=== PATIENT | female | born 1980 | race Caucasian/White ===

== ENCOUNTER 2019-07-10 11:49 | Emergency (ER) | payer OTHER, SELFPAY ==
[2019-07-10 12:00] VITALS: BP 115/83; PULSE 96; RESP 16; TEMP 36.8; O2SAT 99
--- NOTE | 2019-07-10 12:06 | ED.GENADULT ---
HPI - General Adult General Chief complaint: Headache Stated complaint: headache/right toe pain Time Seen by Provider: 07/10/19 12:06 Source: patient and RN notes reviewed Mode of arrival: ambulatory Limitations: no limitations History of Present Illness HPI narrative: 39-year-old female presents with complains of headache without aura for the past 4 days. Ibuprofen and Benadryl, last this morning @ 04:00 without relief. Yvonne says this SHEARER is not the WORST one of her life. History of Chiari malformation which causes her daily headaches after her decompression head surgery. Yvonne says she is waiting to have a shunt placed due to her recurrent SHEARER, wants to wait until her daughter graduate high school due to her long recover time from her previous surgery. No neck stiffness. No fever or chills. No URI symptoms. No head injury. History of migraines. Denies dizziness, vision change, confusion, or seizure activity. Yvonne denies being , history of Hysterectomy. The patient reports they have not been diagnosed with COVID-19. The patient reports they are not waiting for the results of a COVID-19 lab test. The patient reports they do not have fever, chills, weakness, fatigue, myalgia, or facial swelling. The patient reports they do not have a new or worsening cough or shortness of breath. Denies chest pain. The patient reports they do not have any rhinorrhea, congestion, sore throat, nausea, vomiting, abdominal pain, and diarrhea. Tolerating po intake well. Denies recent traveling. Denies concerns for COVID-19 or exposures been home since [id number] order except for essential household needs, working, and return home. At this time, patient is not suspected of having COVID-19. Complains of Right great toenail growing improperly after an injury 1 year ago. Yvonne is concern that fungus has set up in her toe. She cut majority of the toenail off due to it's appearance, no other treatment. Yvonne says the summer she was on the beach and opened a beach chair cause it clap down on her RT and LT great toenails. The LT toenail grew back properly but the RT has not. Denies drainage or swelling. Denies tenderness, numbness, tingling, or loss of mobility. No exacerbating factors. Denies inability to bear weight. Denies suspect foreign body. Denies fever or chills. Some parts of this dictation were generated by voice recognition software and may contain typographical and/or grammatical inaccuracies. Related Data Home Medications Medication Instructions Recorded Confirmed No Home Medications 07/10/19 07/10/19 Allergies Allergy/AdvReac Type Severity Reaction Status Date / Time morphine Allergy Mild NAUSEA AND Verified 03/19/18 14:45 VOMITING; SEVERE MIGRAINE NSAIDS (Non-Steroidal Allergy Unknown Verified 03/19/18 14:45 Anti-Inflamma HAIR DYE Allergy Unknown Uncoded 12/30/14 16:55 Review of Systems Review of Systems: Narrative: CONSTITUTIONAL: Denies fever, chills, sweats. EYES: Denies visual changes, redness, discharge. ENT: Denies rhinorrhea, congestion, sore throat, otalgia. CARDIOVASCULAR: Denies chest pain, palpitations, edema. RESPIRATORY: Denies dyspnea, wheezing, cough. GASTROINTESTINAL: Denies abdominal pain, nausea, vomiting, or diarrhea. GENITOURINARY: Denies dysuria, hematuria, abnormal discharge. SKIN: Denies rash or itching. Right great toenail growing improperly concern for fungus. MUSCULOSKELETAL: Denies acute back pain, joint pain, or myalgia. NEUROLOGIC: Denies numbness or focal weakness. Complaints of headaches. PSYCHIATRIC: Denies anxiety or depression. All systems reviewed & are unremarkable except as noted in HPI and below. [facility] Past Medical History Medical History (Updated 07/10/19 @ 14:41 by LILIYA Wheeler) Chiari malformation Neck pain Rheumatoid arthritis Uterine cancer Surgical History Surgical History (Updated 07/10/19 @ 14:41 by Trudy Garcia
[2019-07-10] MEDS: KETOROLAC (*BKC) 60 MG/2 ML VIAL IM (12:23)
== END 2019-07-10 12:55 | disposition home or self-care (01) ==
PROVIDERS: Emergency Provider Nurse Practitioner Family
DX: R51 Headache (principal); F17.210 Nicotine dependence, cigarettes, uncomplicated; Z98.2 Presence of cerebrospinal fluid drainage device
CPT/HCPCS: 96372; 99213; G0463; J1885

== ENCOUNTER 2019-07-22 12:32 | Emergency (ER) | payer OTHER, SELFPAY ==
--- NOTE | ~2019-07-22 | XR_ITS ---
XR ankle RT min 3V 07/22/2019 12:51 INDICATION: Right ankle pain PROCEDURE: 4 views right ankle COMPARISON: No prior studies for comparison. FINDINGS: Fracture, dislocation or subluxation is not identified. There is an osteochondral defect in volving the superior medial aspect of the talus. The soft tissues appear within normal limits. No fo reign bodies are identified. 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 Reviewed, dictated and finalized at location A.
--- NOTE | 2019-07-22 12:39 | ED.GENADULT ---
HPI - General Adult General Chief complaint: Extremity Injury, Lower Stated complaint: right ankle injury Time Seen by Provider: 07/22/19 12:39 Source: patient Mode of arrival: ambulatory Limitations: no limitations History of Present Illness HPI narrative: 39-year-old female patient presents to the [facility] with complaints of right ankle pain. Patient states that she was push mowing the grass yesterday and states that she thinks she did fell in some kind of arrival White and states that she rolled her right ankle. Patient states that since then she has been having pain and having trouble walking on it. Patient states that most of her pain is located on the medial side of the ankle however she does feel some numbness on the fourth and fifth digits of the toes on the right foot. Patient states she is been taking ibuprofen for pain. Patient states that she did fracture that foot in the past and had to have surgery on it about 2 years ago. Related Data Home Medications Medication Instructions Recorded Confirmed No Home Medications 07/10/19 07/22/19 Allergies Allergy/AdvReac Type Severity Reaction Status Date / Time morphine AdvReac Mild NAUSEA AND Verified 07/22/19 12:48 VOMITING; SEVERE MIGRAINE NSAIDS (Non-Steroidal AdvReac Unknown Nausea and Verified 07/22/19 12:48 Anti-Inflamma Vomiting HAIR DYE Allergy Unknown Uncoded 07/22/19 12:48 Review of Systems Review of Systems: Narrative: CONSTITUTIONAL: Denies fever, chills, or sweats. EYES: Denies visual changes, redness, or discharge. ENT: Denies rhinorrhea, congestion, sore throat, or otalgia. CARDIOVASCULAR: Denies chest pain, palpitations, or edema. RESPIRATORY: Denies cough or dyspnea. GASTROINTESTINAL: Denies abdominal pain, nausea, vomiting, or diarrhea. GENITOURINARY: Denies dysuria or hematuria. SKIN: Denies rash or itching. MUSCULOSKELETAL: Denies back pain, joint pain, or myalgia. Positive right ankle pain NEUROLOGIC: Denies headache, numbness, or weakness. PSYCHIATRIC: Denies anxiety or depression. [facility] Past Medical History Medical History Chiari malformation Neck pain Rheumatoid arthritis Uterine cancer Surgical History Surgical History History of bilateral breast reduction surgery History of brain surgery Decompression surgery History of hysterectomy Family History Family History Father Alive and well Mother Hypertension Heart disease Seizures Grandparent Family history of malignant neoplasm of cervix Father Patient's father is Mother Family history of epilepsy Social History Social History Smoking packs per day: 0.25 Smoking cigarettes per day: 5.0 Years smoked: 10 Smoking pack-years: 2.50 Smoking status: Light tobacco smoker Tobacco type: cigarettes Second hand tobacco smoke exposure: No Alcohol intake: current Substance use: current Substance use type: marijuana Additional occupation/education comments: Currently working from home scheduled to return next week per Yvonne Gender identity (if verbalized by the patient): Female Comments At the time of my signature I agree with nursing past medical history, surgical, social, and family history. There is no relevant family history pertinent to the presenting complaint. Exam Narrative: Exam Narrative: GENERAL: Well-appearing, well-nourished, and in no acute distress. HEAD: Normocephalic, atraumatic. EYES: PERRLA and EOMI. ENT: Nares clear, no rhinorrhea or epistaxis. Mucous membranes moist. NECK: Supple. No lymphadenopathy CHEST: Clear to auscultation. No respiratory distress. HEART: Regular rate and rhythm. No murmur heard. Normal peripheral pulses. ABDOMEN: Soft, nontender, nondistended, norm
[2019-07-22 12:41] VITALS: BP 121/80; PULSE 66; RESP 18; TEMP 37.6; O2SAT 99
== END 2019-07-22 13:09 | disposition home or self-care (01) ==
PROVIDERS: Emergency Provider Nurse Practitioner Family
DX: S93.401A Sprain of unspecified ligament of right ankle, initial encounter (principal); W18.42XA Slipping, tripping and stumbling without falling due to stepping into hole or opening, initial encounter
CPT/HCPCS: 73610; 99213; G0463

== ENCOUNTER 2020-10-24 11:01 | Emergency (ER) | payer OTHER, SELFPAY ==
[2020-10-24 11:16] VITALS: BP 94/67; PULSE 91; RESP 18; TEMP 36.5; O2SAT 98
--- NOTE | 2020-10-24 11:41 | ED.SKABFB ---
HPI - Skin/Abscess/Foreign Bdy General Chief complaint: Skin/Abscess/Foreign Body Stated complaint: shingles Source: patient and RN notes reviewed Mode of arrival: ambulatory History of Present Illness HPI narrative: This is a 40-year-old female who presented to urgent care with complaints of a rash to her right lower side. According the patient she has had shingles 5 times. 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 She noted that she woke up yesterday with burning and itching to the affected site. Patient notes that this time she had shingles that presented to the exact same way. Patient is currently taking gabapentin and notes that it is not relieving her pain. the patient denies SOB, CP, palpitation, extremity numbness, lightheadedness, dizziness, constipation, diarrhea, chills, or fever. MD complaint: rash Related Data Home Medications Medication Instructions Recorded Confirmed gabapentin 600 mg PO TID 10/24/20 10/24/20 Allergies Allergy/AdvReac Type Severity Reaction Status Date / Time morphine AdvReac Mild NAUSEA AND Verified 10/24/20 11:09 VOMITING; SEVERE MIGRAINE NSAIDS (Non-Steroidal AdvReac Unknown Nausea and Verified 10/24/20 11:09 Anti-Inflamma Vomiting HAIR DYE Allergy Unknown Itching Uncoded 10/24/20 11:09 Review of Systems Review of Systems: A 14 organ system Review of Systems was performed and pertinent positives included in the HPI, otherwise remaining ROS is negative. [facility] Past Medical History Medical History Chiari malformation Neck pain Rheumatoid arthritis Uterine cancer Surgical History Surgical History History of bilateral breast reduction surgery History of brain surgery Decompression surgery History of hysterectomy Family History Family History Father Alive and well Mother Hypertension Heart disease Seizures Grandparent Family history of malignant neoplasm of cervix Father Patient's father is Mother Family history of epilepsy Social History Social History Smoking packs per day: 0.25 Smoking cigarettes per day: 5.0 Years smoked: 10 Smoking pack-years: 2.50 Smoking status: Light tobacco smoker Tobacco type: cigarettes Second hand tobacco smoke exposure: No Alcohol intake: current Substance use: current Substance use type: marijuana Additional occupation/education comments: Currently working from home scheduled to return next week per Yvonne Gender identity (if verbalized by the patient): Female Exam Narrative: GENERAL: This is a well-nourished, well-developed patient, in no apparent distress. HEAD: normocephalic, atraumatic. EYES: PERRL. Sclera clear/white. Vision is grossly intact. EARS: External ears normal, auditory canals clear and without drainage, TMs normal without perforation. Hearing grossly intact. NOSE: External nose normal with no obvious nasal discharge, nares without redness, no rhinorrhea. THROAT: Mucous membranes moist, posterior pharynx clear. NECK: Neck supple, non-tender without lymphadenopathy, masses or thyromegaly. CARDIOVASCULAR: Regular rate and rhythm without murmurs, gallops, or rubs. RESPIRATORY: Clear to auscultation. Breath sounds equal bilaterally. No wheezes, rales, or rhonchi. GASTROINTESTINAL: Abdomen soft, non-tender, nondistended. Bowel sounds are active. No hepato-splenomegaly, or palpable masses. No guarding. SKIN: erythematous and maculopapular rash to the right lower waist NEURO: awake, alert, and oriented to person, place and time. There were no obvious focal neurologic abnormalities. Steady gait EXTREMITIES: Normal range of motion. No edema. No
== END 2020-10-24 11:58 | disposition home or self-care (01) ==
PROVIDERS: Emergency Provider Nurse Practitioner
DX: B02.9 Zoster without complications (principal); F17.210 Nicotine dependence, cigarettes, uncomplicated
CPT/HCPCS: 99213; G0463

== ENCOUNTER 2021-01-28 11:32 | Emergency (ER) | payer OTHER, SELFPAY ==
--- NOTE | ~2021-01-28 | XR_ITS ---
EXAMINATION: XR chest 2V DATE: 01/28/2021 12:12 INDICATION: COVID presenting with nonproductive cough TECHNIQUE: PA and lateral views of the chest were obtained. COMPARISON: None FINDINGS: The lungs are clear with no focal airspace opacities, pulmonary edema, pleural effusion or pneumothor ax. The cardiomediastinal silhouette is normal. Mild thoracic spondylosis. Cholecystectomy clips in t he right upper quadrant. IMPRESSION: 1. No acute cardiopulmonary disease. Reviewed, dictated and finalized at location B. [facility] [employer]
[2021-01-28 11:43] VITALS: BP 143/89; PULSE 93; RESP 16; TEMP 37.1; O2SAT 99
--- NOTE | 2021-01-28 12:04 | ED.URI ---
HPI - URI/Sore Throat General Chief Complaint: Upper Respiratory Infection Stated Complaint: cough/body aches Source: patient and RN notes reviewed Mode of arrival: ambulatory History of Present Illness HPI Narrative: This is a 41-year-old female who presented to urgent care status post Covid positive. According to patient over 14 days ago she tested positive for Covid she notes that multiple people in her family also tested positive. She notes that most of her family members have recovered she still experience uncontrollable cough with chest congestion. Patient notes that she has chest discomfort due to her cough she also notes that she takes her nebulizer treatments at home. Patient is satting in the upper 90s able to does not appear to be short of breath. The patient denies CP, palpitation, extremity numbness, lightheadedness, dizziness, constipation, diarrhea, chills, or fever. Related Data Home Medications Medication Instructions Recorded Confirmed gabapentin 600 mg PO TID 10/24/20 10/24/20 albuterol sulfate INHALATION 01/28/21 citalopram mg 01/28/21 Allergies Allergy/AdvReac Type Severity Reaction Status Date / Time morphine AdvReac Mild NAUSEA AND Verified 10/24/20 11:09 VOMITING; SEVERE MIGRAINE NSAIDS (Non-Steroidal AdvReac Unknown Nausea and Verified 10/24/20 11:09 Anti-Inflamma Vomiting HAIR DYE Allergy Unknown Itching Uncoded 10/24/20 11:09 Review of Systems Review of Systems: A 14 organ system Review of Systems was performed and pertinent positives included in the HPI, otherwise remaining ROS is negative. [facility] Past Medical History Medical History (Updated 01/28/21 @ 12:04 by BUTCH Chahal) Chiari malformation Neck pain Rheumatoid arthritis Uterine cancer Surgical History Surgical History History of bilateral breast reduction surgery History of brain surgery Decompression surgery History of hysterectomy Family History Family History Father Alive and well Mother Hypertension Heart disease Seizures Grandparent Family history of malignant neoplasm of cervix Father Patient's father is Mother Family history of epilepsy Social History Social History Smoking packs per day: 0.25 Smoking cigarettes per day: 5.0 Years smoked: 10 Smoking pack-years: 2.50 Smoking status: Light tobacco smoker Tobacco type: cigarettes Second hand tobacco smoke exposure: No Alcohol intake: current Substance use: current Substance use type: marijuana Additional occupation/education comments: Currently working from home scheduled to return next week per Yvonne Gender identity (if verbalized by the patient): Female Exam Narrative: GENERAL: This is a well-nourished, well-developed patient, appears anxious in no apparent distress. HEAD: normocephalic, atraumatic. EYES: PERRL. Sclera clear/white. Vision is grossly intact. EARS: External ears normal, auditory canals clear and without drainage, TMs normal without perforation. Hearing grossly intact. NOSE: External nose normal with no obvious nasal discharge, nares without redness, no rhinorrhea. THROAT: Mucous membranes moist, posterior pharynx clear. NECK: Neck supple, non-tender without lymphadenopathy, masses or thyromegaly. CARDIOVASCULAR: Regular rate and rhythm without murmurs, gallops, or rubs. RESPIRATORY: Clear to auscultation. Breath sounds equal bilaterally. No wheezes, rales, or rhonchi. GASTROINTESTINAL: Abdomen soft, non-tender, nondistended. Bowel sounds are active. No hepato-splenomegaly, or palpable masses. No guarding. SKIN: warm, intact with no suspicious lesions or rash, good texture and turgor. NEURO: awake, alert, and oriented to person, place and time. There were no obvious focal neurologic abnorm
--- NOTE | 2021-01-28 12:16 | PC.NURSE ---
xray done at 1203
== END 2021-01-28 12:25 | disposition home or self-care (01) ==
PROVIDERS: Emergency Provider Nurse Practitioner
DX: U09.9 Post COVID-19 condition, unspecified (principal); F17.210 Nicotine dependence, cigarettes, uncomplicated; M06.9 Rheumatoid arthritis, unspecified; Z85.42 Personal history of malignant neoplasm of other parts of uterus
CPT/HCPCS: 71046; 99213; G0463

== ENCOUNTER 2021-04-17 09:50 | Emergency (ER) | payer OTHER, SELFPAY ==
[2021-04-17 10:09] VITALS: BP 128/93; PULSE 96; RESP 16; TEMP 36.3; O2SAT 99
--- NOTE | 2021-04-17 10:51 | ED.ABDPAIN ---
HPI - Abdominal Pain General Chief Complaint: Abdominal Pain Stated Complaint: Fever/abd pain/right leg weakness Time Seen by Provider: 04/17/21 10:51 Source: patient Mode of arrival: ambulatory Limitations: no limitations History of Present Illness HPI narrative: Yvonne Fonseca is a 41-year-old female who comes to [facility] with complaints of abdominal pain that have been worsening over the last week; she is also has sciatica; states that her pain is about 8 out of 10 lower abdomen; was hoping that she had a UTI; pain on side curled up in a ball Related Data Home Medications Medication Instructions Recorded Confirmed gabapentin 600 mg PO TID 10/24/20 10/24/20 citalopram mg 01/28/21 ibuprofen 04/17/21 tizanidine mg 04/17/21 Allergies Allergy/AdvReac Type Severity Reaction Status Date / Time benzonatate Allergy Hives Verified 04/17/21 11:49 [From Germán Gorman] morphine AdvReac Mild NAUSEA AND Verified 04/17/21 11:49 VOMITING; SEVERE MIGRAINE NSAIDS (Non-Steroidal AdvReac Unknown Nausea and Verified 04/17/21 11:49 Anti-Inflamma Vomiting HAIR DYE Allergy Unknown Itching Uncoded 04/17/21 11:49 Review of Systems Review of Systems: CONSTITUTIONAL: Denies fever, chills, sweats. EYES: Denies visual changes, redness, discharge. ENT: Denies rhinorrhea, congestion, sore throat, otalgia. CARDIOVASCULAR: Denies chest pain, palpitations, edema. RESPIRATORY: Denies dyspnea, wheezing, cough GASTROINTESTINAL: Has abdominal pain, nausea, vomiting, diarrhea. GENITOURINARY: Denies dysuria, hematuria, abnormal discharge SKIN: Denies rash or itching. NEUROLOGIC: Denies numbness, or focal weakness. PSYCHIATRIC: Denies anxiety or depression. [facility] Past Medical History Medical History (Updated 04/17/21 @ 14:04 by Sushil Montoya MD) Chiari malformation Neck pain Rheumatoid arthritis Uterine cancer Surgical History Surgical History History of bilateral breast reduction surgery History of brain surgery Decompression surgery History of hysterectomy Family History Family History Father Alive and well Mother Hypertension Heart disease Seizures Grandparent Family history of malignant neoplasm of cervix Father Patient's father is Mother Family history of epilepsy Social History Social History Smoking packs per day: 0.25 Smoking cigarettes per day: 5.0 Years smoked: 10 Smoking pack-years: 2.50 Smoking status: Light tobacco smoker Tobacco type: cigarettes Second hand tobacco smoke exposure: No Alcohol intake: current Substance use: current Substance use type: marijuana Additional occupation/education comments: Currently working from home scheduled to return next week per Yvonne Gender identity (if verbalized by the patient): Female Comments At time of signature, I agree with nursing past medical, surgical, social and family history. There is no relevant family history pertinent to the presenting complaint. Blood pressure elevation may be due to pain at this time Exam Narrative: GENERAL: This is a well-nourished, well-developed patient, in moderate distress. HEAD: normocephalic, atraumatic. EYES: . Sclera clear/white. Vision is grossly intact. EARS: External ears normal, . Hearing grossly intact. NOSE: External nose normal without nasal discharge, nares without redness, no rhinorrhea. THROAT: Mucous membranes moist, NECK: Neck supple, non-tender CARDIOVASCULAR: Tachycardic rate and rhythm without murmurs, gallops, or rubs. RESPIRATORY: Clear to auscultation. Breath sounds equal bilaterally. No wheezes, rales, or rhonchi. GASTROINTESTINAL: Abdomen soft, non-tender, SKIN: warm, intact with no suspicious lesions or rash, good texture and turgor. NEURO: awake, alert, and
== END 2021-04-17 11:02 | disposition short-term general hospital (02) ==
PROVIDERS: Emergency Provider Nurse Practitioner
DX: R10.84 Generalized abdominal pain (principal); F17.210 Nicotine dependence, cigarettes, uncomplicated; M06.9 Rheumatoid arthritis, unspecified; Z85.42 Personal history of malignant neoplasm of other parts of uterus
CPT/HCPCS: 99212; G0463

== ENCOUNTER 2021-04-17 11:13 | Emergency (ER) | payer OTHER, SELFPAY ==
--- NOTE | ~2021-04-17 | US_ITS ---
EXAMINATION: US pelvic complete DATE: 04/17/2021 13:40 INDICATION: Right lower quadrant abdominal pain. TECHNIQUE: Multiple transabdominal and transvaginal sonographic images of the pelvis were obtained. COMPARISON: CT abdomen and pelvis 04/17/2021 FINDINGS: TRANSABDOMINAL ULTRASOUND: The uterus is absent. There is no free fluid in the pelvis. TRANSVAGINAL ULTRASOUND: The right ovary measures 2.5 x 1.8 x 1.8 cm. The left ovary measures 2.7 x 2.0 x 1.8 cm. There is nor mal vascular flow in the ovaries. IMPRESSION: 1. Normal ovaries. 2. Absent uterus. Reviewed, dictated and finalized at location A. [employer]
--- NOTE | ~2021-04-17 | CT_ITS ---
EXAMINATION: CT abdomen pelvis w con DATE: 04/17/2021 12:30 INDICATION: Right lower quadrant abdominal pain. TECHNIQUE: Computed tomography (CT) of the abdomen and pelvis was performed with 100 mL Omnipaque 350 intravenous contrast. Automated exposure control and iterative reconstruction technique were employe d. The dose-length product was 905.95 mGy-cm. COMPARISON: CT abdomen and pelvis 12/03/2016 FINDINGS: The visualized portions of the lung bases are clear without pneumonia or pleural effusion. The heart size is normal. No pericardial effusion. There is a 6 mm cyst in the liver. There are oneill es of cholecystectomy. The spleen, pancreas, and adrenal glands are normal. There is cortical thinnin g of the kidneys. There are 3 stones measuring up to 3 mm in left kidney. There are no dilated loops of bowel. The appendix is normal. There are no pathologically enlarged lymph nodes. There is no free intraperitoneal fluid. There is mild lumbar spondylosis. IMPRESSION: 1. Small nonobstructing left kidney stones. Reviewed, dictated and finalized at location A. [employer]
[2021-04-17 11:15] VITALS: BP 144/71; PULSE 115; RESP 19; TEMP 37; O2SAT 100
[2021-04-17 12:07] VITALS: BP 135/77; PULSE 87; RESP 20; O2SAT 100
[2021-04-17 12:07] LABS: Basophils Absolute Auto 0.1 K/mm3 (0.0-0.1); Basophils Percent Auto 0.5 % (0.2-1.2); Eosinophils Absolute Auto 0.2 K/mm3 (0-0.3); Eosinophils Percent Auto 1.8 % (0-4.4); Hematocrit 39.1 % (37.0-47.0); Hemoglobin 13.6 g/dL (12.0-15.0); Immature Granulocyte Absolute 0.03 K/mm3 (0.00-0.031); Immature Granulocyte Percent A 0.3 % (0-0.5); Lymphocytes Absolute Auto 2.88 K/mm3 (0.9-3.2); Mean Corpuscular HGB Conc 34.8 g/dl (32-36); Mean Corpuscular Hemoglobin 30.8 pg (26-34); Mean Corpuscular Volume 88.5 fl (80-100); Mean Platelet Volume 10.5 fl (7.4-10.4); Monocytes Absolute Auto 0.7 K/mm3 (0.1-0.6); Monocytes Percent Auto 6.5 % (2.6-8.5); Neutrophils Absolute Auto 6.8 K/mm3 (1.3-6.7); Neutrophils Percent Auto 63.9 % (45.5-73.1); Platelet Count Result 215 k/mm3 (150-375); Red Blood Count 4.42 M/mm3 (4.2-5.4); Red Cell Distribution Width 12.7 % (11.5-14.5); White Blood Count 10.7 K/mm3 (4.5-10.0)
--- NOTE | 2021-04-17 12:11 | ED.ABDPAIN ---
HPI - Abdominal Pain General Chief Complaint: Abdominal Pain Stated Complaint: abd pain Time Seen by Provider: 04/17/21 11:58 Source: patient and RN notes reviewed History of Present Illness HPI narrative: 41-year-old female presenting to the emergency department for evaluation of right lower quadrant pain. Patient states the pain started 10 days ago and had previously been intermittent at her right lower quadrant. Patient states for the last 10 days the pain has continued to worsen and is now more persistent. Patient does report associated nausea. Patient does have a prior history of cholecystectomy and partial hysterectomy. Patient had a history of cancer and did have her uterus removed. Patient still has her fallopian tubes and ovaries. Remote hsx of ovarian cysts. Related Data Home Medications Medication Instructions Recorded Confirmed gabapentin 600 mg PO TID 10/24/20 10/24/20 citalopram mg 01/28/21 ibuprofen 04/17/21 tizanidine mg 04/17/21 Allergies Allergy/AdvReac Type Severity Reaction Status Date / Time benzonatate Allergy Hives Verified 04/17/21 11:49 [From Germán Gorman] morphine AdvReac Mild NAUSEA AND Verified 04/17/21 11:49 VOMITING; SEVERE MIGRAINE NSAIDS (Non-Steroidal AdvReac Unknown Nausea and Verified 04/17/21 11:49 Anti-Inflamma Vomiting HAIR DYE Allergy Unknown Itching Uncoded 04/17/21 11:49 Review of Systems Review of Systems: CONSTITUTIONAL: Denies fever, chills, or sweats. EYES: Denies visual changes, redness, or discharge. ENT: Denies rhinorrhea, congestion, sore throat, or otalgia. CARDIOVASCULAR: Denies chest pain, palpitations, or edema. RESPIRATORY: Denies cough or dyspnea. GASTROINTESTINAL: Right lower quadrant pain with associated nausea GENITOURINARY: No current dysuria or hematuria SKIN: Denies rash or itching. MUSCULOSKELETAL: Denies back pain, joint pain, or myalgia. NEUROLOGIC: Denies headache, numbness, or weakness. [facility] Past Medical History Medical History (Updated 04/17/21 @ 14:04 by Sushil Montoya MD) Chiari malformation Neck pain Rheumatoid arthritis Uterine cancer Surgical History Surgical History History of bilateral breast reduction surgery History of brain surgery Decompression surgery History of hysterectomy Family History Family History Father Alive and well Mother Hypertension Heart disease Seizures Grandparent Family history of malignant neoplasm of cervix Father Patient's father is Mother Family history of epilepsy Social History Social History Smoking packs per day: 0.25 Smoking cigarettes per day: 5.0 Years smoked: 10 Smoking pack-years: 2.50 Smoking status: Light tobacco smoker Tobacco type: cigarettes Second hand tobacco smoke exposure: No Alcohol intake: current Substance use: current Substance use type: marijuana Additional occupation/education comments: Currently working from home scheduled to return next week per Yvonne Gender identity (if verbalized by the patient): Female Exam Narrative: APPEARANCE: Well appearing, no pain, no distress, well-nourished. HEAD: normocephalic, atraumatic. EYES: PERRLA/EOMI, conjunctivae clear. NOSE: Normal no drainage RESPIRATORY: Airway patent, respirations nonlabored. Clear to auscultation bilaterally, no rales, rhonchi, wheezing. CARDIOVASCULAR: Regular rate and rhythm without murmurs rubs or gallops. ABDOMINAL: Right lower quadrant tenderness to palpation. MUSCULOSKELETAL: Moves all extremities. Strength/ROM intact, No edema, No calf tenderness. SKIN: Warm, dry. Normal Color PSYCHIATRIC: Normal affect/mood. Course Course Emergency Course: Patient reports he does feel some improvement with treatment. Patient was updated on the results of her CT s
[2021-04-17 12:18] LABS: Alanine Aminotransferase 21 U/L (4-35); Albumin Level 4.7 g/dL (3.5-5.1); Alkaline Phosphatase 55 U/L (38-126); Anion Gap 5 mmol/L (8-16); Aspartate Amino Transferase 26 U/L (14-36); Bilirubin,Total 0.3 mg/dL (0.2-1.3); Blood Urea Nitrogen 9 mg/dL (7-17); Calcium 8.8 mg/dL (8.4-10.2); Carbon Dioxide 28 mmol/L (22-30); Chloride 109 mmol/L (98-107); Estimated CRCL calculation 119 ml/min; Estimated Glomerular Filt Rate > 60; Glucose 104 mg/dL (65-110); Lipase 129 U/L (23-300); Potassium 3.8 mmol/L (3.4-5.0); Sodium 142 mmol/L (137-145)
[2021-04-17 12:26] LABS: Add Urine Microscopic? YES; Appearance Urine Clear (Clear); Bilirubin Urine Negative (Negative); Blood Urine 1+ (Negative); Color Urine Yellow (Yellow); Glucose Urine UA 1+ mg/dL (Negative); Ketones Urine Negative (Negative); Leukocyte Esterase Ur Negative LEU/UL (Negative); Mucus Urine Rare /lpf; Nitrate Urine Negative (Negative); Protein Urine Negative (Negative); Specific Grav Ur 1.018 (1.001-1.035); Squamous Epithelial Cell Urine Occasional /hpf (Few); Urobilinogen Urine Negative mg/dL (<2.0); WBC Urine 0-3 /hpf
[2021-04-17] MEDS: ONDANSETRON INJ 4 MG/2 ML VIAL IV PUSH (12:34)
[2021-04-17] MEDS: HYDROmorphone HCL INJ (*CRX) 1 MG/ML SYR IV PUSH (12:34)
[2021-04-17 13:36] VITALS: PULSE 74; RESP 20; O2SAT 98
[2021-04-17 14:16] VITALS: BP 135/77; PULSE 81; RESP 18; O2SAT 99
== END 2021-04-17 14:18 | disposition home or self-care (01) ==
PROVIDERS: Nurse Practitioner Family; Emergency Provider Emergency Medicine
DX: R10.31 Right lower quadrant pain (principal); M06.9 Rheumatoid arthritis, unspecified; Z85.41 Personal history of malignant neoplasm of cervix uteri; Z87.442 Personal history of urinary calculi; F17.210 Nicotine dependence, cigarettes, uncomplicated; Z90.710 Acquired absence of both cervix and uterus
CPT/HCPCS: 36415; 74177; 76856; 80053; 81001; 81025; 83690; 85025; 96374; 96375; 99212; 99284; G0463; J1170; J2405; Q9967

== ENCOUNTER 2021-06-07 09:40 | Emergency (ER) | payer BC, SELFPAY ==
--- NOTE | 2021-06-07 09:49 | ED.SKABFB ---
HPI - Skin/Abscess/Foreign Bdy General Chief complaint: Skin/Abscess/Foreign Body Stated complaint: Rash Time Seen by Provider: 06/07/21 09:52 Source: patient Mode of arrival: ambulatory Limitations: no limitations History of Present Illness HPI narrative: 41-year-old female presented for complaint of concern for shingles on the left arm, first noticed the lesions yesterday. She endorses this would be her fifth episode of shingles. Pain is described as burning and shooting, radiates from elbow to shoulder and to the side and bra area. She denies numbness, tingling, or weakness the extremity. Denies recent illness. She takes gabapentin scheduled for low back pain and cannot tolerate NSAIDs. MD complaint: rash Related Data Home Medications Medication Instructions Recorded Confirmed gabapentin 600 mg PO TID 10/24/20 06/07/21 citalopram 20 mg PO DAILY 01/28/21 06/07/21 ibuprofen 600 mg PO DIRECTED 04/17/21 06/07/21 tizanidine 4 mg PO DAILY 04/17/21 06/07/21 methylphenidate HCl 46 mg PO DIRECTED 06/07/21 06/07/21 Allergies Allergy/AdvReac Type Severity Reaction Status Date / Time benzonatate Allergy Hives Verified 06/07/21 09:45 [From Germán Gorman] morphine AdvReac Mild NAUSEA AND Verified 06/07/21 09:45 VOMITING; SEVERE MIGRAINE NSAIDS (Non-Steroidal AdvReac Unknown Nausea and Verified 06/07/21 09:45 Anti-Inflamma Vomiting HAIR DYE Allergy Unknown Itching Uncoded 06/07/21 09:45 Review of Systems Review of Systems: CONSTITUTIONAL: Denies body aches, fever, chills, or sweats. EYES: Denies visual changes, redness, or discharge. ENT: Denies rhinorrhea, congestion, sore throat, or otalgia. CARDIOVASCULAR: Denies chest pain, palpitations, or edema. RESPIRATORY: Denies cough or dyspnea. GASTROINTESTINAL: Denies abdominal pain, nausea, vomiting, or diarrhea. GENITOURINARY: Denies dysuria or hematuria. SKIN: left arm skin lesions MUSCULOSKELETAL: Denies back pain, joint pain, or myalgia. NEUROLOGIC: Denies headache, numbness, tingling, or weakness. PSYCH: Denies depression or anxiety. [facility] Past Medical History Medical History (Updated 06/07/21 @ 10:04 by Tita Redd APRN) Chiari malformation Neck pain Rheumatoid arthritis Uterine cancer Surgical History Surgical History History of bilateral breast reduction surgery History of brain surgery Decompression surgery History of hysterectomy Family History Family History Father Alive and well Mother Hypertension Heart disease Seizures Grandparent Family history of malignant neoplasm of cervix Father Patient's father is Mother Family history of epilepsy Social History Social History Smoking packs per day: 0.25 Smoking cigarettes per day: 5.0 Years smoked: 10 Smoking pack-years: 2.50 Smoking status: Light tobacco smoker Tobacco type: cigarettes Second hand tobacco smoke exposure: No Alcohol intake: current Substance use: current Substance use type: marijuana Additional occupation/education comments: Currently working from home scheduled to return next week per Yvonne Gender identity (if verbalized by the patient): Female Comments At time of signature, I have reviewed and agree with nursing past medical, surgical, social and family history unless otherwise noted. Please see nursing chart for further information. There is no relevant family history pertinent to the presenting complaint Exam Narrative: GENERAL: Well-appearing HEAD: Normocephalic, atraumatic. EYES: conjunctivae clear, and EOMI. ENT: Mucous membranes moist. Oropharynx without edema, erythema or lesions. NECK: Supple. No lymphadenopathy CHEST: Clear to auscultation. No respiratory distress. HEART: Regular rate and rhythm. SKIN
[2021-06-07 09:52] VITALS: BP 142/87; PULSE 99; RESP 18; TEMP 36.6; O2SAT 100
== END 2021-06-07 10:08 | disposition home or self-care (01) ==
PROVIDERS: Emergency Provider Nurse Practitioner Family
DX: B02.9 Zoster without complications (principal); F17.210 Nicotine dependence, cigarettes, uncomplicated; F12.90 Cannabis use, unspecified, uncomplicated; Q07.00 Arnold-Chiari syndrome without spina bifida or hydrocephalus; M06.9 Rheumatoid arthritis, unspecified; Z85.42 Personal history of malignant neoplasm of other parts of uterus
CPT/HCPCS: 99213; G0463

== ENCOUNTER 2021-08-03 18:28 | Emergency (ER) | payer BC, OTHER, SELFPAY ==
--- NOTE | ~2021-08-03 | CT_ITS ---
EXAMINATION: CT diagnostic chest wo con DATE: 08/03/2021 21:14 INDICATION: L breast pain, r/o abscess? TECHNIQUE: Computed tomography (CT) of the chest was performed without intravenous contrast. Automate d exposure control and iterative reconstruction technique were employed. The dose-length product was 209.69 mGy-cm. COMPARISON: None. FINDINGS: CHEST: Thoracic aorta: No significant dilation or calcification. Lung parenchyma and airways: Lungs and airwarys are clear. Thoracic inlet, axillae and chest wall: No thyroid or soft tissue mass. No axillary lymphadenopathy. Mediastinum: No mass or lymphadenopathy. Heart and pericardium: Normal heart size. No pericardial effusion. Coronary artery calcifications: Absent. Pleura: No effusion or mass. Upper abdomen: No significant finding. Thoracic bones: No acute osseous finding in the chest. IMPRESSION: No acute thoracic process or left breast abnormality detected. Consider nonemergent outpatient breast ultrasound and possibly mammography for further evaluation, particularly if symptoms do not susana or respond to appropriate therapy. Reviewed, dictated and finalized at location K. IMPRESSION: No acute thoracic process or left breast abnormality detected. Consider nonemer gent outpatient breast ultrasound and possibly mammography for further evaluati on, particularly if symptoms do not susana or respond to appropriate therapy.
[2021-08-03 18:30] VITALS: BP 121/71; PULSE 99; RESP 14; TEMP 36.7; O2SAT 97
--- NOTE | 2021-08-03 19:37 | ED.GENADULT ---
HPI - General Adult General Chief complaint: Skin/Abscess/Foreign Body Stated complaint: lump on my breast Time Seen by Provider: 08/03/21 19:07 Source: patient Mode of arrival: ambulatory Limitations: no limitations History of Present Illness HPI narrative: Patient is a 41-year-old female who presents the ED with report of L breast pain. Patient reports she first noticed a small tender bump on the areola of her left breast last night. She then states she woke up with this morning related severe pain in her left-sided breast located around the bump. She reports having swelling in her left-sided breast, but no erythema or warmth. She has taken Tylenol at home for the pain. She states she is unable to take NSAIDs at this time because she is undergoing a GI evaluation soon. Patient also reports having intermittent fevers for the past several months, denies any fever today. No chills, sweats, nausea, vomiting, firmness of breast, chest pain, shortness breath, cough. Related Data Home Medications Medication Instructions Recorded Confirmed gabapentin 600 mg tablet 600 mg PO TID 10/24/20 06/07/21 citalopram 20 mg tablet 20 mg PO DAILY 01/28/21 06/07/21 ibuprofen 600 mg tablet 600 mg PO DIRECTED 04/17/21 06/07/21 tizanidine 4 mg tablet 4 mg PO DAILY 04/17/21 06/07/21 methylphenidate HCl 36 mg 46 mg PO DIRECTED 06/07/21 06/07/21 tablet,extended release 24 hr Allergies Allergy/AdvReac Type Severity Reaction Status Date / Time benzonatate Allergy Hives Verified 08/03/21 18:46 [From Germán Gorman] morphine AdvReac Mild NAUSEA AND Verified 08/03/21 18:46 VOMITING; SEVERE MIGRAINE NSAIDS (Non-Steroidal AdvReac Unknown Nausea and Verified 08/03/21 18:46 Anti-Inflamma Vomiting HAIR DYE Allergy Unknown Itching Uncoded 08/03/21 18:46 Review of Systems Review of Systems: CONSTITUTIONAL: Denies fever, chills, or sweats. CARDIOVASCULAR: Denies chest pain. RESPIRATORY: Denies cough or dyspnea. GASTROINTESTINAL: Denies nausea, vomiting. GENITOURINARY: Denies dysuria or hematuria. SKIN: Reports painful bump to left areola. Denies rash or itching. Denies firmness of breast. MUSCULOSKELETAL: Reports pain to left breast. Denies back pain, joint pain. All systems reviewed & are unremarkable except as noted in HPI and below PMFSH Past Medical History Medical History (Updated 08/03/21 @ 22:56 by Jamee Rodriguez PA-C) Chiari malformation Neck pain Rheumatoid arthritis Uterine cancer Surgical History Surgical History (Updated 08/03/21 @ 19:46 by Jamee Rodriguez PA-C) History of bilateral breast reduction surgery History of brain surgery Decompression surgery History of cholecystectomy History of hysterectomy Family History Family History Father Alive and well Mother Hypertension Heart disease Seizures Grandparent Family history of malignant neoplasm of cervix Father Patient's father is Mother Family history of epilepsy Social History Social History (Updated 08/03/21 @ 19:52 by Jamee Rodriguez PA-C) Smoking packs per day: 0.25 Smoking cigarettes per day: 5.0 Years smoked: 10 Smoking pack-years: 2.50 Smoking status: Light tobacco smoker Tobacco type: e-cigarettes/vaping Second hand tobacco smoke exposure: No Alcohol intake: current Substance use: current Substance use type: marijuana Additional occupation/education comments: Currently working from home scheduled to return next week per Yvonne Gender identity (if verbalized by the patient): Female Exam Narrative: GENERAL: Well appearing, well-nourished, non-toxic, in no acute distress. HEAD: Normocephalic, atraumatic. NECK: Supple. No adenopathy, no masses. BREAST: Small bump/wrinkle in 12 o'clock region of L breast areola, tender to touch. No fluctuance or induration in entirety of left breast. No surrounding redness, warmth.
[2021-08-03 20:18] LABS: Basophils Absolute Auto 0.1 K/mm3 (0.0-0.1); Basophils Percent Auto 0.5 % (0.2-1.2); Eosinophils Absolute Auto 0.2 K/mm3 (0-0.3); Hematocrit 40.9 % (37.0-47.0); Hemoglobin 13.9 g/dL (12.0-15.0); Immature Granulocyte Absolute 0.03 K/mm3 (0.00-0.031); Immature Granulocyte Percent A 0.3 % (0-0.5); Lymphocytes Absolute Auto 3.57 K/mm3 (0.9-3.2); Lymphocytes Percent Auto 32.9 % (18.3-44.2); Mean Corpuscular Hemoglobin 29.9 pg (26-34); Mean Platelet Volume 10.2 fl (7.4-10.4); Monocytes Absolute Auto 0.7 K/mm3 (0.1-0.6); Monocytes Percent Auto 6.3 % (2.6-8.5); Neutrophils Absolute Auto 6.3 K/mm3 (1.3-6.7); Platelet Count Result 241 k/mm3 (150-375); Red Blood Count 4.65 M/mm3 (4.2-5.4); Red Cell Distribution Width 12.3 % (11.5-14.5); White Blood Count 10.9 K/mm3 (4.5-10.0)
[2021-08-03 20:35] LABS: Alanine Aminotransferase 28 U/L (6-35); Albumin Level 4.8 g/dL (3.5-5.1); Alkaline Phosphatase 75 U/L (38-126); Anion Gap 7 mmol/L (8-16); Aspartate Amino Transferase 27 U/L (14-36); Bilirubin,Total 0.5 mg/dL (0.2-1.3); Blood Urea Nitrogen 15 mg/dL (7-17); Calcium 8.8 mg/dL (8.4-10.2); Carbon Dioxide 28 mmol/L (22-30); Chloride 103 mmol/L (98-107); Estimated CRCL calculation 101 ml/min; Estimated Glomerular Filt Rate > 60; Glucose 104 mg/dL (65-110); Potassium 3.9 mmol/L (3.4-5.0); Sodium 138 mmol/L (137-145)
[2021-08-03 21:31] VITALS: BP 122/74; PULSE 86; RESP 16; TEMP 37.1; O2SAT 97
[2021-08-03] MEDS: KETOROLAC 30 MG/ML VIAL (*BKC) IV PUSH (22:03)
[2021-08-03] MEDS: ONDANSETRON INJ 4 MG/2 ML VIAL IV PUSH (22:03)
[2021-08-03] MEDS: MORPHINE SULFATE (*CRX) 4 MG/ML INJ IV PUSH (22:04)
[2021-08-03 23:13] VITALS: BP 120/71; PULSE 80; RESP 16; O2SAT 98
== END 2021-08-03 23:13 | disposition home or self-care (01) ==
PROVIDERS: Physician Assistant; Emergency Provider Emergency Medicine
DX: N64.4 Mastodynia (principal); N63.20 Unspecified lump in the left breast, unspecified quadrant; F17.210 Nicotine dependence, cigarettes, uncomplicated
CPT/HCPCS: 36415; 71250; 80053; 85025; 96365; 96375; 99284; J0131; J1885; J2270; J2405

== ENCOUNTER 2021-09-02 12:31 | Outpatient (CLI) | payer BC, OTHER, SELFPAY ==
--- NOTE | ~2021-09-02 | MMUS_ITS ---
EXAMINATION: MM diagnostic rakan BI w jair, US breast LT limited HISTORY: Diffuse bilateral mastodynia, recent left breast abscess responsive to antibiotic therapy TECHNIQUE: Craniocaudal, mediolateral, and mediolateral oblique 3-D tomosynthesis images of the breas ts were performed and synthetic 2-D images were generated. CAD analysis was submitted and interpreted . High resolution limited right breast ultrasound was performed. COMPARISON: None, baseline BREAST PARENCHYMAL COMPOSITION: There are scattered areas of fibroglandular density. FINDINGS: MAMMOGRAPHIC FINDINGS: There is no suspicious mass, calcification, or architectural distortion in either breast to suggest malignancy. No mammographic correlate is identified for the patient's reported breast pain. ULTRASOUND: There is no evidence of focal abnormal solid or cystic mass in the vicinity of the patient's prior br east abscess. IMPRESSION: 1. No specific mammographic or sonographic correlate is identified for the patient's breast pain Furt her evaluation at this time should be based on clinical assessment. Continued follow-up physical exam ination is recommended. 2. Recommend routine screening mammography in one year. BI-RADS Category 1: Negative Reviewed, dictated and finalized at location A. IMPRESSION: 1. No specific mammographic or sonographic correlate is identified for the camilla ent's breast pain Further evaluation at this time should be based on clinical a ssessment. Continued follow-up physical examination is recommended. 2. Recommend routine screening mammography in one year. BI-RADS Category 1: Negative
== END 2021-09-02 12:32 | disposition home or self-care (01) ==
LOC: ANHIMG 12:33
PROVIDERS: Visit Provider Obstetrics & Gynecology
DX: N64.4 Mastodynia (principal)
CPT/HCPCS: 76642; 77062; 77066; G0279

== ENCOUNTER 2021-09-26 18:19 | Emergency (ER) | payer BC, OTHER, SELFPAY ==
--- NOTE | ~2021-09-26 | XR_ITS ---
EXAM: XR foot RT min 3V DATE: 09/26/2021 18:46 HISTORY: fall two days ago, bruising dorsal of 1st and 2nd . COMPARISON: None available. FINDINGS: Normal mineralization. No fracture or dislocation. No lytic or blastic lesion. Scattered d egenerative change. No erosion or periosteal change. Soft tissues within normal limits. IMPRESSION: No acute osseous finding in the right foot. Reviewed, dictated and finalized at location K.
[2021-09-26 18:33] VITALS: BP 118/70; PULSE 93; RESP 16; TEMP 36.1; O2SAT 100
--- NOTE | 2021-09-26 19:29 | ED.LOWEXIN ---
HPI - Extremity Injury (Lower) General Chief Complaint: Extremity Injury, Lower Stated Complaint: Right Foot Pain Time Seen by Provider: 09/26/21 19:24 Source: patient Mode of arrival: ambulatory Limitations: no limitations History of Present Illness HPI Narrative: Patient presents today complaining of right foot injury. States she tripped over a gas pump hose yesterday injuring. She was subsequently seen at an urgent care close by, but the only x-rayed her ankle instead of where her primary pain was, her foot. Denies numbness or tingling. She has been taking Tylenol and ibuprofen without relief. Related Data Home Medications Medication Instructions Recorded Confirmed gabapentin 600 mg tablet 600 mg PO TID 10/24/20 09/26/21 citalopram 20 mg tablet 20 mg PO DAILY 01/28/21 09/26/21 ibuprofen 600 mg tablet 600 mg PO DIRECTED 04/17/21 09/26/21 tizanidine 4 mg tablet 4 mg PO DAILY 04/17/21 09/26/21 methylphenidate HCl 36 mg 46 mg PO DIRECTED 06/07/21 09/26/21 tablet,extended release 24 hr Allergies Allergy/AdvReac Type Severity Reaction Status Date / Time benzonatate Allergy Hives Verified 09/26/21 18:50 [From Germán Gorman] morphine AdvReac Mild NAUSEA AND Verified 09/26/21 18:50 VOMITING; SEVERE MIGRAINE NSAIDS (Non-Steroidal AdvReac Unknown Nausea and Verified 09/26/21 18:50 Anti-Inflamma Vomiting HAIR DYE Allergy Unknown Itching Uncoded 09/26/21 18:50 Review of Systems Review of Systems: CONSTITUTIONAL: Denies body aches, fever, chills, or sweats. EYES: Denies visual changes, redness, or discharge. ENT: Denies rhinorrhea, congestion, sore throat, or otalgia. CARDIOVASCULAR: Denies chest pain, palpitations, or edema. RESPIRATORY: Denies cough or dyspnea. GASTROINTESTINAL: Denies abdominal pain, nausea, vomiting, or diarrhea. GENITOURINARY: Denies dysuria or hematuria. SKIN: Denies rash, itching, or wounds. MUSCULOSKELETAL: Denies back pain, or myalgia.+Right foot pain and bruising NEUROLOGIC: Denies headache, numbness, tingling, or weakness. PSYCH: Denies depression or anxiety. [facility] Past Medical History Medical History Chiari malformation Neck pain Rheumatoid arthritis Uterine cancer Surgical History Surgical History History of bilateral breast reduction surgery History of brain surgery Decompression surgery History of cholecystectomy History of hysterectomy Family History Family History Father Alive and well Mother Hypertension Heart disease Seizures Grandparent Family history of malignant neoplasm of cervix Father Patient's father is Mother Family history of epilepsy Social History Social History Smoking packs per day: 0.25 Smoking cigarettes per day: 5.0 Years smoked: 10 Smoking pack-years: 2.50 Smoking status: Light tobacco smoker Tobacco type: e-cigarettes/vaping Second hand tobacco smoke exposure: No Alcohol intake: current Substance use: current Substance use type: marijuana Additional occupation/education comments: Currently working from home scheduled to return next week per [facility] Gender identity (if verbalized by the patient): Female Comments At time of signature, I have reviewed and agree with nursing past medical, surgical, social and family history unless otherwise noted. Please see nursing chart for further information. There is no relevant family history pertinent to the presenting complaint Exam Narrative: GENERAL: Well-appearing, well-nourished, and in no acute distress. HEAD: Normocephalic, atraumatic. EYES: EOMI. No redness or drainage. Conjunctivae normal. ENT: Mucous membranes pink and moist. NECK: Normal AROM. CHEST: No respiratory
== END 2021-09-26 19:36 | disposition home or self-care (01) ==
PROVIDERS: Emergency Provider Nurse Practitioner
DX: S90.31XA Contusion of right foot, initial encounter (principal); W18.49XA Other slipping, tripping and stumbling without falling, initial encounter; M06.9 Rheumatoid arthritis, unspecified; Z85.42 Personal history of malignant neoplasm of other parts of uterus; F17.290 Nicotine dependence, other tobacco product, uncomplicated
CPT/HCPCS: 73630; 99213; G0463

== ENCOUNTER 2022-01-09 12:50 | Emergency (ER) | payer BC, MEDICAID, SELFPAY ==
[2022-01-09 14:38] VITALS: BP 117/61; PULSE 92; RESP 16; TEMP 36.6; O2SAT 100
--- NOTE | 2022-01-09 14:54 | ED.GENADULT ---
HPI - General Adult General Chief complaint: Upper Respiratory Infection Stated complaint: uri Time Seen by Provider: 01/09/22 14:54 Source: patient Mode of arrival: ambulatory Limitations: no limitations History of Present Illness HPI narrative: 41-year-old female patient presents to the [facility] with complaints of cold symptoms x2 days. Patient states she recently had surgery on her right foot/ankle in November. Patient states she is also going through an RA flare up but is not currently on any medications for RA. Patient states she has been exposed to strep, influenza and COVID the past couple of days. Patient states she has been having a headache, congestion, cough and just overall not feeling well. 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 Related Data Home Medications Medication Instructions Recorded Confirmed gabapentin 600 mg tablet 600 mg PO TID 10/24/20 09/26/21 citalopram 20 mg tablet 20 mg PO DAILY 01/28/21 09/26/21 atorvastatin 40 mg tablet mg 01/09/22 dextroamphetamine-amphetamine 20 01/09/22 mg tablet diazepam 5 mg tablet mg 01/09/22 ergocalciferol (vitamin D2) 1,250 01/09/22 mcg (50,000 unit) capsule famotidine 40 mg tablet mg 01/09/22 folic acid 1 mg tablet 01/09/22 omeprazole 40 mg capsule,delayed mg 01/09/22 release ondansetron 4 mg disintegrating mg 01/09/22 tablet propranolol 40 mg tablet mg 01/09/22 trazodone 50 mg tablet mg 01/09/22 Allergies Allergy/AdvReac Type Severity Reaction Status Date / Time benzonatate Allergy Hives Verified 01/09/22 14:23 [From Germán Gorman] morphine AdvReac Mild NAUSEA AND Verified 01/09/22 14:23 VOMITING; SEVERE MIGRAINE NSAIDS (Non-Steroidal AdvReac Unknown Nausea and Verified 01/09/22 14:23 Anti-Inflamma Vomiting HAIR DYE Allergy Unknown Itching Uncoded 01/09/22 14:23 Review of Systems Review of Systems: CONSTITUTIONAL: Positive fever, chills, denies sweats. EYES: Denies visual changes, redness, or discharge. ENT: Positive rhinorrhea, congestion, denies sore throat, or otalgia. CARDIOVASCULAR: Denies chest pain, palpitations, or edema. RESPIRATORY: Positive cough, denies dyspnea. GASTROINTESTINAL: Denies abdominal pain, nausea, vomiting, or diarrhea. GENITOURINARY: Denies dysuria or hematuria. SKIN: Denies rash or itching. MUSCULOSKELETAL: Denies back pain, joint pain, or myalgia. NEUROLOGIC: Positive headache, numbness, or weakness. PSYCHIATRIC: Denies anxiety or depression. [facility] Past Medical History Medical History Chiari malformation Neck pain Rheumatoid arthritis Uterine cancer Surgical History Surgical History History of bilateral breast reduction surgery History of brain surgery Decompression surgery History of cholecystectomy History of hysterectomy Family History Family History Father Alive and well Mother Hypertension Heart disease Seizures Grandparent Family history of malignant neoplasm of cervix Father Patient's father is Mother Family history of epilepsy Social History Social History Smoking packs per day: 0.25 Smoking cigarettes per day: 5.0 Years smoked: 10 Smoking pack-years: 2.50 Smoking status: Light tobacco smoker Tobacco type: e-cigarettes/vaping Second hand tobacco smoke exposure: No Alcohol intake: current Substance use: current Substance use type: marijuana Additional occupation/education comments: Currently working from home scheduled to return next week per Yvonne Gender identity (if verbalized by the patient): Female Comments At the time of my signature I agree with nursing past medical history, surgical, social, and
--- NOTE | 2022-01-09 16:17 | PC.NURSE ---
upon dc pt requested [facility] for pharmacy instead of [facility] and was called in by this rn. alexis at pharmacy stated 16oz of promethazine is not available and cat greenfield stated 8 oz promethazine is ok.
== END 2022-01-09 15:46 | disposition home or self-care (01) ==
PROVIDERS: Emergency Provider Nurse Practitioner Family
DX: J06.9 Acute upper respiratory infection, unspecified (principal); Z20.822 Contact with and (suspected) exposure to COVID-19; M06.9 Rheumatoid arthritis, unspecified; Z85.42 Personal history of malignant neoplasm of other parts of uterus
CPT/HCPCS: 87081; 87426; 87804; 87880; 99213; C9803; G0463

== ENCOUNTER 2022-05-08 18:20 | Emergency (ER) | payer MEDICAID, SELFPAY ==
--- NOTE | ~2022-05-08 | XR_ITS ---
EXAM: XR ankle RT min 3V DATE: 05/08/2022 18:50 HISTORY: pt heard a pop-pain SURG NOV 2021 NON INJ TODAY . COMPARISON: 07/22/2019. FINDINGS: Cannulated screws fix an ununited medial malleolar fracture into anatomic alignment. No alberto dware fracture or perihardware lucency. Normal mineralization. No fracture or dislocation. Moderate d egenerative change at the tibiotalar joint. Large degenerative subchondral cyst versus osteochondral defect in the medial talus. No erosion or periosteal change. Soft tissues within normal limits. IMPRESSION: No acute osseous finding in the right ankle. No radiographic evidence of hardware-related complication. Reviewed, dictated and finalized at location K. IMPRESSION: No acute osseous finding in the right ankle. No radiographic eviden ce of hardware-related complication.
--- NOTE | ~2022-05-08 | XR_ITS ---
EXAM: XR foot RT 2V DATE: 05/08/2022 19:19 HISTORY: right calcaneus ttp . COMPARISON: None available. FINDINGS: Normal mineralization. No fracture or dislocation. No lytic or blastic lesion. Moderate ching llux valgus. Moderate degenerative changes in the tibiotalar joint. Intact hardware fixating a nonuni antoinette medial malleolus fracture into anatomic alignment. Minimal Achilles enthesopathy. Pes planus. No erosion or periosteal change. Soft tissues within normal limits. IMPRESSION: No acute osseous finding in the right foot. Reviewed, dictated and finalized at location K.
[2022-05-08 18:22] VITALS: BP 145/95; PULSE 115; RESP 20; TEMP 36.9; O2SAT 100
--- NOTE | 2022-05-08 19:04 | ED.GENADULT ---
HPI - General Adult General Chief complaint: Extremity Injury, Lower <Mike Parmar PA-C - Last Filed: 05/09/22 05:09> Stated complaint: ankle pain <Mike Parmar PA-C - Last Filed: 05/09/22 05:09> Time Seen by Provider: 05/08/22 18:38 <Mike Parmar PA-C - Last Filed: 05/09/22 05:09> Source: patient <Mike Parmar PA-C - Last Filed: 05/09/22 05:09> Mode of arrival: ambulatory <STEPHEN Claudio Last Filed: 05/09/22 05:09> Limitations: no limitations <Mike Parmar PA-C - Last Filed: 05/09/22 05:09> History of Present Illness HPI narrative: This is a 42-year-old female with PMH of rheumatoid arthritis who presents to the ED with chief complaint of right ankle pain after stepping on it wrong today while taking something out to her car. She states she rolled the ankle and felt a pop. She now has pain in the lateral ankle as well as the lateral foot and posterior foot and posterior ankle. History of internal fixation for the right ankle done on 11/30/2021. She has been told she needs an ankle replacement but they are trying to hold off on doing this. Denies any further site of pain or injury. <Mike Parmar PA-C - Last Filed: 05/09/22 05:09> Related Data Home medications: Home Medications Medication Instructions Recorded Confirmed gabapentin 600 mg tablet 600 mg PO TID 10/24/20 09/26/21 citalopram 20 mg tablet 20 mg PO DAILY 01/28/21 09/26/21 atorvastatin 40 mg tablet mg 01/09/22 dextroamphetamine-amphetamine 20 01/09/22 mg tablet diazepam 5 mg tablet mg 01/09/22 ergocalciferol (vitamin D2) 1,250 01/09/22 mcg (50,000 unit) capsule famotidine 40 mg tablet mg 01/09/22 folic acid 1 mg tablet 01/09/22 omeprazole 40 mg capsule,delayed mg 01/09/22 release ondansetron 4 mg disintegrating mg 01/09/22 tablet propranolol 40 mg tablet mg 01/09/22 trazodone 50 mg tablet mg 01/09/22 <Mike Parmar PA-C - Last Filed: 05/09/22 05:09> Allergies/adverse reactions: Allergies Allergy/AdvReac Type Severity Reaction Status Date / Time benzonatate Allergy Hives Verified 05/08/22 18:38 [From Germán Gorman] morphine AdvReac Mild NAUSEA AND Verified 05/08/22 18:38 VOMITING; SEVERE MIGRAINE NSAIDS (Non-Steroidal AdvReac Unknown Nausea and Verified 05/08/22 18:38 Anti-Inflamma Vomiting HAIR DYE Allergy Unknown Itching Uncoded 05/08/22 18:38 <Mike Parmar PA-C - Last Filed: 05/09/22 05:09> Review of Systems Review of Systems: CONSTITUTIONAL: Denies fever, chills, or sweats. SKIN: Denies rash or itching. MUSCULOSKELETAL: Endorses right ankle pain and right foot pain. Denies back pain, other joint pain, or myalgia. NEUROLOGIC: Denies headache, numbness, dizziness, or weakness. PSYCHIATRIC: Denies anxiety or depression. <Mike Parmar PA-C - Last Filed: 05/09/22 05:09> [facility] Past Medical History Medical History: Medical History Chiari malformation Neck pain Rheumatoid arthritis Uterine cancer <Mike Parmar PA-C - Last Filed: 05/09/22 05:09> Surgical History Surgical History: Surgical History History of bilateral breast reduction surgery History of brain surgery Decompression surgery History of cholecystectomy History of hysterectomy <STEPHEN Claudio Last Filed: 05/09/22 05:09> Family History Family History: Family History Father Alive and well Mother Hypertension Heart disease Seizures Grandparent Family history of malignant neoplasm of cervix Father Patient's father is Mother Family history of epilepsy <Mike Parmar PA-C - Last Filed: 05/09/22 05:09> Social History Social History: Social History Smoking packs per day: 0.
[2022-05-08] MEDS: HYDROcodone/acetaminophen (*CRX) 7.5-325 MG TABLET 1 TAB PO (19:09)
[2022-05-08 20:29] VITALS: BP 140/79; PULSE 95; RESP 16; O2SAT 99
== END 2022-05-08 20:37 | disposition home or self-care (01) ==
PROVIDERS: Emergency Provider Physician Assistant
DX: M25.571 Pain in right ankle and joints of right foot (principal); M06.9 Rheumatoid arthritis, unspecified; F17.290 Nicotine dependence, other tobacco product, uncomplicated
CPT/HCPCS: 73610; 73620; 99284; A9270

== ENCOUNTER 2022-05-10 19:17 | Emergency (ER) | payer MEDICAID, SELFPAY ==
--- NOTE | 2022-05-10 19:40 | PC.NURSE ---
called multiple times for triage, not in lobby
== END 2022-05-10 20:05 | disposition left against medical advice (07) ==
LOC: ANHED 19:46
DX: Z53.21 Procedure and treatment not carried out due to patient leaving prior to being seen by health care provider (principal)
CPT/HCPCS: 99199

== ENCOUNTER 2023-12-12 15:58 | Emergency (ER) | payer OTHER, SELFPAY ==
--- NOTE | ~2023-12-12 | XR_ITS ---
EXAMINATION: XR chest 2V 12/12/2023 16:58 INDICATION: Cough PROCEDURE: 2 view chest COMPARISON: 01/28/2021 FINDINGS: The lungs are clear. The cardiomediastinal silhouette is within normal limits. There are no pleural effusions. There is no pneumothorax suspected. IMPRESSION: 1: NO ACUTE CARDIOPULMONARY DISEASE. Reviewed, dictated and finalized at location B.
[2023-12-12 16:20] VITALS: BP 136/82; PULSE 99; RESP 19; TEMP 36.9; O2SAT 97
--- NOTE | 2023-12-12 16:41 | ED.UPPEXIN ---
HPI - Extremity Injury (Upper) General Chief Complaint: Upper Respiratory Infection Stated Complaint: Left Shoulder Pain Source: patient and RN notes reviewed Mode of arrival: ambulatory Limitations: no limitations Related Data Home Medications Medication Instructions Recorded Confirmed clotrimazole 10 mg elsie mg 12/12/23 dextroamphetamine-amphetamine 30 12/12/23 mg tablet diazepam 5 mg tablet mg 12/12/23 doxepin 10 mg capsule mg 12/12/23 famotidine 40 mg tablet mg 12/12/23 gabapentin 600 mg tablet mg 12/12/23 hydroxyzine HCl 25 mg tablet mg 12/12/23 omeprazole 40 mg capsule,delayed mg 12/12/23 release ondansetron HCl 4 mg tablet mg 12/12/23 prednisone 20 mg tablet mg 12/12/23 propranolol 40 mg tablet mg 12/12/23 Allergies Allergy/AdvReac Type Severity Reaction Status Date / Time benzonatate Allergy Hives Verified 12/12/23 16:33 [From Germán Gorman] morphine AdvReac Mild NAUSEA AND Verified 12/12/23 16:33 VOMITING; SEVERE MIGRAINE NSAIDS (Non-Steroidal AdvReac Unknown Nausea and Verified 12/12/23 16:33 Anti-Inflamma Vomiting HAIR DYE Allergy Unknown Itching Uncoded 12/12/23 16:33 Review of Systems Review of Systems: CONSTITUTIONAL: Denies malaise, chills, sweats, or fever. CARDIOVASCULAR: Denies chest pain, palpitations, or edema. RESPIRATORY: Denies cough or dyspnea. SKIN: Denies rash or itching, bruising, redness, swelling. MUSCULOSKELETAL: Reports NEUROLOGIC: Denies numbness, weakness All systems reviewed & are unremarkable except as noted in HPI and below PMFSH Past Medical History Medical History Chiari malformation Neck pain Rheumatoid arthritis Uterine cancer Surgical History Surgical History History of bilateral breast reduction surgery History of brain surgery Decompression surgery History of cholecystectomy History of hysterectomy Family History Family History Father Alive and well Mother Hypertension Heart disease Seizures Grandparent Family history of malignant neoplasm of cervix Father Patient's father is Mother Family history of epilepsy Social History Social History Smoking packs per day: 0.25 Smoking cigarettes per day: 5.0 Years smoked: 10 Smoking pack-years: 2.50 Smoking status: Light tobacco smoker Tobacco type: e-cigarettes/vaping Second hand tobacco smoke exposure: No Alcohol intake: current Substance use: current Substance use type: marijuana Living arrangements: with family Occupation/Education: occupation Additional occupation/education comments: Currently working from home scheduled to return next week per Yvonne Gender identity (if verbalized by the patient): Female Comments At time of signature, agree with nursing past medical, surgical, social and family history. There is no relevant family history pertinent to the presenting complaint Exam Narrative: GENERAL: Well-appearing, well-nourished, and in no acute distress. HEAD: Normocephalic, atraumatic. EYES: PERRLA, conjunctivae clear NECK: Supple. CHEST: Speaks in full sentences. No respiratory distress. HEART: Regular rate and rhythm. Normal and equal peripheral pulses. EXTREMITIES: [Xxx] has normal strength and sensation, normal range of motion. No edema or ecchymosis. 5/5 strength with [xxx] flexion and extension. Normal sensation with sensitivity to light touch and pain. No point tenderness. No open wounds, no skin tenting, no devitalized tissue or atrophy, no trophic changes, no obvious deformity, alignment normal, nearby joints and structures intact. Distal pulses palpable and equal bilaterally, skin warm, dry, pink. Capillary refill less than 3 seconds. SKIN: Warm, dry, no rash. NEURO:
--- NOTE | 2023-12-12 16:44 | ED.URI ---
HPI - URI/Sore Throat General Chief Complaint: Upper Respiratory Infection Stated Complaint: Left Shoulder Pain Time Seen by Provider: 12/12/23 17:20 Mode of arrival: ambulatory Limitations: no limitations History of Present Illness HPI Narrative: 43-year-old female presents with concern for left chest wall and shoulder pain. 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 She was working with a car door that was not operating correctly a few days ago when she suddenly started having pain in her left shoulder and left chest wall. She reports pain worsens with certain movements, deep breathing, coughing. She denies shortness of breath. She reports cough MD elicited complaint: other (Chest wall pain) Related Data Home Medications Medication Instructions Recorded Confirmed clotrimazole 10 mg elsie mg 12/12/23 dextroamphetamine-amphetamine 30 12/12/23 mg tablet diazepam 5 mg tablet mg 12/12/23 doxepin 10 mg capsule mg 12/12/23 famotidine 40 mg tablet mg 12/12/23 gabapentin 600 mg tablet mg 12/12/23 hydroxyzine HCl 25 mg tablet mg 12/12/23 omeprazole 40 mg capsule,delayed mg 12/12/23 release ondansetron HCl 4 mg tablet mg 12/12/23 prednisone 20 mg tablet mg 12/12/23 propranolol 40 mg tablet mg 12/12/23 Allergies Allergy/AdvReac Type Severity Reaction Status Date / Time benzonatate Allergy Hives Verified 12/12/23 16:33 [From Germán Gorman] morphine AdvReac Mild NAUSEA AND Verified 12/12/23 16:33 VOMITING; SEVERE MIGRAINE NSAIDS (Non-Steroidal AdvReac Unknown Nausea and Verified 12/12/23 16:33 Anti-Inflamma Vomiting HAIR DYE Allergy Unknown Itching Uncoded 12/12/23 16:33 Review of Systems Review of Systems: CONSTITUTIONAL: Denies malaise, chills, sweats, or fever. EYES: Denies visual changes, redness, or discharge. ENT: Denies rhinorrhea, congestion, sinus pain, otalgia or sore throat. CARDIOVASCULAR: Reports chest wall pain. Denies palpitations or edema. RESPIRATORY: Reports occasion cough. Denies dyspnea. SKIN: Denies rash or itching, bruising, redness. MUSCULOSKELETAL: Reports left shoulder pain All systems reviewed & are unremarkable except as noted in HPI and below PMFSH Past Medical History Medical History Chiari malformation Neck pain Rheumatoid arthritis Uterine cancer Surgical History Surgical History History of bilateral breast reduction surgery History of brain surgery Decompression surgery History of cholecystectomy History of hysterectomy Family History Family History Father Alive and well Mother Hypertension Heart disease Seizures Grandparent Family history of malignant neoplasm of cervix Father Patient's father is Mother Family history of epilepsy Social History Social History Smoking packs per day: 0.25 Smoking cigarettes per day: 5.0 Years smoked: 10 Smoking pack-years: 2.50 Smoking status: Light tobacco smoker Tobacco type: e-cigarettes/vaping Second hand tobacco smoke exposure: No Alcohol intake: current Substance use: current Substance use type: marijuana Living arrangements: with family Occupation/Education: occupation Additional occupation/education comments: Currently working from home scheduled to return next week per Yvonne Gender identity (if verbalized by the patient): Female Comments At time of signature, agree with nursing past medical, surgical, social and family history. There is no relevant family history pertinent to the presenting complaint Exam Narrative: GENERAL: Well-appearing, well-nourished, and in no acute distress. HEAD: Normocephalic, atraumatic. EYES: PERRLA, sclera clear, and EOM
--- NOTE | 2023-12-12 17:29 | ECG_ITS ---
Test Date: 2023-12-12 17:39:58 Measurements Intervals [place] Rate: 83 P: 34 ME: 138 QRS: 16 QRSD: 76 T: 7 QT: 342 QTc: 404 Interpretive Statements SINUS RHYTHM No previous ECG available for comparison Electronically Signed On 12-13-2023 09:38:30 CDT by Josefina Malik M.D.
== END 2023-12-12 18:00 | disposition home or self-care (01) ==
PROVIDERS: Emergency Provider Nurse Practitioner
DX: R07.89 Other chest pain (principal); F17.290 Nicotine dependence, other tobacco product, uncomplicated; F12.90 Cannabis use, unspecified, uncomplicated; M06.9 Rheumatoid arthritis, unspecified; Z85.42 Personal history of malignant neoplasm of other parts of uterus
CPT/HCPCS: 71046; 93005; 99213; G0463

== ENCOUNTER 2024-05-30 15:35 | Emergency (ER) | payer OTHER, SELFPAY ==
[2024-05-30 15:48] VITALS: BP 129/79; PULSE 115; RESP 16; TEMP 36.8; O2SAT 98
--- NOTE | 2024-05-30 16:05 | ED_ITS ---
HPI - Eye Problem General Chief complaint: Eye Problems Stated complaint: left upper eyelid swollen,eye watering Time Seen by Provider: 05/30/24 16:06 Source: patient and RN notes reviewed Mode of arrival: ambulatory Limitations: no limitations History of Present Illness HPI Narrative: 44-year-old female with history of rheumatoid arthritis presents with concern for pain pressure behind her left eye. She reports eyelid swelling and drainage from the eye. She reports symptoms started today, she says she had had a ?pimple? on that I area that was gone today but swelling and pain and pressure started MD chief complaint: eye pain Related Data Home Medications ?Medication ?Instructions ?Recorded ?Confirmed ?Last Taken ?Type dextroamphetamine-amphetamine 30 30 mg PO DAILY 12/12/23 05/30/24 Unknown History mg tablet gabapentin 600 mg tablet 600 mg PO DAILY 12/12/23 05/30/24 Unknown History hydroxyzine HCl 25 mg tablet 25 mg PO DAILY 12/12/23 05/30/24 Unknown History omeprazole 40 mg capsule,delayed 40 mg PO DAILY 12/12/23 05/30/24 Unknown History release diazepam 5 mg tablet (Valium) 5 mg PO TID PRN anxiety 04/02/24 05/30/24 Unknown History methotrexate (PF) 25 mg/0.5 mL 25 mg subcut WEEKLY 04/02/24 05/30/24 Unknown History subcutaneous auto-injector doxepin 10 mg capsule 10 mg PO HS 05/30/24 05/30/24 Unknown History famotidine 40 mg tablet 40 mg PO DAILY 05/30/24 05/30/24 Unknown History folic acid 1 mg tablet 1 mg PO DAILY 05/30/24 05/30/24 Unknown History lidocaine 5 % topical patch patch topical Q24H 05/30/24 Unknown History tofacitinib 11 mg tablet,extended 11 mg PO Q24H 05/30/24 05/30/24 Unknown History release 24 hr (Xeljanz XR) Allergies Allergy/AdvReac Type Severity Reaction Status Date / Time benzonatate (From Tessalon Allergy Hives Verified 05/30/24 15:52 Perles) morphine AdvReac Mild NAUSEA AND Verified 05/30/24 15:52 VOMITING; SEVERE MIGRAINE NSAIDS (Non-Steroidal AdvReac Unknown Nausea and Verified 05/30/24 15:52 Anti-Inflamma Vomiting HAIR DYE Allergy Unknown Itching Uncoded 05/30/24 15:52 Review of Systems Review of Systems: CONSTITUTIONAL: Denies malaise, chills, sweats, or fever. EYES: Denies visual changes. Reports left-sided eye pain, pressure behind her eye, temporal pain and upper and lower eyelid swelling. She reports watery drainage from the eye. ENT: Denies rhinorrhea, congestion, sinus pain, otalgia or sore throat. SKIN: Denies rash or itching. NEUROLOGIC: Denies numbness, weakness, or headache. PSYCHIATRIC: Denies anxiety or depression. All systems reviewed & are unremarkable except as noted in HPI and below PMFSH Past Medical History Medical History (Updated 05/30/24 @ 16:21 by Nhi Philip NP) GERD (gastroesophageal reflux disease) Neck pain Rheumatoid arthritis Uterine cancer Chiari malformation Surgical History Surgical History (Updated 04/02/24 @ 16:33 by Mason Pedraza MD) History of cholecystectomy History of bilateral breast reduction surgery History of hysterectomy History of brain surgery Decompression surgery Family History Family History Father Alive and well Mother Hypertension Heart disease Seizures Grandparent Family history of malignant neoplasm of cervix Father Patient's father is Mother Family history of epilepsy Social History Social History (Updated 04/02/24 @ 14:59 by Natalie Man) Smoking packs per day: 0.25 Smoking cigarettes per day: 5.0 Years smoked: 10 Smoking pack-years: 2.50 Smoking status: Light tobacco smoker Tobacco type: e-cigarettes/vaping Second hand tobacco smoke exposure: No Alcohol intake: current Substance use: current Substance use type: marijuana Do You Feel Safe in your Home?: Yes Lack of Transportation: YES Lack of Food: Sometimes True Current Housing: I Have Housing Concerned About Future Housing: No Difficulty Paying Gas/Electric Bills: YES Difficulty Paying for Meds: YES Currently Unemployed: No Education: Associate Degree Difficulty w/ Childcare or Family Care: No Living arrangements: with family Occupation/Education: occupation Additional occupation/education comments: Currently working from home scheduled to return next week per Yvonne Gender identity (if verbalized by the patient): Female Comments At time of signature, agree with nursing past medical, surgical, social and family history. There is no relevant family history pertinent to the presenting complaint Exam Narrative: GENERAL: Well-appearing, well-nourished, and in no acute distress. HEAD: Normocephalic, atraumatic. EYES: PERRLA and EOMI. No nystagmus. Left conjunctivae and sclera injected with drainage noted. No foreign bodies noted on visual inspection. Upper and lower eyelid edematous, tender, mild edema noted to the left baptism ENT: Nares clear, turbinates pink, no rhinorrhea or epistaxis. Mucous membranes moist. TM pearly ross with sharp light reflex bilaterally; no tragal tenderness. NECK: Supple. CHEST: No respiratory distress. Speaks in full sentences. HEART: Regular rate and rhythm. SKIN: Warm, dry, no visible rash. NEURO: Alert and oriented x3. PSYCH: Normal mood and affect Course Course Emergency Course: Patient is aware of, understands and agrees to be transferred to the emergency room. Patient prefers to go at [facility], I explained the patient they do not have Ophthalmology and if she has any need for ophthalmology should have to be transferred to another hospital in may have a long wait. She expresses understanding and still wishes to go to [facility]. Portions of this record may have been created with voice recognition software Level of Care: Express Care Visit Vital Signs Vital signs: Vital Signs Temperature 98.2 F 05/30/24 15:48 Pulse Rate 115 H 05/30/24 15:48 Respiratory Rate 16 05/30/24 15:48 Blood Pressure 129/79 05/30/24 15:48 Pulse Oximetry 98 05/30/24 15:48 Oxygen Delivery Room Air 05/30/24 15:48 Temperature 98.2 F 05/30/24 15:48 Pulse Rate 115 H 05/30/24 15:48 Respiratory Rate 16 05/30/24 15:48 Blood Pressure 129/79 05/30/24 15:48 Pulse Oximetry 98 05/30/24 15:48 Oxygen Delivery Room Air 05/30/24 15:48 Reviewed. Transfer Transfered to: [facility] Transportation: Other (Private vehicle, being driven by someone else) Transfer rationale: Pain and pressure behind the eye Accepting physician: [facility] MDM - Eye Problem MDM Narrative Medical decision making narrative: Consideration of the following conditions may be warranted for the presenting problem, they are not final diagnoses: Bacterial conjunctivitis, allergic conjunctivitis, viral conjunctivitis, foreign body, blepharitis, chalazion, hordeolum, corneal abrasion, preseptal cellulitis, orbital cellulitis. No evidence of proptosis, ophthalmoplegia, vision loss, pain with eye movement. Critical Care Time Critical Care Time Critical Care Time: No Discharge Plan Discharge Clinical Impression: Swelling of eyelid Patient Disposition: Acute Care Hospital Condition: Stable Patient Language: Tanzanian Prescriptions: No Action gabapentin 600 mg tablet 600 mg PO DAILY omeprazole 40 mg capsule,delayed release(DR/EC) 40 mg PO DAILY dextroamphetamine-amphetamine 30 mg tablet 30 mg PO DAILY hydroxyzine HCl 25 mg tablet 25 mg PO DAILY cyclobenzaprine 10 mg tablet 10 mg PO TID PRN (Reason: muscle spasm) Qty: 20 0RF doxepin 10 mg capsule 10 mg PO HS famotidine 40 mg tablet 40 mg PO DAILY folic acid 1 mg tablet 1 mg PO DAILY lidocaine 5 % adhesive patch,medicated topical Q24H Xeljanz XR 11 mg tablet extended release 24 hr 11 mg PO Q24H methotrexate (PF) 25 mg/0.5 mL auto-injector 25 mg subcut WEEKLY diazepam [Valium] 5 mg tablet 5 mg PO TID PRN (Reason: anxiety) Follow-up/Referrals: PHYSICIAN NOT ON STAFF,NONSTAFF [Primary Care Provider] - Time of Disposition: 16:21
== END 2024-05-30 16:15 | disposition short-term general hospital (02) ==
PROVIDERS: Emergency Provider Nurse Practitioner
DX: H02.844 Edema of left upper eyelid (principal); H02.845 Edema of left lower eyelid; F17.290 Nicotine dependence, other tobacco product, uncomplicated; F12.90 Cannabis use, unspecified, uncomplicated; K21.9 Gastro-esophageal reflux disease without esophagitis; M06.9 Rheumatoid arthritis, unspecified; Q07.9 Congenital malformation of nervous system, unspecified
CPT/HCPCS: 99212; G0463

== ENCOUNTER 2024-05-30 16:40 | Emergency (ER) | payer OTHER, SELFPAY ==
--- NOTE | ~2024-05-30 | CT_ITS ---
CT orbit BI w con Ordering provider: Susy Rubi PA-C History: . left eye edema . Comparison: None. Technique: Thin slice axial CT of the orbits was performed without contrast. Coronal reformatted imag es were also obtained. Radiation reduction technique utilized.The dose-length product was 174.33 mGy- cm. FINDINGS: PARANASAL SINUSES: Well aerated. BONES: No facial fracture. ORBITS AND SUPERFICIAL SOFT TISSUES: The optic globes and orbits are normal. Seen with slight enlargement is seen in the left lacrimal gland which may indicate inflammatory oneill es. Follow-up advised. Minimal fat stranding in the left lower lid is noted. Otherwise, The superfici al soft tissues are normal. VISUALIZED MASTOIDS: Well aerated. IMPRESSION: NO ORBITAL FRACTURE IDENTIFIED. Slightly enlarged enhancing left lacrimal gland which may be due to inflammatory changes. Adjacent fa t stranding in the lower lid is noted. Clinical correlation and follow-up advised. Reviewed, dictated and finalized at location A. IMPRESSION: NO ORBITAL FRACTURE IDENTIFIED. Slightly enlarged enhancing left lacrimal gland which may be due to inflammator y changes. Adjacent fat stranding in the lower lid is noted. Clinical correlati on and follow-up advised.
[2024-05-30 16:58] VITALS: BP 132/77; PULSE 109; RESP 16; TEMP 36.4; O2SAT 99
--- OUTSIDE RECORDS SUMMARY | 2024-05-30 17:10 | XMS_ITS | Encounter Summary ---
Author Organization [facility] Address [address] [place] [address] Care Team Providers Care Billet Recorder Name Role Phone Vinod Zuñiga MD Unavailable [phone] Santos Nguyen MD Primary Care Provider [phone] Ulysses Higgins MD Unavailable [phone] Jennifer Patel RN Unavailable [phone] Reji Mancuso [facility] Unavailable [phone] Reason for Visit * Reason Onset Date Comments MEDICATION REFILL 05/05/2023 Encounter Details Date Type Department Care Team (Late st Contact Info) Description 05/05/2023 Refill [facility] Medical [facility] - Rheumatology [address], [address] [place] [address] José Miguel Singleton DO [address] [place] [address] MEDICATION REFILL Social History Tobacco Use Types Packs/Day Years Used Date Smoking Tobacco: Former Cigarettes Q uit: 02/21/2015 Smokeless Tobacco: Never Alcohol Use Standard Drinks/Week Comments Not Currently 0 (1 standard drink = 0.6 oz pur e alcohol) socially AUDIT-C Answer Date Recorded Frequency of Alcohol Consumption Not on file 02/03/2023 Q2: How many drinks containi ng alcohol do you have on a typical day when you are drinking? Patient does not drink Q3: How often do you have si x or more drinks on one occasion? Never 02/03/2023 Overall Financial Resource Strain (CARDIA) Answe r Date Recorded How hard is it for you to pa y for the very basics like food, housing, medical care, and heating? Not hard at all 02/02/2023 PHQ-2 Answer Date Recorded Patient Health Questionnaire-2 Score 0 03/18/2023 [facility] [place] [facility] Occup[facility] - Occupational Stress Questionnaire Answer Date Recorded Do you feel stress - tense, restless, nervous, or anxious, or unable to sleep at night because your mind is troubled all the time - these days? Not at all 02/02/2023 Hunger Vital Sign Answer Date Recorded Within the past 12 months, y ou worried that your food would run out before you got the money to buy more. Never true 02/03/20 23 Within the past 12 months, t he food you bought just didn't last and you didn't have money to get more. Never true 02/02/2023 PRAPARE - Transportation Answer Date Re corded In the past 12 months, has l ack of transportation kept you from medical appointments or from getting medications? No 01/21 In the past 12 months, has l ack of transportation kept you from meetings, work, or from getting things needed for daily living? No 02/02/2023 Housing Stability Vital Sign Answer Vidal e Recorded In the last 12 months, was t here a time when you were not able to pay the mortgage or rent on time? No 02/02/2023 In the last 12 months, how many places have you lived? 1 02/02/2023 In the last 12 months, was t here a time when you did not have a steady place to sleep or slept in a halfway (including now)? No 02/02/2023 Sex and Gender Information Value Date Recorded Sex Assigned at Female 09/23/2021 3:30 PM CDT Gender Identity Female 09/23/2021 3:30 PM CDT Sexual Orientation Straight 09/23/2021 3: 30 PM CDT documented as of this encounter Functional Status Functional Status Response Date of Assess ment Is person deaf or have serious hearing difficult y? No 03/17/2023 Is person blind or have serious difficulty seein g? No 03/17/2023 Does person have serious dif ficulty walking/climbing stairs? No 03/17/2023 Does person have difficulty dressing/bathing? No 03/17/2023 Does person have difficulty doing errands alone? No 03/17/2023 Cognitive Status Response Date of Assessm ent Does person have difficulty concentrating/remembering/making decisions? No 03/17/2023 documented as of this encounter Miscellaneous Notes * Telephone Encounter - Jose Elias Tang RN - 05/05/2023 3:27 PM CDT Patient chart, labs and allergies reviewed and medication sent to provider due to patient seeing Dr. Barnett currently. Refills initially denied as patient is no longer seeing Dr. Singleton. NON-BIOLOGIC REFILL REQUEST Last OV: 05/04/2023 (Dr. Barnett) Next Appointment: 06/15/2023 (Dr. Barnett) Last Fill: Zofran- 10/26/2022 Albuterol- 09/29/2022 Recent Labs Component Name 05/04/23 1006 03/28/23 1349 03/16/23 0625 WBC 8.5 10.7 11.8* HGB 11.8 10.1* 11.5* PLTCOUNT 237 279 236 MCV 111* 113.2* 100.6* Recent Labs Component Name 05/05/23 1237 03/16/23 0624 03/15/23 0538 08/26/22 1555 08/25/22 1623 08/05/22 0703 08/04/22 0552 CREATININE 0.63 0.81 0.64 - 0.83 0.63 0.69 BUN 13 15 13 - 7 15 11 SODIUM - - - - 135* 139 138 POTASSIUM 3.7 4.2 3.7 - 4.0 3.8 3.2* - = values in this interval not displayed. Recent Labs Component Name 05/05/23 1237 03/16/23 0624 03/15/23 0538 EGFR >90 >90 >90 Recent Labs Component Name 05/05/23 1237 03/16/23 0624 03/15/23 0538 08/26/22 1555 08/25/22 1623 08/03/22 1741 08/03/22 1741 11/18/21 1419 AST 20 38* 31 - 16 - 17 20 ALT 20 58* 49 - 11 - 17 27 ALKPHOS 56 <90 51 - 53 - 76 89 TBIL - - - - 0.5 - 0.3 0.4 - = values in this interval not displayed. No results for input(s): [id number] in the last 13879 hours. No results for input(s): URICACID in the last 46997 hours. Last ESR: Recent Labs Component Name 08/04/22 1417 SEDRATE 5 Last 3 CRP: Recent Labs Component Name 03/09/23202512/17/22 1354 08/04/22 1417 CRP 0.5 <0.5 <0.20 documented in this encounter Plan of Treatment Upcoming Encounters Date Type Department Care Team (Late st Contact Info) Description 07/02/2024 5:30 PM CDT Appointment [facility] [address] [place] [id number] Karl Miller MD [address] [place] [address] [place] [address] documented as of this encounter Visit Diagnoses Diagnosis Relapsing polychondritis Other disorders of bone and cartilage Methotrexate, fpc, current use Encounter for long-term (current) use of other medications documented in this encounter Additional Health Concerns Infection Onset Date Last Indicated Resolved Time COVID-19 Under Investigation 12/16/2023 12/16/2023 12/16/2023 11:15 AM CDT documented as of this encounter Care Teams Billet Recorder Relationship Specialty Start Date End Date Santos Nguyen MD [address] [address] PCP - General 01/08/22 Vinod Zuñiga MD [address] [place] [address] Obstetrics and Gynecology 09/01/21 Ulysses Higgins MD [address] [place] [address] Orthopedic Surgery 05/10/22 Jennifer Patel, MARY [address] [place] [address] [employer] 12/20/23 02/10/24 Reji Mancuso LMSW Transition Advisor Care Management 02/17/24 02/21/24 documented as of this encounter
--- OUTSIDE RECORDS SUMMARY | 2024-05-30 17:10 | XMS_ITS | Patient Health Record ---
Author Organization Formerly [facility] Address [address] [place] [address] Care Team Providers Care Fabrication Inspector Name Role Phone Rufus Purdy Primary Care Provider Kimberlee Clark Unavailable [phone] Allergies No Known Allergies Results Component Value Reference Range Notes 12 Panel Urine Drug Screen Reviewed date:07/07/2023 04:57:50 PM Interpretation: Performing Lab: Notes/Report: THC pos ELIZABETH neg MOP (OPI) neg AMP pos MET neg BAR neg BZO pos MDMA neg MTD neg OXY neg PCP neg BUP neg Reason For Referral Reason Therapy - referral, client has multiple stressors and ongoing autoimmune disorder that affects her greatly. Diagnosis 1 ADHD (attention defi cit hyperactivity disorder), inattentive type (F90.0) Diagnosis 2 MELLISA (generalized anx iety disorder) (F41.1) Diagnosis 3 PTSD (post-traumatic stress disorder) (F43.10) Diagnosis 4 Fibromyalgia (M79.7) Referral Organization [facility] Referring Provider First Name Rufus Referring Provider Last Name Gurwinder Referring Provider Speciality Psychiatry Referred Provider Specialty Behavioral H [facility] Clinical Notes Unique Gomes 01/17/2024 01:40:59 PM NEWS WRITER > Normalizer spoke with Yvonne, designer writer discussed two options for services with Yvonne, Normalizer discussed her ability to see Yvonne short term (for about 6 sessions) for solution focused, brief intervention or Yvonne could utilize outpatient services. Yvonne was interested in outpatient services specifically, designer writer discussed the two-call process of calling any day to be opened up to preadmission and then to call back Tuesday or to get scheduled for a same day appointment, designer writer described this as an intake that would need to be completed before services could get scheduled. Normalizer will check back with Yvonne at a later point to see if she had been successful in connecting with those services.Mireya McKayla A 02/02/2024 11:42:55 AM > Open to tier due to being [facility], but has not called in for intake.Mireya McKayla A 02/28/2024 10:12:26 AM > called and left voicemail message regarding checking in to see how process is going to connect with OP services.Mireya McKayla A 03/20/2024 11:55:33 AM > Left VM letting client know she can call back for further assistance Referral Priority Routine Medications Medication SIG (Take, Route, Frequency, Duration) Notes Start Date End Date Status hydrOXYzine HCl 25 MG 1 tablet as needed for anxiety Orally Twice a day for 30 days 11/22/2022 Active diazePAM 5 MG 1.5 tablet Orally Tw ice a day as needed for anxiety. for 30 days 05/07/2024 Active Dapsone 100 MG 1 tablet Orally Once a day Active Propranolol HCl 40 MG 0.5 - 1 tablet Twice a day for 30 days As needed for anxiety and/or panic Active Doxepin HCl 10 MG 1 - 2 capsules at bedtime Orally Once a day for 30 days As needed for insomnia 07/07/2023 Active Amphetamine-Dextroamphetami ne 30 MG 1 tablet Orally Twice a day. Please fill on or after June 28, 2024. for 30 days 05/07/2024 Active Gabapentin 600 MG 1 tablet Orally Thre e times a day for 30 days 09/26/2023 Active Amphetamine-Dextroamphetami ne 30 MG 1 tablet Orally Twice a day for 30 days 05/07/2024 Active HYDROcodone-Acetaminophen 5-325 MG 1 tablet as needed Orally every 6 hrs Active Methotrexate 2.5 MG/ML as directed Orally weekly Active Amphetamine-Dextroamphetami ne 30 MG 1 tablet Orally Twice a day. Please fill on or after June 02, 2024. 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 Lives with male partner and her children and mother. Extensive trauma hx childhood to 30s. 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 Lives with male partner and her children and mother. Extensive trauma hx childhood to 30s. 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 Lives with male partner and her children and mother. Extensive trauma hx childhood to 30s. 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 Lives with male partner and her children and mother. Extensive trauma hx childhood to 30s. 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 Lives with male partner and her children and mother. Extensive trauma hx childhood to 30s. 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 Lives with male partner and her children and mother. Extensive trauma hx childhood to 30s. 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 Lives with male partner and her children and mother. Extensive trauma hx childhood to 30s. 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 Lives with male partner and her children and mother. Extensive trauma hx childhood to 30s. 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 Lives with male partner and her children and mother. Extensive trauma hx childhood to 30s. 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 Lives with male partner and her children and mother. Extensive trauma hx childhood to 30s. 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 Lives with male partner and her children and mother. Extensive trauma hx childhood to 30s. 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 Lives with male partner and her children and mother. Extensive trauma hx childhood to 30s. 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 Lives with male partner and her children and mother. Extensive trauma hx childhood to 30s. 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 Lives with male partner and her children and mother. Extensive trauma hx childhood to 30s. 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 Lives with male partner and her children and mother. Extensive trauma hx childhood to 30s. 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 Lives with male partner and her children and mother. Extensive trauma hx childhood to 30s. 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 Lives with male partner and her children and mother. Extensive trauma hx childhood to 30s. 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 Lives with male partner and her children and mother. Extensive trauma hx childhood to 30s. 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 Lives with male partner and her children and mother. Extensive trauma hx childhood to 30s. 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 Lives with male partner and her children and mother. Extensive trauma hx childhood to 30s. 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 Lives with male partner and her children and mother. Extensive trauma hx childhood to 30s. 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 Lives with male partner and her children and mother. Extensive trauma hx childhood to 30s. Problems Problem Type SNOMED Code ICD Code Onset Dates Problem Status W/U Status Risk Notes Problem Fibromyalgia (538452948) Fibromyalgia (M79.7) Active confirmed Problem Posttraumatic stress disorder (02506600) PTSD (post-traumatic stress disorder) (F43.10) Active confirmed Problem Attention deficit hyperactivity disorder, predominantly inattentive type (57868000) ADHD (attention deficit hyperactivity disorder), inattentive type (F90.0) Active confirmed Problem Generalized anxiety disorder (86302922) MELLISA (generalized anxiety disorder) (F41.1) Active confirmed Vital Signs Heart Rate 100 /min 07/07/2023 Respiratory Rate 16 /min 07/07/2023 Blood pressure diastolic 76 mm Hg 07/07/2023 Oximetry 98 % 07/07/2023 Height 65 in 07/07/2023 Blood pressure systolic 124 mm Hg 07/07/2023 Weight 179.4 lbs 07/07/2023 BMI 29.85 kg/m2 07/07/2023 Encounters Encounter Location Date Provider Diagnosis [address] [address] 07/07/2023 Rufus Purdy MELLISA (generalized anxiety disorder) F41.1 ; ADHD (attention deficit hyperactivity disorder), inattentive type F90.0 ; PTSD (post-traumatic stress disorder) F43.10 ; Fibromyalgia M79.7 and Medication monitoring encounter Z51.[address] [address] 09/26/2023 Rufus Purdy ADHD (attention deficit hyperactivity disorder), inattentive type F90.0 ; MELLISA (generalized anxiety disorder) F41.1 ; Fibromyalgia M79.7 and PTSD (post-traumatic stress disorder) F43.[address] [address] 01/04/2024 Rufus Purdy MELLISA (generalized anxiety disorder) F41.1 ; PTSD (post-traumatic stress disorder) F43.10 ; ADHD (attention deficit hyperactivity disorder), inattentive type F90.0 and Fibromyalgia M79.[address] [address] 03/06/2024 Rufus Purdy ADHD (attention deficit hyperactivity disorder), inattentive type F90.0 ; PTSD (post-traumatic stress disorder) F43.10 ; MELLISA (generalized anxiety disorder) F41.1 and Fibromyalgia M79.[address] [address] 05/07/2024 Rufus Purdy ADHD (attention deficit hyperactivity disorder), inattentive type F90.0 ; MELLISA (generalized anxiety disorder) F41.1 ; PTSD (post-traumatic stress disorder) F43.10 and Fibromyalgia M79.[address] [address] 06/22/2023 Rufus Purdy MELLISA (generalized anxiety disorder) F41.[address] [address] 08/11/2023 Rufus Purdy MELLISA (generalized anxiety disorder) F41.[address] [address] 09/05/2023 Rufus Purdy MELLISA (generalized anxiety disorder) F41.1 [facility] [address] [place] [address] 09/07/2023 Rufus Purdy ADHD (attention deficit hyperactivity disorder), inattentive type F90.[address] [address] 11/07/2023 Rufus Purdy Fibromyalgia M79.[address] [address] 11/28/2023 Rufus Purdy ADHD (attention deficit hyperactivity disorder), inattentive type F90.0 ; MELLISA (generalized anxiety disorder) F41.1 and Fibromyalgia M79.[address] [address] 12/29/2023 Kimberlee Clark ADHD (attention deficit hyperactivity disorder), inattentive type F90.0 ; Fibromyalgia M79.7 and MELLISA (generalized anxiety disorder) F41.1 [facility] [address], [place] [address] 01/17/2024 Rufus Purdy [facility] [address] [place] [address] 01/30/2024 Rufus Purdy [facility] [address] [place] [address] 03/05/2024 Rufus Purdy ADHD (attention deficit hyperactivity disorder), inattentive type F90.0 and Fibromyalgia M79.[address] [address] 04/02/2024 Rufus Purdy [address] [place] [address] 04/04/2024 Rufus Purdy ADHD (attention deficit hyperactivity disorder), inattentive type F90.0 [facility] [address] [place] [address] 05/02/2024 Rufus Purdy ADHD (attention deficit hyperactivity disorder), inattentive type F90.0 Assessments Encounter Date Diagnosis (ICD Code) Assessment Notes Treatment Notes Treatment Clinical Notes Section Notes 06/22/2023 MELLISA (generalized anxiety disorder) (ICD-10 - F41.1) 08/11/2023 MELLISA (generalized anxiety disorder) (ICD-10 - F41.1) 09/05/2023 MELLISA (generalized anxiety disorder) (ICD-10 - F41.1) 09/07/2023 ADHD (attention deficit hyperactivity disorder), inattentive type (ICD-10 - F90.0) 07/07/2023 ADHD (attention deficit hyperactivity disorder), inattentive type (ICD-10 - F90.0) Client filled gabapentin last month; unclear how as client had been switched to Lyrica. Client is agreeable to increase in Lyrica to see if helpful for pain (gabapentin again discontinued). Client aware that medications will treat symptoms only so much. Therapy has repeatedly been suggested and client has repeatedly declined. Client agreeable to trial of doxepin for sleep. Trazodone marginally helpful in past. Patient with very complex medical hx including rare autoimmune disorder and chiari malformation along with low resources base and high social determinants of health issues. No other treatment plan changes at this time. 07/07/2023 MELLISA (generalized anxiety disorder) (ICD-10 - F41.1) Client filled gabapentin last month; unclear how as client had been switched to Lyrica. Client is agreeable to increase in Lyrica to see if helpful for pain (gabapentin again discontinued). Client aware that medications will treat symptoms only so much. Therapy has repeatedly been suggested and client has repeatedly declined. Client agreeable to trial of doxepin for sleep. Trazodone marginally helpful in past. Patient with very complex medical hx including rare autoimmune disorder and chiari malformation along with low resources base and high social determinants of health issues. No other treatment plan changes at this time. 09/26/2023 ADHD (attention deficit hyperactivity disorder), inattentive type (ICD-10 - F90.0) 11/07/2023 Fibromyalgia (ICD-10 - M79.7) 11/28/2023 ADHD (attention deficit hyperactivity disorder), inattentive type (ICD-10 - F90.0) 12/29/2023 ADHD (attention deficit hyperactivity disorder), inattentive type (ICD-10 - F90.0) 01/04/2024 MELLISA (generalized anxiety disorder) (ICD-10 - F41.1) Client reffered to therapy. Encouraged client to also talk to team at [facility] to discuss if there is complex care therapist to help client decrease stress levels. Encourage client to f/u on pain management team as well. No changes to tx plan at this time in regard to medications. 03/05/2024 ADHD (attention deficit hyperactivity disorder), inattentive type (ICD-10 - F90.0) 03/06/2024 ADHD (attention deficit hyperactivity disorder), inattentive type (ICD-10 - F90.0) Client states she does not need any changes to her treatment plan at this time. That she feels her mental health plan is adequate. She is in constant contact with her tx team at [facility] and they are aware of her mental health medications per client. 04/04/2024 ADHD (attention deficit hyperactivity disorder), inattentive type (ICD-10 - F90.0) 05/02/2024 ADHD (attention deficit hyperactivity disorder), inattentive type (ICD-10 - F90.0) 05/07/2024 ADHD (attention deficit hyperactivity disorder), inattentive type (ICD-10 - F90.0) 05/07/2024 MELLISA (generalized anxiety disorder) (ICD-10 - F41.1) 07/07/2023 PTSD (post-traumatic stress disorder) (ICD-10 - F43.10) Client filled gabapentin last month; unclear how as client had been switched to Lyrica. Client is agreeable to increase in Lyrica to see if helpful for pain (gabapentin again discontinued). Client aware that medications will treat symptoms only so much. Therapy has repeatedly been suggested and client has repeatedly declined. Client agreeable to trial of doxepin for sleep. Trazodone marginally helpful in past. Patient with very complex medical hx including rare autoimmune disorder and chiari malformation along with low resources base and high social determinants of health issues. No other treatment plan changes at this time. 03/06/2024 PTSD (post-traumatic stress disorder) (ICD-10 - F43.10) Client states she does not need any changes to her treatment plan at this time. That she feels her mental health plan is adequate. She is in constant contact with her tx team at [facility] and they are aware of her mental health medications per client. 03/05/2024 Fibromyalgia (ICD-10 - M79.7) 01/04/2024 PTSD (post-traumatic stress disorder) (ICD-10 - F43.10) Client reffered to therapy. Encouraged client to also talk to team at [facility] to discuss if there is complex care therapist to help client decrease stress levels. Encourage client to f/u on pain management team as well. No changes to tx plan at this time in regard to medications. 11/28/2023 MELLISA (generalized anxiety disorder) (ICD-10 - F41.1) 12/29/2023 Fibromyalgia (ICD-10 - M79.7) 09/26/2023 MELLISA (generalized anxiety disorder) (ICD-10 - F41.1) 07/07/2023 Fibromyalgia (ICD-10 - M79.7) Client filled gabapentin last month; unclear how as client had been switched to Lyrica. Client is agreeable to increase in Lyrica to see if helpful for pain (gabapentin again discontinued). Client aware that medications will treat symptoms only so much. Therapy has repeatedly been suggested and client has repeatedly declined. Client agreeable to trial of doxepin for sleep. Trazodone marginally helpful in past. Patient with very complex medical hx including rare autoimmune disorder and chiari malformation along with low resources base and high social determinants of health issues. No other treatment plan changes at this time. 09/26/2023 Fibromyalgia (ICD-10 - M79.7) 11/28/2023 Fibromyalgia (ICD-10 - M79.7) 01/04/2024 ADHD (attention deficit hyperactivity disorder), inattentive type (ICD-10 - F90.0) Client reffered to therapy. Encouraged client to also talk to team at [facility] to discuss if there is complex care therapist to help client decrease stress levels. Encourage client to f/u on pain management team as well. No changes to tx plan at this time in regard to medications. 12/29/2023 MELLISA (generalized anxiety disorder) (ICD-10 - F41.1) 03/06/2024 MELLISA (generalized anxiety disorder) (ICD-10 - F41.1) Client states she does not need any changes to her treatment plan at this time. That she feels her mental health plan is adequate. She is in constant contact with her tx team at [facility] and they are aware of her mental health medications per client. 05/07/2024 PTSD (post-traumatic stress disorder) (ICD-10 - F43.10) 05/07/2024 Fibromyalgia (ICD-10 - M79.7) 03/06/2024 Fibromyalgia (ICD-10 - M79.7) Client states she does not need any changes to her treatment plan at this time. That she feels her mental health plan is adequate. She is in constant contact with her tx team at [facility] and they are aware of her mental health medications per client. 01/04/2024 Fibromyalgia (ICD-10 - M79.7) Client reffered to therapy. Encouraged client to also talk to team at [facility] to discuss if there is complex care therapist to help client decrease stress levels. Encourage client to f/u on pain management team as well. No changes to tx plan at this time in regard to medications. 09/26/2023 PTSD (post-traumatic stress disorder) (ICD-10 - F43.10) 07/07/2023 Medication monitoring encounter (ICD-10 - Z51.81) Client filled gabapentin last month; unclear how as client had been switched to Lyrica. Client is agreeable to increase in Lyrica to see if helpful for pain (gabapentin again discontinued). Client aware that medications will treat symptoms only so much. Therapy has repeatedly been suggested and client has repeatedly declined. Client agreeable to trial of doxepin for sleep. Trazodone marginally helpful in past. Patient with very complex medical hx including rare autoimmune disorder and chiari malformation along with low resources base and high social determinants of health issues. No other treatment plan changes at this time. [place]2023 [place]. Discussed sleep hygiene and caffeine intake with encouragement to limit electronic devices an hour before bed and to limit caffeine after 3:00pm. Exercise benefits for mood and health discussed. Psychoeducation regarding psychiatric illness provided. Client was educated about risks and benefits of medication, alternatives to medication, off label uses of medication, suicidal ideation with SSRIs, self-administratio n and compliance with medication along with how to safely store medication. Verbal informed consent obtained. Client agrees to return sooner if symptoms worsen or if suicidal or homicidal ideations occur. Client has the phone number to the 24-hour crisis line at [facility]. Questions addressed. Client verbalized understanding of all information and is agreeable to treatment plan. 01/04/2024 [place]. Discussed sleep hygiene and caffeine intake with encouragement to limit electronic devices an hour before bed and to limit caffeine after 3:00pm. Exercise benefits for mood and health discussed. Psychoeducation regarding psychiatric illness provided. Client was educated about risks and benefits of medication, alternatives to medication, off label uses of medication, suicidal ideation with SSRIs, self-administratio n and compliance with medication along with how to safely store medication. Verbal informed consent obtained. Client agrees to return sooner if symptoms worsen or if suicidal or homicidal ideations occur. Client has the phone number to the 24-hour crisis line at [facility]. Questions addressed. Client verbalized understanding of all information and is agreeable to treatment plan. Client reffered to therapy. Encouraged client to also talk to team at [facility] to discuss if there is complex care therapist to help client decrease stress levels. Encourage client to f/u on pain management team as well. No changes to tx plan at this time in regard to medications. 03/06/2024 [place]. Discussed sleep hygiene and caffeine intake with encouragement to limit electronic devices an hour before bed and to limit caffeine after 3:00pm. Exercise benefits for mood and health discussed. Psychoeducation regarding psychiatric illness provided. Client was educated about risks and benefits of medication, alternatives to medication, off label uses of medication, suicidal ideation with SSRIs, self-administratio n and compliance with medication along with how to safely store medication. Verbal informed consent obtained. Client agrees to return sooner if symptoms worsen or if suicidal or homicidal ideations occur. Client has the phone number to the 24-hour crisis line at [facility]. Questions addressed. Client verbalized understanding of all information and is agreeable to treatment plan. Client states she does not need any changes to her treatment plan at this time. That she feels her mental health plan is adequate. She is in constant contact with her tx team at [facility] and they are aware of her mental health medications per client. 05/07[facility]2024 [facility]. Discussed sleep hygiene and caffeine intake with encouragement to limit electronic devices an hour before bed and to limit caffeine after 3:00pm. Exercise benefits for mood and health discussed. Psychoeducation regarding psychiatric illness provided. Client was educated about risks and benefits of medication, alternatives to medication, off label uses of medication, suicidal ideation with SSRIs, self-administratio n and compliance with medication along with how to safely store medication. Verbal informed consent obtained. Client agrees to return sooner if symptoms worsen or if suicidal or homicidal ideations occur. Client has the phone number to the 24-hour crisis line at [facility]. Questions addressed. Client verbalized understanding of all information and is agreeable to treatment plan. Plan Of Treatment No Information Insurance Providers Payer Name Payer Address Payer Phone Subscriber Number Group Number Insured Name Patient Relationship to Insured Coverage Start Date Coverage End Date [facility] Att Claims Department [address] [place] [address] [phone] [id number] Yvonne Fonseca Self - patient is the insured 3 [address] [place] [address] [id number] Yvonne Fonseca Self - patient is the insured 3 [id number] [id number] Yvonne Fonseca Self - patient is the insured 3 [place] [facility] [address] [place] [address] [phone] [id number] Yvonne Fonseca Self - patient is the insured 3 Medical (General) History Medical History History ICD Code Chiari malformation Headaches Lower back pinched nerve Uterus cancer (no chemo, uterus removed) Surgical History Surgery Date(Month/Year) Hysterectomy 2005 Gall bladder removed ICP reduction surgery r/t chiari malform ation 2009 UPPER & LOWER UNDOSCOPY FOR CROHNS 09/09 21 BREAST MASS REMOVED 09/2021
--- OUTSIDE RECORDS SUMMARY | 2024-05-30 17:10 | XMS_ITS | Encounter Summary ---
Author Organization [facility] Address [address] [facility] [place] [address] Care Team Providers Care Look Out Tower Fire Watcher Name Role Phone Vinod Zuñiga MD Unavailable [phone] Santos Nguyen MD Primary Care Provider [phone] Ulysses Higgins MD Unavailable [phone] Reji Mancuso FLOAT PHLEBOTOMIST Unavailable [phone] Vero Ingram INSURANCE CLAIMS SPECIALIST Unavailable [phone] [place] FLOAT PHLEBOTOMIST Unavailable Brunilda Hoff INSURANCE CLAIMS SPECIALIST Unavailable [place] FLOAT PHLEBOTOMIST Unavailable Jennifer Patel RN Unavailable [phone] Reji Mancuso FLOAT PHLEBOTOMIST Unavailable [phone] Encounter Details Date Type Department Care Team (Late st Contact Info) Description 07/14/2022 Telephone [facility] - Endocrinology [address] [place] [address], [place] [address] Alejandro Layne MD [address] [place] [address] [place] [address] Social History Tobacco Use Types Packs/Day Years Used Date Smoking Tobacco: Former Cigarettes Q uit: 02/21/2015 Smokeless Tobacco: Never Alcohol Use Standard Drinks/Week Comments Yes 0 (1 standard drink = 0.6 oz pur e alcohol) socially PHQ-2 Answer Date Recorded PHQ2 TOTAL SCORE 2 11/18/2021 Sex and Gender Information Value Date Recorded Sex Assigned at Female 09/23/2021 3:30 PM CDT Gender Identity Female 09/23/2021 3:30 PM CDT Sexual Orientation Straight 09/23/2021 3: 30 PM CDT documented as of this encounter Miscellaneous Notes * Telephone Encounter - Jen Tinajero - 07/14/2022 10:21 AM CDT Current Provider name: Dr. Alejandro Layne Reason for call: Ms. Yvonne Fonseca has referral in [facility] for: E04.2 (ICD-10-CM) - Multiple thyroid nodules E03.9 (ICD-10-CM) - Hypothyroidism, unspecified type R63.4 (ICD-10-CM) - Weight loss, non-intentional MULTIPLE THYROID NODULES. She has an Ultra Sound Scheduled 07/29/2022 with [facility]. She has also lost about 55 pounds in a month and a half. Please review referral, per guidelines we are to send in basketmessage to clinic before scheduling. Patient Call Back number: [phone] documented in this encounter Plan of Treatment Upcoming Encounters Date Type Department Care Team (Late st Contact Info) Description 07/02/2024 5:30 PM CDT Appointment [facility] MRI [address] [place] [address] Karl Miller MD [address] [place] [address] documented as of this encounter Visit Diagnoses Not on filedocumented in this encounter Additional Health Concerns Infection Onset Date Last Indicated Resolved Time COVID-19 Under Investigation 08/03/2022 08/03/2022 08/03/2022 6:41 PM CDT COVID-19 Under Investigation 03/10/2023 03/10/2023 03/10/2023 6:40 PM RELAY SHOP TESTER COVID-19 Under Investigation 12/16/2023 12/16/2023 12/16/2023 11:15 AM CDT documented as of this encounter Care Teams Look Out Tower Fire Watcher Relationship Specialty Start Date End Date Santos Nguyen MD [address] [address] PCP - General 01/08/22 Vinod Zuñiga MD [address] [address] [address] [place], [place] [id number] Obstetrics and Gynecology 09/01/21 Ulysses Higgins MD [address] [place] [address] Orthopedic Surgery 05/10/22 Reji Mancuso LMSW Outpatient Plumbing Installer Care Management 08/06/2207/22 Vero Ingram MSW Outpatient Plumbing Installer Care Management 08/06/2208/20 Reji Mancuso LMSW Outpatient Plumbing Installer Care Management 02/07/23 Brunilda Hoff, INSURANCE CLAIMS SPECIALIST Plumbing Installer 02/07/23 02/15/23 Reji Mancuso LMSW Outpatient Plumbing Installer Care Management 03/18/2302/22 Jennifer Patel, MARY [address] [place] [address] HhaParalegal Internship 12/20/23 02/10/24 Reji Mancuso, [facility] Plumbing Installer Care Management 02/17/24 02/21/24 documented as of this encounter
--- OUTSIDE RECORDS SUMMARY | 2024-05-30 17:10 | XMS_ITS | Encounter Summary ---
Author Organization [facility] Address [address] [place] [address] Care Team Providers Care Assessment Nurse Practitioner Name Role Phone Vinod Zuñiga MD Unavailable [phone] Santos Nguyen MD Primary Care Provider [phone] Ulysses Higgins MD Unavailable [phone] Jennifer Patel RN Unavailable Reji Mancuso BASKET GRADER Unavailable [phone] Encounter Details Date Type Department Care Team (Late st Contact Info) Description 05/25/2023 Telephone [facility] - Rheumatology [address] [facility], [place] [address] Álvaro Barnett MD [address] [place] [address] Social History Tobacco Use Types Packs/Day Years [...] Recorded Patient Health Questionnaire-2 Score 0 03/18/2023 [facility] - Occupational Stress [...] place to sleep or slept in a half-way (including now)? No 02/02/2023 Sex and Gender [...] encounter Miscellaneous Notes * Telephone Encounter - Janet Nagy - 05/25/2023 4:08 PM CDT Patient called saying her submandibular gland is swollen and extremely sore. Feels like it is on fire. She hopes it in not an abscess. Patient is requesting a call back. Patient also wishes to discuss her daughter becoming a patient of Dr. Huffman. Patient call back number [phone] Or [phone] documented in this encounter Plan of Treatment Upcoming Encounters Date Type Department Care Team (Late st Contact Info) Description 07/02/2024 5:30 PM CDT Appointment [facility] MRI [address] [place] [id number] Karl Miller MD [address] DEPT [place] [address] documented as of this encounter Visit Diagnoses Not on filedocumented in this encounter Additional Health Concerns Infection Onset Date Last Indicated Resolved Time COVID-19 Under Investigation 12/16/2023 12/16/2023 12/16/2023 11:15 AM CDT documented as of this encounter Care Teams Assessment Nurse Practitioner Relationship Specialty Start Date End Date Santos Nguyen MD [address] [facility] [address] [place] [address] PCP - General 01/08/22 Vinod Zuñiga MD [address] [place] [address] Obstetrics and Gynecology 09/01/21 Ulysses Higgins MD [address] [place] [address] Orthopedic Surgery 05/10/22 Jennifer Patel RN [address] [place] [address] V Belt Mold Assembler And CurerCulinary Artist 12/20/23 02/10/24 Reji Mancuso LMSW Income Tax Adjuster Care Management 02/17/24 02/21/24 documented as of this encounter
--- OUTSIDE RECORDS SUMMARY | 2024-05-30 17:10 | XMS_ITS | Encounter Summary ---
Author Organization [facility] Address [address] [facility] [place] [address] Care Team Providers Care Animal Behaviourist Name Role Phone Vinod Zuñiga MD Unavailable [phone] Santos Nguyen MD Primary Care Provider [phone] Ulysses Higgins MD Unavailable [phone] Reji Mancuso PLATE MAKER ZINC Unavailable [phone] Vero Ingram PRINT TRAFFIC MANAGER Unavailable [phone] [place] benitezra PLATE MAKER ZINC Unavailable Brunilda Hoff PRINT TRAFFIC MANAGER Unavailable [employer] benitezra PLATE MAKER ZINC Unavailable Jennifer Patel RN Unavailable [phone] Reji Mancuso PLATE MAKER ZINC Unavailable [phone] Encounter Details Date Type Department Care Team (Late st Contact Info) Description 07/27/2022 Telephone [facility] - Endocrinology [address] [place] [address], [place] [address] Alejandro Layne MD [address] [place] [address] [place] [address] Social History Tobacco Use Types Packs/Day Years [...] Orientation Straight 09/23/2021 3: 30 PM CDT COVID-19 Exposure Response Date Recorded In the last 10 days, have yo u been in contact with someone who was confirmed or suspected to have Coronavirus/COVID-19? No / Unsure 07/28/2022 4:53 PM CDT documented as of this encounter Miscellaneous Notes * Telephone Encounter - Jen Tinajero - 07/27/2022 3:27 PM CDT Current Provider name: Dr. Analy Layne Reason for call: Ms. Yvonne Fonseca has an appt 10/11/2022 and is on wait list as NEW PT. She just called in mentioning she has lost 55 lbs in about a month and would like a sooner appt. She sweats, not feeling well has ultrasound scheduled 07/29/22 done at [facility] and will have it sent over for review. Please advise. Patient Call Back number: [phone] documented in this encounter Plan of Treatment Upcoming Encounters Date Type Department Care Team (Late st Contact Info) Description 07/02/2024 5:30 PM CDT Appointment [facility] MRI [address] [place] [id number] Karl Miller MD [address] DEPT OF [place] [address] documented as of this encounter Visit Diagnoses Not on filedocumented in this encounter Additional Health Concerns Infection Onset Date Last Indicated Resolved Time COVID-19 Under Investigation 08/03/2022 08/03/2022 08/03/2022 6:41 PM CDT COVID-19 Under Investigation 03/10/2023 03/10/2023 03/10/2023 6:40 PM RAIL CAR DRIVER COVID-19 Under Investigation 12/16/2023 12/16/2023 12/16/2023 11:15 AM CDT documented as of this encounter Care Teams Animal Behaviourist Relationship Specialty Start Date End Date Santos Nguyen MD [address] [address] PCP - General 01/08/22 Vinod Zuñiga MD [address] [address] [address] [place], [place] [address] Obstetrics and Gynecology 09/01/21 Ulysses Higgins MD [address] [place] [address] Orthopedic Surgery 05/10/22 Reji Mancuso LMSW Outpatient Film Loader Care Management 08/06/2207/22 Vero Ingram MSW Outpatient Film Loader Care Management 08/06/2208/20 Reji Mancuso LMSW Outpatient Film Loader Care Management 02/07/23 Brunilda Hoff, MARYAM Film Loader 02/07/23 02/15/23 Reji Mancuso LMSW Outpatient Film Loader Care Management 03/18/23 108/14 Jennifer Patel RN [address] [place] [address] Soil CheckerDental Financial Coordinator 12/20/23 02/10/24 Reji Mancuso LMSW Film Loader Care Management 02/17/24 02/21/24 documented as of this encounter
--- OUTSIDE RECORDS SUMMARY | 2024-05-30 17:10 | XMS_ITS | Encounter Summary ---
Author Organization [facility] Address [address] [facility] [place] [address] Care Team Providers Care Coal Briquette Machine Operator Name Role Phone Vinod Zuñiga MD Unavailable [phone] Santos Nguyen MD Primary Care Provider [phone] Ulysses Higgins MD Unavailable [phone] Encounter Details Date Type Department Care Team (Late st Contact Info) Description 03/08/2024 Telephone [facility] - Centralized Scheduling [address] [place] [address] Mario Huffman MD [address] [place] [address] Social History Tobacco Use Types Packs/Day Years [...] Date Recorded Patient Health Questionnaire-2 Score 0 03/12/2024 [facility] - Occupational Stress [...] place to sleep or slept in a prison (including now)? No 02/02/2023 Sex and Gender [...] No 03/17/2023 documented as of this encounter Plan of Treatment Upcoming Encounters Date Type Department Care Team (Late st Contact Info) Description 07/02/2024 5:30 PM CDT Appointment [facility] MRI [address] [place] [phone] Karl Miller MD [address] [facility] [address] [place] [address] documented as of this encounter Visit Diagnoses Not on filedocumented in this encounter Care Teams Coal Briquette Machine Operator Relationship Specialty Start Date End Date Santos Nguyen MD [address] [facility] [address] [place] [address] PCP - General 01/08/22 Vinod Zuñiga MD [address] [place], [place] [address] Obstetrics and Gynecology 09/01/21 Ulysses Higgins MD [address] [place] [address] Orthopedic Surgery 05/10/22 documented as of this encounter
--- OUTSIDE RECORDS SUMMARY | 2024-05-30 17:10 | XMS_ITS | Continuity of Care Document ---
Author Organization [facility] Address [address] [facility] [address] [place] [address] Phone Care Team Providers Care Car Ferry Master Name Role Phone Colin Mata MD Unavailable Unavailable Allergies, Adverse Reactions, Alerts Substance Reaction Status Criticality ibuprofen Active No Information Medications Medication Instructions Dosage Effective Dates (start - stop) Status Comments GABAPENTIN (unknown strength) Not Available - Active CITALOPRAM HBR (unknown strength) Not Available - Active BACLOFEN (unknown strength) Not Available - Active ADDERALL (unknown strength) Not Available - Active PROPRANOLOL HCL ER (unknown strength) Not Available - Active Procedures Procedure Date OFFICE/OUTPATIENT VISIT NEW Advance Directives Directive Yes / No Effective Date File Name No Information Encounters Encounter Description Practice Location Reason(s) For Visit Diagnoses Date Provider Providers Copied on Encounter OFFICE/OUTPA TIENT VISIT NEW [facility], [address] [facility] [address], [place], [address], [place] tel:[phone] [facility] Knee pain with avascular necrosis determined by x-rayOther osteonecrosis, left femurChiari I malformationLocki ng of left kneeRheumatoid arthritis involving multiple sites, unspecified whether rheumatoid factor presentBody mass index [BMI] 32.0-32.9, adult [address] [facility] [address] [place], [place], [id number] . tel:[phone] Family History Family Member Type Diagnosis Age At Onset Mother Problem Rheumatoid arthritis Sister Problem Rheumatoid arthritis Sister Problem Lupus erythematosus Mother Problem Seizure disorder Mother Problem COPD Immunizations Vaccine Date Status Comments Flu (split) (3 yrs or older) administered Note: NONE ; Source: Other Provider Payers Payer name Insurance type Covered constitution party ID Mayi mercer(s) Blue Access PPO E2 OT [id number] Social History Type Description Quantity Date Captured Comments Alcohol Use Details No Caffeine Use Details Unknown Tobacco Use Status Current non-smoker Smoking Status Never smoker Non-Smoking Tobacco Use Details : No Details Available : No Details Available Sex Female Vital Signs Date / Time: Height Weight BMI Pulse Rate Blood Pressure Temperature Respiratory Rate Body Surface Area Head Circumference Head Circ. Percentile Wt./Shan. Percentile BMI percentile Pulse Ox Inhaled Ox 3:59 PM 62.00 in 79.379 kg (175.00 lbs) 32.0 1 kg/m eter (2) Chief Complaint And Reason For Visit No Information Reason For Referral Reason For Referral No Information History Of Present Illness Encounter Date Complaint History Of Prese nt Illness No Information Functional Status Date Functional Assessmen t No Information Instructions Date Instruction Additional Infor mation Weight monitoring Related to Bod y mass index [BMI] 32.0-32.9, adult Assessments Type Assessment Date assessment Knee pain with avascular necrosi s determined by x-ray assessment Other osteonecrosis, left femur assessment 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
--- OUTSIDE RECORDS SUMMARY | 2024-05-30 17:10 | XMS_ITS ---
Author Organization [facility] Address [address] [place] [address] Care Team Providers Care Patch Press Operator Name Role Phone Rufus Purdy Primary Care Provider REASON FOR VISIT refills Medications Medication SIG (Take, Route, Frequency, Duration) Notes Start Date End Date Status Amphetamine-Dextroamphetam ine 30 MG 1 tablet Orally Twice a day for 30 days 04/04/2024 Active Social History Sex Assigned At : Social History Observation Description Sex Assigned At Female Encounters Encounter Location Date Provider Diagnosis [address] [address] 04/04/2024 Rufus Purdy ADHD (attention deficit hyperactivity disorder), inattentive type F90.0 Assessments Encounter Date Diagnosis (ICD Code) Assessment Notes Treatment Notes Treatment Clinical Notes Section Notes 04/04/2024 ADHD (attention deficit hyperactivity disorder), inattentive type (ICD-10 - F90.0) Plan Of Treatment Medication Medication Name Sig Start Date Stop Date Notes Amphetamine-Dextroamphetamin e 30 MG 1 tablet Orally Twice a day for 30 days 04/04/2024 Progress Notes * DAVID YvonneDOB:1980 ( 44 yo F)Acc No.[id number]:04/04/2024 Patient: Yvonne ARIAS :1980 A ge:44 Y S ex:Female Address:[address] [place] [address], [address] * Refills Continue Amphetamine-Dextroamphetamine Tablet, 30 MG, Orally, 60 Tablet, 1 tablet, Twice a day, 30 days, Refills=0 * true * Date: Generated for Tariq valdes/Jae/Nadir on: 0 05/30/2024 11:01 AM CDT
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
--- OUTSIDE RECORDS SUMMARY | 2024-05-30 17:11 | XMS_ITS | Encounter Summary ---
Author Organization [facility] Address [address] [place] [address] Care Team Providers Care Regional Economic Liaison Name Role Phone Vinod Zuñiga MD Unavailable [phone] Santos Nguyen MD Primary Care Provider [phone] Ulysses Higgins MD Unavailable [phone] Reji Mancuso [facility] Unavailable [phone] Brunilda Hoff CYLINDER TESTER Unavailable [phone] Reji Mancuso [facility] Unavailable [phone] Jennifer Patel RN Unavailable Reji Mancuso [facility] Unavailable [phone] Encounter Details Date Type Department Care Team (Late st Contact Info) Description 12/20/2022 Telemedicine [facility] - Rheumatology [address] [place] [address], [place] [address] Aaron Austin MD [address] [place] [address] [place] [address] Social History Tobacco Use Types Packs/Day Years Used Date Smoking Tobacco: Former Cigarettes Q uit: 02/21/2015 Smokeless Tobacco: Never Alcohol Use Standard Drinks/Week Comments Yes 0 (1 standard drink = 0.6 oz pur e alcohol) socially PHQ-2 Answer Date Recorded PHQ2 TOTAL SCORE 0 08/10/2022 Sex and Gender Information Value Date Recorded Sex Assigned at Female 09/23/2021 3:30 PM CDT Gender Identity Female 09/23/2021 3:30 PM CDT Sexual Orientation Straight 09/23/2021 3: 30 PM CDT documented as of this encounter Plan of Treatment Upcoming Encounters Date Type Department Care Team (Late st Contact Info) Description 07/02/2024 5:30 PM CDT Appointment [facility] [address] [place] [address] Karl Miller MD [address] [place] [address] documented as of this encounter Visit Diagnoses Not on filedocumented in this encounter Additional Health Concerns Infection Onset Date Last Indicated Resolved Time COVID-19 Under Investigation 03/10/2023 03/10/2023 03/10/2023 6:40 PM DIRECTOR OF HEAD START COVID-19 Under Investigation 12/16/2023 12/16/2023 12/16/2023 11:15 AM CDT documented as of this encounter Care Teams Regional Economic Liaison Relationship Specialty Start Date End Date Santos Nguyen MD [address] [facility] [address] [place] [address] PCP - General 01/08/22 Vinod Zuñiga MD [address] [facility] [address] [place] [address] Obstetrics and Gynecology 09/01/21 Ulysses Higgins MD [address] [place] [address] Orthopedic Surgery 05/10/22 Reji Mancuso LMSW Outpatient [employer] M[employer] Machine Operator Care Management 02/07/23 Brunilda Hoff MSW [employer] Machine Operator 02/07/23 02/15/23 Reji Mancuso LMSW Outpatient [employer] Machine Operator Care Management 03/18/23 1/08/14 Jennifer Patel RN [address] [place] [address] Proof ReaderDinkey Motor Operator 12/20/23 02/10/24 Reji Mancuso LMSW [employer] Machine Operator Care Management 02/17/24 02/21/24 documented as of this encounter
--- OUTSIDE RECORDS SUMMARY | 2024-05-30 17:11 | XMS_ITS | Encounter Summary ---
Author Organization [facility] Address [address] [facility] [place] [address] Care Team Providers Care Senior Ui Developer Name Role Phone Vinod Zuñiga MD Unavailable [phone] Santos Nguyen MD Primary Care Provider [phone] Ulysses Higgins MD Unavailable [phone] Reason for Visit * Reason Onset Date Comments Pain 05/25/2024 Med Question 05/25/2024 Encounter Details Date Type Department Care Team (Late st Contact Info) Description 05/25/2024 Telephone [facility] - Internal Medicine [address] [place] [id number] Santos Nguyen MD [address] [place] [id number] Pain; Med Question Social History Tobacco Use Types Packs/Day Years Used Date Smoking Tobacco: Former Cigarettes Q uit: 02/21/2015 Smokeless Tobacco: Never Alcohol Use Standard Drinks/Week Comments Not Currently 0 (1 standard drink = 0.6 oz pur e alcohol) AUDIT-C Answer Date Recorded Frequency of Alcohol [...] Date Recorded Patient Health Questionnaire-2 Score 0 04/24/2024 [facility] - Occupational [...] place to sleep or slept in a custodial (including now)? No 02/02/2023 Sex and Gender [...] encounter Miscellaneous Notes * Telephone Encounter - Santos Nguyen MD - 05/28/2024 6:32 PM CDT Defer to rheum as indicated previously. (cc'd Dr. Barnett) Santos Nguyen MD * Telephone Encounter - Macarena Guerra RN - 05/25/2024 3:30 PM CDT Pt is calling to ask why her refill of Celebrex was denied Did advise pt that message was forwarded to Dr. Barnett: Santos Nguyen MD to Álvaro Barnett MD 05/01/24 2:50 PM Defer to you on ?MTX dose adjustment, as celebrex can inc serum MTX levels. She has not heard anything about Celebrex from rheumatology She was having issues with pharmacy, and has not had her Xeljanz since 05/09/24 She thinks the issue is corrected now, and she should get Rx in mail soon Pt understands if Celebrex cannot be prescribed, but it wondering if there is an alternative? Pain worsening with being without Xeljanz, whole body hurts She takes Tylenol Arthritis OTC Please review and advise, thank you Macarena Guerra RN documented in this encounter Plan of Treatment Upcoming Encounters Date Type Department Care Team (Late st Contact Info) Description 07/02/2024 5:30 PM CDT Appointment [place] [id number] [place] [address] Karl Miller MD [address] [facility] [address] [place] [address] documented as of this encounter Visit Diagnoses Not on filedocumented in this encounter Care Teams Senior Ui Developer Relationship Specialty Start Date End Date Santos Nguyen MD [address] [facility] [address] [place] [address] PCP - General 01/08/22 Vinod Zuñiga MD [address] [place], [place] [id number] Obstetrics and Gynecology 09/01/21 Ulysses Higgins MD [address] [place] [address] Orthopedic Surgery 05/10/22 documented as of this encounter
--- OUTSIDE RECORDS SUMMARY | 2024-05-30 17:11 | XMS_ITS | Encounter Summary ---
Author Organization [facility] Address [address] [facility] [place] [address] Care Team Providers Care Wrecker Driver Name Role Phone Vinod Zuñiga MD Unavailable [phone] Santos Nguyen MD Primary Care Provider [phone] Ulysses Higgins MD Unavailable [phone] Jennifer Patel RN Unavailable [phone] Reji Mancuso [facility] Unavailable [phone] Reason for Visit * Reason Onset Date Comments Appointment 11/11/2023 Encounter Details Date Type Department Care Team (Late st Contact Info) Description 11/11/2023 Telephone [facility] - Ophthalmology [address] [place] [address] Alon Acosta MD [address] [place] [address] [place] [address] Appointment Social History Tobacco Use Types Packs/Day Years [...] Recorded Patient Health Questionnaire-2 Score 0 03/18/2023 [facility] - Occupational [...] place to sleep or slept in a longterm (including now)? No 02/02/2023 Sex and Gender [...] encounter Miscellaneous Notes * Telephone Encounter - Johanny Owusu - 11/11/2023 4:35 PM CDT Pt called stating she relapsing polychondritis and is having issues with her eyes was seen in the hospital and was recommended to come get an eye exam thru u. documented in this encounter Plan of Treatment Upcoming Encounters Date Type Department Care Team (Late st Contact Info) Description 07/02/2024 5:30 PM CDT Appointment [facility] [address] [place] [id number] Karl Miller MD [address] DE[place] [address] documented as of this encounter Visit Diagnoses Not on filedocumented in this encounter Additional Health Concerns Infection Onset Date Last Indicated Resolved Time COVID-19 Under Investigation 12/16/2023 12/16/2023 12/16/2023 11:15 AM CDT documented as of this encounter Care Teams Wrecker Driver Relationship Specialty Start Date End Date Santos Nguyen MD [address] [facility] [address] [place] [address] PCP - General 01/08/22 Vinod Zuñiga MD [address] [facility] [address] [place] [id number] Obstetrics and Gynecology 09/01/21 Ulysses Higgins MD [address] [place] [address] Orthopedic Surgery 05/10/22 Jennifer Patel RN [address] [place] [address] Champagne MakerConversion Worker 12/20/23 02/10/24 Reji Mancuso BAILER TENDERS SUPERVISOR Farmworker Fur Care Management 02/17/24 02/21/24 documented as of this encounter
--- OUTSIDE RECORDS SUMMARY | 2024-05-30 17:11 | XMS_ITS | Encounter Summary ---
Author Organization [facility] Address [facility] [place] [address] Care Team Providers Care Office Electrician Name Role Phone Nate Arteaga MD Primary Care Provider [phone] Santos Nguyen MD Primary Care Provider [phone] Encounter Details Date Type Department Care Team (Latest Contact Info) Description 04/30/2020 MyChart Message Enc [facility] - [facility] [address] [facility], [address] [place] [id number] Darío Sanchez MD [address] [place] [address] RE: Follow Up/Update Social History Tobacco Use Types Packs/Day Years Used Date Smoking Tobacco: Former Cigarettes 2015 Smokeless Tobacco: Never Alcohol Use Standard Drinks/Week Comments No 0 (1 standard drink = 0.6 oz pur e alcohol) RARE PHQ-2 Answer Date Recorded PHQ-2 Score - If the patient scores above 3, please move on to questions 3-9 0 04/23/2020 Comments No Sex and Gender Information Value Date Recorded Sex Assigned at Not on file Legal Sex Female 11:36 PM CDT Gender Identity Female 05/14/2022 9:55 AM CDT Sexual Orientation Not on file COVID-19 Exposure Response Date Recorded In the last month, have you been in contact with someone who was confirmed or suspected to have Coronavirus / COVID-19? No / Unsure 05/01/2020 8:18 AM DATABASE DESIGNER documented as of this encounter Plan of Treatment Not on file documented as of this encounter Visit Diagnoses Not on filedocumented in this encounter Additional Health Concerns Infection Onset Date Last Indicated Resolved Time COVID-19 Rule Out 11/24/2021 11/24/2021 11/24/2021 4:26 PM CDT documented as of this encounter Care Teams Office Electrician Relationship Specialty Start Date End Date Nate Arteaga MD [address] [place] [address] PCP - General INTERNAL MEDICINE 02/28/20 12/31/21 Santos Nguyen MD [address] [address] PCP - General FAMILY PRACTICE 01/01/22 documented as of this encounter
--- OUTSIDE RECORDS SUMMARY | 2024-05-30 17:11 | XMS_ITS ---
Author Organization [facility] Address [address] [place] [address] Care Team Providers Care Switchboard Wirer Name Role Phone Rufus Purdy Primary Care Provider [phone] REASON FOR VISIT Refill Medications Medication SIG (Take, Route, Frequency, Duration) Notes Start Date End Date Status Amphetamine-Dextroamph etamine 30 MG 1 tablet Orally Twice a day for 5 days [facility] refill 05/02/2024 Active Social History Sex Assigned At : Social History Observation Description Sex Assigned At Female Encounters Encounter Location Date Provider Diagnosis [facility] [address] [place] [address] 05/02/2024 Rufus Purdy ADHD (attention deficit hyperactivity disorder), inattentive type F90.0 Assessments Encounter Date Diagnosis (ICD Code) Assessment Notes Treatment Notes Treatment Clinical Notes Section Notes 05/02/2024 ADHD (attention deficit hyperactivity disorder), inattentive type (ICD-10 - F90.0) Plan Of Treatment Medication Medication Name Sig Start Date Stop Date Notes Amphetamine-Dextroamphetami ne 30 MG 1 tablet Orally Twice a day for 5 days 05/02/2024 [facility] refill Progress Notes * Yvonne FONSECADOB:1980 ( 44 yo F)Acc No.[id number]:05/02/2024 Patient: Yvonne ARIAS :1980 A ge:44 Y S ex:Female Address:[address] [place] [address], [address] * Refills Continue Amphetamine-Dextroamphetamine Tablet, 30 MG, Orally, 10 Tablet, 1 tablet, Twice a day, 5 days, Refills=0 * true * Date: Generated for Tariq valdes/Jae/Nadir on: 0 05/30/2024 05:10 PM CDT
--- OUTSIDE RECORDS SUMMARY | 2024-05-30 17:11 | XMS_ITS | Clinical Summary ---
Author Organization [address] Address [facility] [place] [address] Care Team Providers Care Front Office Specialist Name Role Phone Santos Nguyen MD Primary Care Provider [phone] Allergies Active Allergy Reactions Criticality Noted Date Comments Amitriptyline Nausea And Vomiting,Nausea only Low 01/08/2014 Ibuprofen Unknown 12/29/2021 Morphine Headache,Nausea only Low 04/27/2017 Reaction: HEADACHE Nsaids (Non-Steroidal Anti-Inflammatory Drug) Promethazine Swelling,Unknown Medium 12/22/2012 LOCAL REACTION Swelling Unknown LOCAL REACTION Medications butalbital-acetami nophen-caffeine (FIORICET) 50-325-40 mg per tablet take 1 tablet by ORAL route every 8 - 12 hours as needed not to exceed 6 tablets per 24hrs 45 0 0 Active oxyCODONE-acetamin ophen (PERCOCET) 5-325 mg per tablet take 1 tablet by ORAL route 8 - 12 hours as needed 40 0 0 Active oxyCODONE-acetamin ophen (PERCOCET) 5-325 mg per tablet take 1 tablet by ORAL route 8 - 12 hours as needed 25 0 0 Active atorvastatin (LIPITOR) 40 mg tablet Take 40 mg by mouth daily 2 Active citalopram (CeleXA) 40 mg tablet Take 40 mg by mouth daily 2 Active clonazePAM (KlonoPIN) 1 mg tablet TAKE 1 TABLET BY MOUTH EVERY DAY FOR ANXIETY OR PANIC ATTACKS 2 Active dextroamphetamine- amphetamine (ADDERALL) 30 mg tablet Take 1 tablet (30 mg total) by mouth daily Active dicyclomine (BENTYL) 10 mg capsule Take 10 mg by mouth 3 (three) times a day 2 Active famotidine (PEPCID) 40 mg tablet 2 Active gabapentin (NEURONTIN) 600 mg tablet Take 1 tablet (600 mg total) by mouth 4 (four) times a day 2 Active omeprazole (PriLOSEC) 40 mg capsule 2 Active ondansetron ODT (ZOFRAN-ODT) 4 mg disintegrating tablet DISSOLVE 2 TABLETS ON THE TONGUE TWICE A DAY NEEDED. 2 Active propranoloL (INDERAL) 40 mg tablet 2 Active sucralfate (CARAFATE) 1 gram tablet Take 1 g by mouth daily as needed 2 Active lidocaine (LIDODERM) 5 %Indications:Pain Place 1 patch on the skin daily Use patch for 12 hours on, 12 hours off. Discard after each use 7 patch 2 Active diclofenac sodium (VOLTAREN) 1 % gel Apply 2 g topically 4 (four) times a day 50 g 3 Active acetaminophen (TYLENOL) 325 mg tablet Take 1 tablet (325 mg total) by mouth every 4 (four) hours as needed Active albuterol HFA (PROVENTIL HFA,VENTOLIN HFA,PROAIR HFA) 90 mcg/actuation inhaler INHALE 2 PUFFS BY MOUTH EVERY 6 HOURS NEEDED FOR SHORTNESS OF BREATH 3 Active amoxicillin-clavul anate (AUGMENTIN) 875-125 mg per tablet TAKE 1 TABLET BY MOUTH TWICE DAILY WITH THE MORNING AND EVENING MEAL 3 Active baclofen (LIORESAL) 20 mg tablet Active benzonatate (TESSALON) 100 mg capsule TAKE 1 CAPSULE BY MOUTH THREE TIMES A DAY NEEDED FOR COUGH Active methotrexate 25 mg/mL injection solution Inject 0.8-1 mL (20-25 mg total) under the skin once a week 3 Active diazePAM (VALIUM) 5 mg tablet PLEASE SEE ATTACHED FOR DETAILED DIRECTIONS 3 Active ergocalciferol (VITAMIN D) 50,000 unit capsule TAKE 1 CAPSULE BY MOUTH ONE TIME PER WEEK FOR 30 DAYS 2 Active folic acid 0.8 mg capsule 3 Active HYDROcodone-acetam inophen (NORCO) 5-325 mg per tablet TAKE 1 TABLET BY MOUTH EVERY 6 HOURS FOR UP TO 7 DAYS NEEDED FOR PAIN 3 Active Active Problems Problem Noted Date Diagnosed Date 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 relapsing polychondritis still on systemic steroid Rx now on moderate dose SC MTX for steroid sparing effect. Last Assessment & Plan: Working Dx of ? relapsing polychondritis still on systemic steroid Rx now on moderate dose SC MTX for steroid sparing effect. Will try to rapidly titrate SC MTX to 0.8 ml (20 mg)-1.0 ml (25 mg) within the next few weeks and taper prednisone (now taking 30 mg QD) hopefully to 10 mg within the next 6 weeks (forgot to take AM prednisone 10/26/2022). Overall with reduced polyarthralgia but still with voice hoarseness, sore throat and painful nasal sores with scant nasal bleeding and left SI regional pain. Methotrexate, manager of housekeeping, current use 09/17/2022 Overview (12/06/2022): Last Assessment & Plan: The patient has been counseled on risks and benefits of methotrexate use including but not limited to the risk of liver toxicity, bone marrow suppression, methotrexate induced lung injury and potential for teratogenic side effects/ defects and spontaneous miscarriage. The patient was counseled regarding the use of any effective form of contraception to avoid while taking methotrexate (not relevant due to history of hysterectomy). The patient was advised to discontinue methotrexate and called this clinic immediately if any sudden cough, fevers or dyspnea on exertion develops. CBC with differential, liver function enzymes and renal/kidney function status will be routinely checked every 8-12 weeks to screen the patient for possible developing methotrexate side effects. While receiving treatment with methotrexate the patient should avoid the use of sulfonamide containing antibiotics such as trimethoprim/sulfamethoxazole also known as Bactrim due to significant and potentially severe drug interaction related side effects. Additionally, alcohol should not be consumed while using methotrexate due to an increase risk for the possible future development of liver related side effects including liver injury such as cirrhosis. Change in nail appearance 08/13/2022 Overview (12/06/2022): May represent onychomycosis and less likely psoriatic nail disease. Globus sensation 08/13/2022 Overview (12/06/2022): Globus sensation of throat tightness and tongue swelling/enlargement and probably requires direct laryngoscopy. Primary fibromyalgia syndrome 08/13/2022 Overview (12/06/2022): Strongly suspect a fibromyalgia syndrome (at least for some symptoms) and will try low dose duloxetine w/ dose titration if needed and tolerated. Polyarthralgia 07/29/2022 Overview (12/06/2022): Uncertain nature of polyarthralgia which may or may not represent a fibromyalgia syndrome but still would consider SLE/UCTD or autoinflammatory disorder. Last Assessment & Plan: Per Dr Singleton 07/29/2022. Uncertain nature of polyarthralgia which may or may not represent a fibromyalgia syndrome but still would consider SLE/UCTD or autoinflammatory disorder. Patient started on prednisone daily without improvement in symptoms. Patient also with urinary symptoms/ kidney pain that she is concerned may be a manifestation of SLE in kidneys. - Admit to [facility], Dr Wiley - Rheumatology consult in AM - continue prednisone 10 mg daily, gabapentin 400 TID - UA pending - Continue home Celebrex BID, [place] 5 PRN for moderate pain, Dilaudid PRN severe Positive KEVAN (antinuclear antibody) 07/29/2022 Overview (12/06/2022): Low positive nonspecific KEVAN result although w/o ACR criteria for an SLE diagnosis however unable to explain ongoing fevers and alopecia. Check AVISE testing. 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 Intermittent fever 07/13/2021 Anxiety 08/01/2020 MELLISA (generalized anxiety disorder) 08/01/2020 Hepatitis C infection 05/05/2020 Lumbago with sciatica, right side 02/25/2020 Traumatic injury of ankle with fracture of talus 09/27/2017 Chronic headache disorder 01/08/2014 Chiari malformation type II 02/20/2009 History of partial hysterectomy 03/24/2006 Endometrial cancer 03/24/2006 Squamous cell carcinoma of cervix 03/24/2006 History of cholecystectomy 02/21/2002 Surgical History Surgery Date Site/Laterality Comments REDUCTION MAMMOPLASTY Breast reduction HYSTERECTOMY Hysterectomy CHOLECYSTECTOMY Cholecystectomy ANKLE FRACTURE SURGERY BRAIN SURGERY 08/30 BREAST SURGERY 09/22 FRACTURE SURGERY 12/12 ABDOMINAL SURGERY Medical History Medical History Date Comments Cancer (HCC) Endometriosis GERD (gastroesophageal reflux disease) 2020 Arthritis ? Autoimmune disease 09/12 Kidney stone ? Family History Medical History Relation Name Comments Allergy (severe) Daughter Shilah Asthma Daughter Shilah Depression Daughter Shilah Learning disabilities Daughter Shilah Alcohol abuse Father Jesus Cirrhosis Father Jesus Liver cancer Father Jesus Cancer -liver; COPD Mother Beata Memory loss Mother Beata Mitral valve prolapse Mother Beata Mitral valve prolapse; Other Mother Beata Epilespy; Other Other Family history of Hepatitis B; Depression Son 1 Richie Learning disabilities Son 1 Richie Learning disabilities Son 2 Scott Relation Name Status Comments Daughter Shilah Father Jesus Mother Beata Alive Other Son 1 Richie Son 2 Scott Social History Tobacco Use Types Packs/Day Years Used Date Smoking Tobacco: Every Day Vaping Tobacco Cessation:Ready to Q uit: Not Asked; Counseling Given: Not Answered Alcohol Use Standard Drinks/Week Comments No 0 (1 standard drink = 0.6 oz pur e alcohol) AUDIT-C Answer Date Recorded Q1: How often do you have a drink containing alc ohol? Monthly or less 10/03/2021 Q2: How many drinks containi ng alcohol do you have on a typical day when you are drinking? 1 or 2 10/03/2021 Q3: How often do you have si x or more drinks on one occasion? Never 10/03/2021 Personal Safety Answer Date Recorded Have you ever been in or are you currently in a harmful physical or emotional relationship or is someone making you feel afraid or unsafe? 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 file Not on file Not on file Obstetrics History Last Filed Vital Signs Vital Sign Reading Time Taken Comments Blood Pressure 108/59 02/28/2024 6:40 PM ALINING INSPECTOR Pulse 101 02/28/2024 6:40 PM ALINING INSPECTOR Temperature 37.1 C (98.8 F) 02/28/2024 10:28 AM ALINING INSPECTOR Respiratory Rate 18 02/28/2024 6:40 PM ALINING INSPECTOR Oxygen Saturation 97% 02/28/2024 6:40 PM ALINING INSPECTOR Inhaled Oxygen Concentration - - Weight 86.2 kg (190 lb) 02/28/2024 10:28 AM ALINING INSPECTOR Height 157.5 cm (5' 2 ) 12/06/2022 5:05 PM CDT Body Mass Index 34.75 12/06/2022 5:05 PM CDT Plan of Treatment Health Maintenance Due Date Last Done Comments Depression Screening 1980 Varicella Vaccines (1 of 2 - 13+ 2-dose series) 01/15/1993 Hepatitis B Screening 01/15/1998 Regular Well Visit/Exam 18-64 01/15/1998 Pneumococcal vaccine <65 (1 of 2 - PCV) 01/15/1999 Zoster Vaccine (1 of 2) 01/15/1999 Covid-19 Vaccine (3 - Modern a risk series) 05/02/2020 04/04/2020, 03/07/2020 Breast Cancer Screening-Mammogram 09/07/2023 09/06/2022, 09/06/2022 DTaP/Tdap/Td Vaccine (2 - Td or Tdap) 03/27/2024 03/27/2014 Influenza Vaccine (Season Ended) 2024 12/29/2021 Hepatitis C Screening Completed 05/05/2020 HPV Vaccines Aged Out No longer eligi ble based on patient's age to complete this topic Insurance [facility] Care Teams Front Office Specialist Relationship Specialty Start Date End Date Santos Nguyen MD [address] [place] [id number] PCP - General Family Medicine 10/23/21
--- OUTSIDE RECORDS SUMMARY | 2024-05-30 17:11 | XMS_ITS | Encounter Summary ---
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 Seronegative rheumatoid arthritis (HCC) Immunosuppression due to drug therapy (HCC) Álvaro Barnett MD [address] [place] [address] Referral ID Status Reason Start Date Expiration Date V isits Requested Visits Authorized [id number] Open Specialty Services Required 05/30/2024 05/30/2025 1 1 Reason for Visit * Reason Comments Follow-up Encounter Details Date Type Department Care Team (Latest Contact Info) Description 05/30/2024 11:00 AM CDT Office Visit [facility] - Rheumatology [address] [place] [id number] Álvaro Barnett MD [address] [place] [address] Relapsing polychondritis (Primary Dx); Chondritis of both external ears; Seronegative rheumatoid arthritis (HCC); Immunosuppression due to drug therapy (HCC) Social History Tobacco Use Types Packs/Day Years [...] Recorded Patient Health Questionnaire-2 Score 0 04/24/2024 [facility] [place] [facility] - Occupational Stress [...] place to sleep or slept in a fdc (including now)? No 02/02/2023 Sex and Gender Information Value Date Recorded Sex Assigned at Female 09/23/2021 3:30 PM CDT Gender Identity Female 09/23/2021 3:30 PM CDT Sexual Orientation Straight 09/23/2021 3: 30 PM CDT documented as of this encounter Last Filed Vital Signs Vital Sign Reading Time Taken Comments Blood Pressure 122/81 05/30/2024 11:06 AM CDT Pulse 110 05/30/2024 11:06 AM CDT Temperature 36.3 C (97.3 F) 05/30/2024 11:06 AM CDT Respiratory Rate - - Oxygen Saturation - - Inhaled Oxygen Concentration - - Weight 83 kg (183 lb) 05/30/2024 11:06 AM CDT Height 157.5 cm (5' 2.01 ) 05/30/2024 11:06 AM C DT Body Mass Index 33.46 05/30/2024 11:06 AM CDT documented in this encounter Functional Status Functional Status Response [...] No 03/17/2023 documented as of this encounter Patient Instructions * Patient Instructions* Álvaro Barnett MD - 05/30/2024 12:09 PM CDT [facility] and every 8-12 weeks. After looking at the labs, we will refill the Methotrexate We will place a new pain clinic referral. We sent you a script for topical diclofenac. Please use up to 4 drops in your eye. Please continue the Xeljanz daily. Return to clinic: [address] Huffman/ new fellow To cancel, schedule, or reschedule an appointment, call [phone] or [phone], option 1. If you choose to get labs or imaging at an outside facility, it is your (as the patient) responsibility to have these results sent to us. Our fax number is [phone]. If you need a refill on your medication, please call your pharmacy first to have them send us a refill request. If you have an emergency after hours, you can reach the front desk lead fellow by calling the cinder dump crane operator [phone], but please also seek out appropriate care at Urgent Care or Emergency Room. documented in this encounter Progress Notes * Mario Huffman MD - 05/30/2024 11:29 AM CDT Rheumatology Attending Attestation: Date of Service: 05/30/24 I have seen and examined the patient with the fellow and I agree with the findings and plan of careas documented by the fellow. Encounter Diagnoses: 1. Relapsing polychondritis 2. Chondritis of both external ears 3. Seronegative rheumatoid arthritis (HCC) 4. Immunosuppression due to drug therapy (HCC) #. Seronegative Rheumatoid Arthritis History of failure with methotrexate, tocilizumab, infliximab. She has had a good response to Tofacitnib. - Continue Methotrexate - Continue Tofacitinib, submitting urgent PA #. Transaminitis Overdue for lab monitoring. - Counseling provided, recommended labs today but patient says she does not want to wait and will go sometime this week. #. Relapsing Polychondritis, Treatment-Resistant Onset ~2021. (A) Phenotype: b/l ear chondritis, nasal chondritis, b/l otitis media, inner ear involvement (hearing loss), appendicular arthritis, laryngotracheitis, costochondritis, episcleritis. Not VEXAS (XX, MCV <100, PLT >200). TTE 03/11/23 w/o valvulopathy. See Media 09/29/22 at 12:06, and 7/24/23 at 13:37 and 13:23. (B) MedHx: Methotrexate 25 mg SC weekly (Fall 2022 to August 2023, mild efficacy), Mycophenolate 1500mg PO BID (August 2023 - Oct 2023; no efficacy, worse than MTX), Prednisone 10-50 mg/d (2021 to Feb 2024), Infliximab 10 mg/kg (12/29/22 - Oct 2023; PMIDs [id number], [id number]), Cyclophosphamide 150 mg PO daily (~1.75 mg/kg; very efficacious, Jan 2023 to Apr 2023), Tocilizumab (Oct 2023, compelling allergic reaction after first infusion), Tofacitinib 11 mg PO daily (12/28/23 - current). (C) Status: low disease activity (D) Plan - Continue MTX 25 mg SC weekly - Continue Tofacitinib 11 mg daily - If signs of flares, recommend urgent clinic visit, we will accommodate #. Drug Toxicity Monitoring (MTX, Tofacitinib) - Monitoring CBCd/CMP q2m - Folic acid 1 mg daily #. Fibromyalgia #. Mood Disorder Contributing to diffuse pain syndrome. Duloxetine was a/w aggression. On pregabalin 150 mg PO BID. Defer to her psychiatrist (Se Purdy [phone]) #. H/o CYC - urine cytology q6-12m (last 01/09/24) Risks and benefits of management plan reviewed, patient agreed to therapy, all of the patient's questions were answered. RV in clinic ~3m Additional contributions to medical decision making for today's encounter: The patient is on drug therapy requiring intensive monitoring for toxicity. I reviewed the patient's chart including review of clinical notes, laboratory results, and imaging results. I educated the patient regarding risks and benefits of the management plan, their medical problems, and contingency plans for worsening symptoms. Total time spent reviewing records, conducting interview and physical, counseling, care coordination, placing any orders for investigative studies and/or medications, and documentation on the day of the encounter: 40+ minutes. This visit involved the longitudinal management of multiple chronic conditions requiring ongoing assessment, treatment adjustments, and coordination of care. Given the complexity of the patient's medical history and the interplay between conditions, significant cognitive effort was required to evaluate therapeutic options, assess medication interactions, and develop an individualized care plan. Acomprehensive discussion was conducted to address risk stratification, disease trajectory, and long-term treatment goals, incorporating shared decision-making to optimize outcomes. The complexity of today's visit extends beyond the standard E/M service, reflecting the inherent challenges of managing chronic conditions in a patient-centered, longitudinal manner. Mario Huffman MD, FACP, FACR Director, Rheumatology Fellowship Program Department of Internal Medicine [facility] of Medicine Encounter Orders and Future Appointments: Orders Placed This Encounter CBC WITH DIFFERENTIAL COMPREHENSIVE METABOLIC PANEL AMB REFERRAL TO PAIN CLINIC diclofenac 0.1% (Voltaren) 0.1 % ophthalmic solution Future Appointments Date Time Provider Department Center 07/02/2024 5:30 PM [facility] MRI [facility]NER 2 3T [facility] * Álvaro Barnett MD - 05/30/2024 11:23 AM CDT Rheumatology Clinic Follow Up Visit [facility] Division of Adult Rheumatology Patient: Yvonne Fonseca ( , 1980, 44 year old female) PCP: Santos Nguyen MD Encounter Date: 05/30/2024 CC: 44 yo F FU Relapsing Polychondritis History of Present Illness: Has continued MTX SC 25 mg weekly + 1 mg folic acid. Stopped prednisone in February 2024. Has continued Xeljanz 11 mg daily since early Dec 2023. Has issues with pharmacy and was off Xeljanz for a month. Restarted it a few days ago. + Pain in her ears, nose, shoulders. Unable to get XR due to transportation issues. Asking about MTX with preservatives so that it would sting less. Review of Systems: Other systems reviewed and negative or noncontributory except as stated in the HPI. Current Outpatient Medications: albuterol HFA (Proventil; Ventolin; Proair) 108 (90 Base) MCG/ACT inhaler, Inhale 2 (two) puffs by mouth every 6 hours as needed for Shortness of Breath, Disp: 8.5 g, Rfl: 0 amphetamine-dextroamphetamine (Adderall) 30 MG tablet, Take 1 (one) tablet by mouth 2 times daily, Disp: , Rfl: atorvastatin (Lipitor) 40 MG tablet, Take 1 (one) tablet by mouth once daily, Disp: , Rfl: celecoxib (CeleBREX) 200 MG capsule, Take 1 (one) capsule by mouth 2 times daily, Disp: 30 capsule,Rfl: 0 cyclobenzaprine (Flexeril) 10 MG tablet, Take 1 (one) tablet by mouth 3 times daily as needed for Muscle Spasms, Disp: 90 tablet, Rfl: 5 dextran 70-hypromellose (Artificial Tears) 0.1-0.3 % SOLN, 1 drop by Ophthalmic route 3 times daily1 drop in each eye three times per day, more as needed. Please dispense preservative free., Disp: 15 mL, Rfl: 3 diazePAM (Valium) 5 MG tablet, TAKE 1 AND 1/2 TABLETS BY MOUTH TWICE DAILY FOR 14 DAYS NEEDED FOR ANXIETY, Disp: , Rfl: diclofenac sodium (Voltaren) 1 % gel, Apply 2 (two) g to affected area 4 times daily, Disp: 2 g, Rfl: 1 Elastic Bandages & Supports (Knee Brace Adjustable Hinged) [facility], Use 1 Each once daily Left knee hinged orthotic (brace) to be worn due to chronic pain/joint instability, Disp: 1 Each, Rfl: 0 famotidine (Pepcid) 40 MG tablet, TAKE 1 TABLET BY MOUTH EVERY DAY, Disp: 90 tablet, Rfl: 3 folic acid (Folvite) 1 MG tablet, Take 1 (one) tablet by mouth once daily, Disp: , Rfl: gabapentin (Neurontin) 600 MG tablet, Take 1 (one) tablet by mouth 3 times daily, Disp: , Rfl: guaiFENesin (Robitussin) 100 MG/5ML solution, Take 10 mL by mouth every 6 hours as needed for Cough, Disp: 180 mL, Rfl: 0 lidocaine (Lidoderm) 5 % patch, Apply 2 (two) patches to skin every 24 hours Apply patch to most painful area and remove after 12 hours. May reapply a new patch 12 hours later., Disp: 12 patch, Rfl: 2 Methotrexate Sodium (methotrexate, PF,) 50 MG/2ML injection, Inject 1 mL subcutaneously every 7 days for 90 days Inject 1 mL every 7 days., Disp: 12 mL, Rfl: 0 omeprazole (PriLOSEC) 40 MG capsule, Take 1 (one) capsule by mouth 2 times daily, before breakfast and supper, Disp: , Rfl: ondansetron (Zofran) 4 MG tablet, TAKE 1 TABLET BY MOUTH EVERY 6 HOURS NEEDED FOR NAUSEA OR VOMITING, Disp: 12 tablet, Rfl: 0 ondansetron, disintegrating, (Zofran ODT) 4 MG tablet, Take 1 (one) tablet by mouth every 6 hours as needed for Nausea/Vomiting Allow tablet to dissolve on the tongue, Disp: 13 tablet, Rfl: 3 polyethylene glycol 3350 (Miralax) 17 g packet, Take 17 (seventeen) g by mouth once daily, Disp: 30packet, Rfl: 0 propranolol (Inderal) 40 MG tablet, TAKE 1/2 TO 1 TABLET BY MOUTH TWICE DAILY NEEDED FOR ANXIETYOR PANIC, Disp: , Rfl: tofacitinib 24hr (Xeljanz XR) 11 MG tablet, Take 1 (one) tablet by mouth once daily, Disp: 90 tablet, Rfl: 3 TUBERCULIN SYR 1CC/25GX5/8 25G X 5/8 1 ML MISC, Use 1 Each every 7 days For weekly methotrexate subcutaneous injection., Disp: 100 Each, Rfl: 1 vitamin D, ergocalciferol, (Drisdol) 1.25 MG (31254 UT) capsule, Take 1 (one) capsule by mouth every 7 days, Disp: , Rfl: Allergies Allergen Reactions Ibuprofen GI Discomfort and Unknown Nsaids Vomiting Tramadol Unknown Amitriptyline Nausea and/or Vomiting Morphine Headache, Nausea and/or Vomiting and Unknown Reaction: HEADACHE Promethazine Unknown and Swelling Unknown LOCAL REACTION Past Medical History: Diagnosis Date Chiari malformation type II (HCC) 2010 Concussion 02/22/2024 Endometrial cancer (HCC) Endometriosis 1994 Fibromyalgia 2010 H/O reduction mammoplasty H/O scarlet fever 02/21/1986 History of cholecystectomy 02/21/2002 History of partial hysterectomy 03/24/2006 History of reduction mammoplasty 11/21/2001 History of shingles Immunocompromised due to corticosteroids (HCC) 12/27/2022 Relapsing polychondritis 10/2022 Rheumatoid arthritis ([facility]) Traumatic injury of ankle with fracture of talus 09/27/2017 Uterine cancer (HCC) 2005 Past Surgical History: Procedure Laterality Date Brain Surgery/Procedure 2009 Breast Reduction 2002 Cholecystectomy 2002 HYSTEROSCOPY 2006 partial LAPAROSCOPY Social History Socioeconomic History Marital status: Single Tobacco Use Smoking status: Former Current packs/day: 0.00 Types: Cigarettes Quit date: 02/21/2015 Years since quittin.2 Smokeless tobacco: Never Vaping Use Vaping status: Every Day Start date: 03/24/2015 Substance and Sexual Activity Alcohol use: Not Currently Drug use: Yes Frequency: 7.0 times per week Types: Marijuana Sexual activity: Yes Partners: Male Family History Problem Relation Name Age of Onset Cancer - Uterine Sister 38 Physical Exam: BP 122/81 (BP Location: Left arm, Patient Position: Sitting, BP Cuff Size: Adult) Pulse (!) 110 Temp 97.3 ??F (36.3 ??C) (Oral) Ht 1.575 m (5' 2.01 ) Wt 83 kg (183 lb) LMP (LMP Unknown) BMI 33.46 kg/m?? GENERAL: NAD HEENT/NECK: White sclerae. Ext ears normal, no erythema. No palpable masses. Swelling minimal. +tenderness with minimal signs of redness on nose. CHEST/LUNGS: Normal work of breathing, CTAB. CARDIOVASCULAR: Regular rhythm, crisp S1/S2, slight systolic murmur on inhalation. Ext WWP. No FABIAN. ABDOMEN: S/ND/NT. SKIN/NAILS: no erythema on ears, slight redness still present on nose. PSYCH: Alert, appropriately interactive. NEURO: Sensation intact to soft touch. Normal muscle bulk and strength in trunk and limbs. MSK: No synovitis, dactylitis, or enthesitis. Tender MCPs and PIPs. Blisters improved, no pus, no rashes. Knee crepitus L> R. limited ROM of right knee. Labs: Reviewed, including those as noted below Recent Labs Component Name 02/20/24 1603 02/16/24 0354 02/14/24 1802 01/09/24 1422 12/19/23 0142 12/18/23 0120 12/17/23 0449 12/16/23 1034 12/07/23 1407 11/11/23 1109 10/14/23 1139 06/09/23 1202 05/04/23 1006 03/28/23 1349 WBC 9.4 12.8* 9.6 10.2 12.3* 12.3* 8.4 11.0* 11.2* 8.8 10.2 8.7 - 10.7 NEUTABS - - - - - - - - 9.18* 5.84 6.12 5.28 - 8.57* 9.09* LYMPHABS 0.96* - 1.11 0.9 - - - 1.09 1.30 2.08 3.08 2.62 - 1.18 HGB 12.8 12.5 14.1 14.2 12.3 12.7 12.6 13.0 13.3 13.6 13.8 13.4 - 10.1* MCV 93.2 92.7 91.6 94 92.6 90.9 91.1 90.6 90.0 88.1 87.1 98.7* - 113.2* RDWCV 14.6 14.9* 14.9* - 14.6 14.5 14.7 14.3 14.0 13.8 14.2 13.4 - 21.8* PLTCOUNT 206 211 253 248 182 204 167 205 184 211 208 174 - 279 - = values in this interval not displayed. Recent Labs Component Name 02/20/24 1603 02/16/24 0354 02/14/24 1802 01/09/24 1422 12/19/23 0142 12/18/23 0120 12/17/23 0449 12/16/23 1034 12/07/23 1407 05/05/23 1237 BUN 6 14 13 12 13 10 - 12 13 13 CREATININE 0.76 0.68 0.77 0.70 0.78 0.65 - 0.67 0.72 0.63 EGFR >90 >90 >90 110 >90 >90 - >90 >90 >90 AST 51* - 50* 48* - - - 24 24 20 ALT 144* - 56* 75* - - - 32 44 20 - = values in this interval not displayed. Imaging/ Other studies: 08/25/22 CT neck 1. Mild hypertrophy of lingual tonsils is a/accessory salivary gland at the base of tongue. 2. A 13 mm nodule of right lobe of thyroid is incidentally identified. Consider thyroid sonography for further evaluation as outpatient. 3. Otherwise unremarkable study. There is no visible mass on this nonenhanced study. 03/11/23: Echo Left Ventricle: Left ventricle size is normal. Normal wall thickness. Normal systolicfunction. EF by 2D Aguero biplane is 62%. Normal wall motion. Normal diastolic function. Normal RV size and systolic function. No significant valvular abnormalities. Normal atria. Normal IVC and visualized portion of aorta. Assessment/Plan: # Mood disorder # Fibromyalgia # Multiple barriers to care Social factors. Lack of transportation. Familial stressors. Pt stopped her duloxetine as it was making her more aggressive. Multiple no shows. Drug seeking behavior. - on Lyrica and Valium through Psychiatrist Se Purdy. # Relapsing Polychondritis Onset 2020. Diagnosis supported by multiple episodic regions of painful, erythematous chondritis (nose, ears sparing lobe, fingers), left-sided hearing loss, laryngotracheal symptoms, arthritis. KEVAN 1:40. ENT appt 12/11 with flex laryngoscopy showing no stenosis or lesions. Will hold off on biopsy as not necessary currently to confirm diagnosis. Prior/current therapy: prednisone (July 2022-present now 10 mg PRN), MTX 25mg IV weekly with folic acid (stopped 02/12 once CYC was started-restarted 08/14), Dapsone 100 mg daily (01/13-06/14), PO CYC (stopped by pt earlier in 2023 due to recurrent infections and saddale anesthesia), infliximab infusions IV 10 mg/kg W0 (12/29), W2 (01/17), MMF (stoppeddue to lack of efficacy), Actemra 8 mg/kg (stopped 12/14 due to swelling of the face). Complicated by diffuse pain syndrome (hx of fibromyalgia), pt still endorsing severe pain. Status: Improved. - Stopped prednisone on 03/15/24. - Continue Xeljanz 11 mg daily. Previous extensive discussion on risks vs benefits (including risksof CV disease, sudden , DVT/PE, lymphomas, and infection discussed). Improved on Xeljanz. - Continue SC MTX 25 mg weekly + 1 mg folic acid but need labs today before any further refills dueto prior elevated LFTs. - will avoid any further opiods. - PFT, spirometry needs to be scheduled. Pt has cancelled several times. - Audiometry appt referral, pt has no showed or cancelled several times - ENT following, no signs of tracheal issues on their exam - Optho following # Episcleritis OS. - topical diclofenac prescribed #. Drug Toxicity Monitoring - CBC/diff and CMP monthly. #. Immunosuppression due to drug therapy - Latent infection screen: Hep neg 12/13 and TB Quant neg 12/13 - Immunizations per PCP: for all patients on immunosuppressive therapy we recommend annual influenza vaccine, COVID19 vaccine, Prevnar, Pneumovax, Shingrix. - Patient advised to contact clinic in case of any infections or antibiotic use. This patient was seen and staffed with attending . Álvaro Barnett MD Rheumatology Fellow [facility] Immunization History Administered Date(s) Administered Covid Moderna primary monovalent 12+ yr 0.5mL 03/07/2020, 04/04/2020 INFLUENZA VACCINE, QUADR. (AFLURIA, FLUZONE QUADRIVALENT; 6MO+) (IIV4) 12/29/2021 TDAP, HISTORIC VACCINE 03/27/2014 Associated attestation - Mario Huffman MD - 05/30/2024 1:46 PM CDT Rheumatology Attending Attestation: Date of Service: 05/30/24 I have seen and examined the patient with the fellow and I agree with the findings and plan of careas documented by the fellow. Encounter Diagnoses: 1. Relapsing polychondritis 2. Chondritis of both external ears 3. Seronegative rheumatoid arthritis (HCC) 4. Immunosuppression due to drug therapy (HCC) #. Seronegative Rheumatoid Arthritis History of failure with methotrexate, tocilizumab, infliximab. She has had a good response to Tofacitnib. - Continue Methotrexate - Continue Tofacitinib, submitting urgent PA #. Transaminitis Overdue for lab monitoring. - Counseling provided, recommended labs today but patient says she does not want to wait and will go sometime this week. #. Relapsing Polychondritis, Treatment-Resistant Onset ~2021. (A) Phenotype: b/l ear chondritis, nasal chondritis, b/l otitis media, inner ear involvement (hearing loss), appendicular arthritis, laryngotracheitis, costochondritis, episcleritis. Not VEXAS (XX, MCV <100, PLT >200). TTE 03/11/23 w/o valvulopathy. See Media 09/29/22 at 12:06, and 09/13/22 at 13:37 and 13:23. (B) MedHx: Methotrexate 25 mg SC weekly (Fall 2022 to August 2023, mild efficacy), Mycophenolate 1500mg PO BID (August 2023 - Oct 2023; no efficacy, worse than MTX), Prednisone 10-50 mg/d (2021 to Feb 2024), Infliximab 10 mg/kg (12/29/22 - Oct 2023; PMIDs [id number], [id number]), Cyclophosphamide 150 mg PO daily (~1.75 mg/kg; very efficacious, Jan 2023 to Apr 2023), Tocilizumab (Oct 2023, compelling allergic reaction after first infusion), Tofacitinib 11 mg PO daily (12/28/23 - current). (C) Status: low disease activity (D) Plan - Continue MTX 25 mg SC weekly - Continue Tofacitinib 11 mg daily - If signs of flares, recommend urgent clinic visit, we will accommodate #. Drug Toxicity Monitoring (MTX, Tofacitinib) - Monitoring CBCd/CMP q2m - Folic acid 1 mg daily #. Fibromyalgia #. Mood Disorder Contributing to diffuse pain syndrome. Duloxetine was a/w aggression. On pregabalin 150 mg PO BID. Defer to her psychiatrist (Se Purdy [phone]) #. H/o CYC - urine cytology q6-12m (last 01/09/24) Risks and benefits of management plan reviewed, patient agreed to therapy, all of the patient's questions were answered. RV in clinic ~3m Additional contributions to medical decision making for today's encounter: The patient is on drug therapy requiring intensive monitoring for toxicity. I reviewed the patient's chart including review of clinical notes, laboratory results, and imaging results. I educated the patient regarding risks and benefits of the management plan, their medical problems, and contingency plans for worsening symptoms. Total time spent reviewing records, conducting interview and physical, counseling, care coordination, placing any orders for investigative studies and/or medications, and documentation on the day of the encounter: 40+ minutes. This visit involved the longitudinal management of multiple chronic conditions requiring ongoing assessment, treatment adjustments, and coordination of care. Given the complexity of the patient's medical history and the interplay between conditions, significant cognitive effort was required to evaluate therapeutic options, assess medication interactions, and develop an individualized care plan. Acomprehensive discussion was conducted to address risk stratification, disease trajectory, and long-term treatment goals, incorporating shared decision-making to optimize outcomes. The complexity of today's visit extends beyond the standard E/M service, reflecting the inherent challenges of managing chronic conditions in a patient-centered, longitudinal manner. Mario Huffman MD, FACP, FACR Director, Rheumatology Fellowship Program Department of Internal Medicine [facility] Medicine Encounter Orders and Future Appointments: Orders Placed This Encounter CBC WITH DIFFERENTIAL COMPREHENSIVE METABOLIC PANEL AMB REFERRAL TO PAIN CLINIC diclofenac 0.1% (Voltaren) 0.1 % ophthalmic solution Future Appointments Date Time Provider Department Center 07/02/2024 5:30 PM [facility] MRI SCANNER 2 3T [facility] documented in this encounter Plan of Treatment Upcoming Encounters Date Type Department Care Team (Late st Contact Info) Description 07/02/2024 5:30 PM CDT Appointment [facility] MRI [address] [place] [address] Karl Miller MD [address] DEPT [place] [address] Scheduled Orders Name Type Priority Associated Diagnoses Orde r Schedule CBC WITH DIFFERENTIAL Lab Routine 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 Seronegative rheumatoid arthritis (HCC) Immunosuppression due to drug therapy (HCC) 1 Occurrences starting 05/30/2024 until 05/30/2025 COMPREHENSIVE METABOLIC PANEL Lab Routine 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 Seronegative rheumatoid arthritis (HCC) Immunosuppression due to drug therapy (HCC) 1 Occurrences starting 05/30/2024 until 05/30/2025 Scheduled Referrals Name Type Priority Associated Diagnoses Orde r Schedule AMB REFERRAL TO PAIN CLINIC Outpatient Referral Routine 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 Seronegative rheumatoid arthritis (HCC) Immunosuppression due to drug therapy (HCC) Expected: 05/30/2024, Expires: 05/30/2025 documented as of this encounter Visit Diagnoses Diagnosis Relapsing polychondritis- Primary Other disorders of bone and cartilage Chondritis of both external ears Chondritis of pinna Seronegative rheumatoid arthritis (HCC) Rheumatoid arthritis Immunosuppression due to drug therapy (HCC) documented in this encounter Care Teams Insulation Applicator Relationship Specialty Start Date End Date Santos Nguyen MD [address] [facility] [address] [place] [address] PCP - General 01/08/22 Vinod Zuñiga MD [address] [place], [place] [id number] Obstetrics and Gynecology 09/01/21 Ulysses Higgins MD [address] [place] [address] Orthopedic Surgery 05/10/22 documented as of this encounter
--- OUTSIDE RECORDS SUMMARY | 2024-05-30 17:11 | XMS_ITS ---
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 relapsing polychondritis still on systemic steroid Rx now on moderate dose SC MTX for steroid sparing effect. Assessment & Plan (10/26/2022 11:46 AM CDT): Working Dx of ? relapsing polychondritis still [...] bleeding and left SI regional pain. Methotrexate, care home, current use 09/17/2022 Assessment & Plan (09/17/2022 10:07 AM CDT): The patient has been counseled on risks [...] effects including liver injury such as cirrhosis. Primary fibromyalgia syndrome 08/13/2022 Overview (08/13/2022): Strongly suspect a fibromyalgia syndrome (at least for some symptoms) and will try low dose duloxetine w/ dose titration if needed and tolerated. Polyarthralgia 07/29/2022 Overview (07/29/2022): Uncertain nature of polyarthralgia which may or may not represent a fibromyalgia syndrome but still would consider SLE/UCTD or autoinflammatory disorder. Assessment & Plan (08/04/2022 12:57 AM CDT): Per Dr Singleton 07/29/2022. Uncertain nature of [...] UA pending - Continue home Celebrex BID, [place] 5 PRN for moderate pain, Dilaudid PRN severe Positive KEVAN (antinuclear antibody) 1-40 homogen eous 07/29/2022 Overview (07/29/2022): Low positive nonspecific KEVAN result although w/o ACR criteria for an SLE diagnosis however unable to explain ongoing fevers and alopecia. Check AVISE testing. 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 Also takes Adderall for ADHD but worsens anxiety symptoms; use propranolol PRN for cardiac side effects from adderall. - Continue Valium 5 mg QD PRN - Hold adderall, propranolol. Lumbago with sciatica, right side 02/25/2020 Chronic headache disorder 01/08/2014 Status post craniectomy 09/04/2009 Chiari malformation type I 02/20/2009 Endometrial cancer 03/24/2006 Squamous cell carcinoma of cervix 03/24/2006 Current Oncology Plans No current plan information found. Other Current Plans INFLIXIMAB-ABDA (RENFLEXIS) THERAPY PLAN* Plan Start Date:12/22/2023 Plan Provider:Álvaro Barnett MD Linked Problems Relapsing polychondritis Treatment Medications No medications scheduled. Past Plans Radiation Treatments * No radiation treatments are documented for this patient in [facility]. Treatments may have been administered in another system. Lifetime Dose Tracking * Chemical Lifetime Dose Automatic Entry Manual Entr y Dose Length Product 1,088.72 mGy-cm 1,088.72 mGy-cm 0 mGy-cm Resolved Problems Problem Noted Date Diagnosed Date Resolved Date Pain in both lower extremities 02/15/2024 04/24/2024 Right leg pain 02/15/2024 04/24/2024 At risk for sexually transmi tted disease due to unprotected sex 02/15/2024 04/24/2024 Rib pain 12/16/2023 04/24/2024 Chest pain, unspecified type 12/16/2023 03/16/2024 Facial cellulitis 12/16/2023 04/24/2024 Hypoxia 03/10/2023 03/16/2024 Left arm pain 03/10/2023 04/24/2024 Recurrent AOM (acute otitis media) 12/27/2022 12/27/2022 Immunocompromised due to corticosteroids 12/27/2022 04/24/2024 Throat soreness 12/21/2022 04/24/2024 Change in nail appearance 08/13/2022 Overview (08/13/2022): May represent onychomycosis and less likely psoriatic nail disease. Globus sensation 08/13/2022 04/24/2024 Overview (08/13/2022): Globus sensation of throat tightness and tongue swelling/enlargement and probably requires direct laryngoscopy. Diarrhea 08/04/2022 08/05/2022 Assessment & Plan (08/04/2022 12:54 AM CDT): Chronic, no blood, no abdominal pain. Patient reports some improvement with Bentyl. Likely related to history of cholecystectomy vs IBS given history. - continue Bentyl PRN - imodium ordered PRN - consider stool studies Body aches 08/03/2022 08/04/2022 Mass of left breast 07/16/2022 12/28/19 Bone necrosis 05/14/2022 12/27/2022 Intermittent fever 07/13/2021 Assessment & Plan (08/04/2022 12:51 AM CDT): Possible manifestation of possible autoimmune disease. COVID, rapid strep negative. +tender cervical area and report of sore throat without palpable LAD. No other evidence of infectious process on labs or history - monitor for fever - consider infectious workup - continue prednisone - Monospot ordered Anxiety 08/01/2020 08/04/2022 Hepatitis C infection 05/05/20202022 Traumatic injury of ankle wi th fracture of talus 09/27/2017 04/24/2024 History of shingles 02/21/2015 12/28/19 23 Rheumatoid arthritis 02/21/2013 023 History of partial hysterectomy 03/24/2006 12/27/2022 History of cholecystectomy 02/21/2002 1 02/26/2022 History of reduction mammoplasty 11/21/2001 12/27/2022 H/O scarlet fever 02/21/1986 12/27/2022 12/27/2022
--- OUTSIDE RECORDS SUMMARY | 2024-05-30 17:11 | XMS_ITS | Encounter Summary ---
Author Organization [facility] Address [address] [facility] [place] [address] Care Team Providers Care Drawer In Jacquard Loom Name Role Phone Vinod Zuñiga MD Unavailable [phone] Santos Nguyen MD Primary Care Provider [phone] Ulysses Higgins MD Unavailable [phone] Encounter Details Date Type Department Care Team (Latest Contact Info) Description 05/30/2024 Travel Social History Tobacco Use Types Packs/Day Years [...] Recorded Patient Health Questionnaire-2 Score 0 04/24/2024 [facility] [place] of Occupat ional Health - Occupational Stress [...] place to sleep or slept in a skilled nursing (including now)? No 02/02/2023 Sex and Gender [...] Upcoming Encounters Date Type Department Care Team (David quinones Contact Info) Description 07/02/2024 5:30 PM CDT Appointment [facility] [address] [place] [address] Karl Miller MD [address] [facility] 2L [place] [address] documented as of this encounter Visit Diagnoses Not on filedocumented in this encounter Care Teams Drawer In Jacquard Loom Relationship Specialty Start Date End Date Santos Nguyen MD [address] [facility] [address] [place] [address] PCP - General 01/08/22 Vinod Zuñiga MD [address] [place] [address] Obstetrics and Gynecology 09/01/21 Ulysses Higgins MD [address] [place] [address] Orthopedic Surgery 05/10/22 documented as of this encounter
--- OUTSIDE RECORDS SUMMARY | 2024-05-30 17:11 | XMS_ITS | Encounter Summary ---
Author Organization [facility] Address [facility] [place] [address] Care Team Providers Care Tuber Machine Operator Name Role Phone Nate Arteaga MD Primary Care Provider [phone] Santos Nguyen MD Primary Care Provider [phone] Encounter Details Date Type Department Care Team (Late st Contact Info) Description 07/13/2021 [employer] Message Enc [facility] Orthopedic & Sports Medicine - [place] [address] [place] [address] Darío Sanchez MD [address] [place] [address] [place] Social History Tobacco Use Types Packs/Day Years Used Date Smoking Tobacco: Former Cigarettes Q uit: 2000 Smokeless Tobacco: Never Alcohol Use Standard Drinks/Week [...] AM CDT Sexual Orientation Not on file documented as of this encounter Plan of Treatment Not on file documented as of this encounter Visit Diagnoses Not on filedocumented in this encounter Additional Health Concerns Infection Onset Date Last Indicated Resolved Time COVID-19 Rule Out 11/24/2021 11/24/2021 11/24/2021 4:26 PM CDT documented as of this encounter Care Teams Tuber Machine Operator Relationship Specialty Start Date End Date Nate Arteaga MD [address] [place] [address] PCP - General INTERNAL MEDICINE 02/28/20 12/31/21 Santos Nguyen MD [address] [facility] [address] [place] [address] PCP - General FAMILY PRACTICE 01/01/22 documented as of this encounter
--- OUTSIDE RECORDS SUMMARY | 2024-05-30 17:11 | XMS_ITS | Encounter Summary ---
Author Organization [facility] Address [address] [facility] [place] [address] Care Team Providers Care Casino Banker Name Role Phone Vinod Zuñiga MD Unavailable [phone] Santos Nguyen MD Primary Care Provider [phone] Ulysses Higgins MD Unavailable [phone] Encounter Details Date Type Department Care Team (Late st Contact Info) Description 05/25/2024 Orders Only [facility] - Rheumatology [address] [facility] [place] [id number] Álvaro Barnett MD [address] [place] [address] Relapsing polychondritis; Therapeutic drug monitoring; Immunosuppression due to drug therapy (HCC); Chondritis of both external ears Social History Tobacco Use Types Packs/Day Years [...] Recorded Patient Health Questionnaire-2 Score 0 04/24/2024 [facility] of Occupat ional Health - Occupational Stress [...] place to sleep or slept in a nursing home (including now)? 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
--- OUTSIDE RECORDS SUMMARY | 2024-05-30 17:11 | XMS_ITS | Encounter Summary ---
Author Organization [facility] Address [address] [facility] [place] [address] Care Team Providers Care Director Supply Chain Name Role Phone Vinod Zuñiga MD Unavailable [phone] Santos Nguyen MD Primary Care Provider [phone] Ulysses Higgins MD Unavailable [phone] Reji Mancuso [facility] [place] [phone] Brunilda Hoff [facility] NURSE Unavailable [phone] Reji Mancuso [facility] [place]available [phone] Jennifer Patel RN Unavailable [phone] Reji Mancuso [facility] Unavailable [phone] Reason for Visit * Reason Onset Date Comments MEDICATION REFILL 12/14/2022 Encounter Details Date Type Department Care Team (Late st Contact Info) Description 12/14/2022 Refill [facility] - Rheumatology [address] [facility] [place] [address] José Miguel Singleton DO [address] [facility] [address] [place] [address] MEDICATION REFILL Social History Tobacco [...] encounter Miscellaneous Notes * Telephone Encounter - José Miguel Singleton DO - 12/14/2022 4:13 PM CDT Limited oxycodone-APAP was recently prescribed but without intention of needing to take it routinely every 6 hours and I prefer not to rely on ongoing continued opiate pain medication. May require assistance with a chronic pain medicine specialist to determine (and prescribe any additional opiate Rx) if needed. * Telephone Encounter - Jose Elias Tang RN - 12/14/2022 3:29 PM CDT Patient chart, labs and allergies reviewed and medication sent to provider due to being controlled substance. NON-BIOLOGIC REFILL REQUEST Last OV: 12/07/2022 Next Appointment: 01/04/2023 Last Fill: 12/07/2022 Recent Labs Component Name 08/26/22 1555 08/25/22 1623 08/04/22 0552 WBC 7.7 8.9 10.8* HGB 12.5 13.1 12.1 PLTCOUNT 207 307 247 MCV 85.9 91.9 88.9 Recent Labs Component Name 08/26/22 1555 08/25/22 1623 08/05/22 0703 08/04/22 0552 CREATININE 0.56 0.83 0.63 0.69 BUN 7 7 15 11 SODIUM - 135* 139 138 POTASSIUM 3.1* 4.0 3.8 3.2* Recent Labs Component Name 08/26/22 1555 08/25/22 1623 08/05/22 0703 EGFR >90 90 >90 Recent Labs Component Name 08/26/22 1555 08/25/22 1623 08/03/22 1741 11/18/21 1419 AST 13 16 17 20 ALT 14 11 17 27 ALKPHOS 66 53 76 89 TBIL - 0.5 0.3 0.4 No results for input(s): BNHCQBOQ94SD in the last 97968 hours. No results for input(s): URICACID in the last 31795 hours. Last ESR: Recent Labs Component Name 08/04/22 1417 SEDRATE 5 Last 3 CRP: Recent Labs Component Name 08/04/22 1417 CRP <0.20 documented in this encounter Plan of Treatment Upcoming Encounters Date Type Department Care Team (Late st Contact Info) Description 07/02/2024 5:30 PM CDT Appointment [facility] [address] [place] [address] Karl Miller MD [address] [place] [address] documented as of this encounter Visit Diagnoses Diagnosis Knee osteonecrosis, left (HCC) Aseptic necrosis of other bone site Chronic pain of left knee Pain in joint, lower leg documented in this encounter Additional Health Concerns Infection Onset Date Last Indicated Resolved Time COVID-19 Under Investigation 03/10/2023 03/10/2023 03/10/2023 6:40 PM WELCOME CENTER AGENT COVID-19 Under Investigation 12/16/2023 12/16/2023 12/16/2023 11:15 AM CDT documented as of this encounter Care Teams Director Supply Chain Relationship Specialty Start Date End Date Santos Nguyen MD [address] [facility] [address] [place] [address] PCP - General 01/08/22 Vinod Zuñiga MD [address] [place] [address] Obstetrics and Gynecology 09/01/21 Ulysses Higgins MD [address] [place] [address] Orthopedic Surgery 05/10/22 Reji Mancuso LMSW Outpatient Tank Tester Care Management 02/07/23 Brunilda oHff MSW Tank Tester 02/07/23 02/15/23 Reji Mancuso LMSW Outpatient Tank Tester Care Management 03/18/2302/22 Jennifer Patel RN [address] [place] [id number] Assisted Living Nursing DirectorGroundwater Consultant 12/20/23 02/10/24 Reji Mancuso LMSW Tank Tester Care Management 02/17/24 02/21/24 documented as of this encounter
--- OUTSIDE RECORDS SUMMARY | 2024-05-30 17:11 | XMS_ITS | Continuity of Care Document ---
Author Organization [facility] Address [address] [place] [address] Phone Care Team Providers Care Bridge Crew Member Name Role Phone Doser DPM DPM, Dayne Unavailable Unavailab le Allergies, Adverse Reactions, Alerts Substance Reaction Status Criticality No Known Allergies Active No Inform ation Medications Medication Instructions Dosage Effective Dates (start - stop) Status Comments methylprednisolone 4 mg tablets in a dose pack take by oral route as directed per package instructions for Pain 0.00 - Active Percocet 5 mg-325 mg tablet take 1 tablet by oral route every 6 hours as needed for Pain 1.00 tablet - Active meloxicam 7.5 mg tablet take 1 tablet by oral route every 12 hrs pc prn - Active Procedures Procedure Date X-ray exam ankle, minimum 3 views Office/outpatient visit,est, mod 2022 X-ray exam ankle, minimum 3 views Global/Postop followup visit X-ray exam ankle, minimum 3 views Global/Postop followup visit X-ray exam knee, 1 or 2 views Office/outpatient visit,est, mod 2021 Knee Hinged [facility] B[facility] MRI lower extrm joint, w/o contrast X-ray exam ankle, minimum 3 views Office/outpatient visit,est, mod 2021 Integrity Walker Air Short Med All Sizes Walker, Adult, folding adjust/fixed MRI Upper extr joint, w/o contrast X-ray exam knee, 3 views Office/outpatient visit,est, mod 2021 Knee Hinged [facility] Breg X-ray exam ankle, minimum 3 views X-ray exam foot, minimum 3 views 2021 Office/outpatient visit,new, mod 2021 Clsd Tx Talus Fx Inject tndn sheath/lgmnt/gangl cyst Cast Supplies, Short Leg, Adult, Fibergl ass Advance Directives Directive Yes / No Effective Date File Name No Information Encounters Encounter Description Practice Location Reason(s) For Visit Diagnoses Date Provider Providers Copied on Encounter Office/outpat ient visit,est, mod [facility], [address], [id number], tel:[phone] [facility] right ankle (chief complaint) Pain in right footTarsal tunnel syndrome, right lower limb 3 Doser DPM Dayne. [address] [address], [place], [place], [id number] , [place]. tel: [phone] [facility], [address], [id number], [place] tel:[phone] [facility] Pain in right footContusion of right foot, initial encounter 2 Doser DPM Dayne. [address] [address], [place], [place], [id number] , [place]. tel: [phone] [facility], [address], [id number], [place] tel:[phone] [facility] right ankle pain (chief complaint) Pain in right footFx of right talus, initial encounter for closed fx 2 Doser KATERIN Oscar. [address] [facility], [facility] [address], [place], [place], [id number] , [place]. tel:[phone] Office/outpat ient visit,est, [facility], [address] [facility] [address], [place], [place], [id number], [place] tel:[phone] [facility] left knee (chief complaint) Pain in left knee Sep-1 2 Balaji Kunal er. [address] [facility], [facility] [address], [place], [place], [id number] , [place]. tel:[phone] [facility], [address] [address], [place], [place], [id number], [place] tel:[phone] [facility] No Information Sep-1 2 Balaji Kunal er. [address] [facility], [facility] [address], [place], [place], [id number] , [place]. [phone] [facility], [address] [address], [place], [place], [id number], [place] tel:[phone] [place] [address] Pain in right foot Sep-0 2 [facility]. [address] [facility], [address], [place], [place], [id number] , [place]. [phone] Referring Provider: Dayne Tavares, [address] [facility] [address], [place], [address] . tel:[phone] Office/outpat ient visit,est, [facility], [address] [facility] [address], [place], [place], [id number], [place] tel:[phone] [facility] right ankle (chief complaint) Pain in right footFx of right talus, initial encounter for closed fxContusion of right foot, initial encounter Sep-0 2 Doser KATERIN Oscar. [address] [facility], [facility] [address], [place], [place], [id number] , [place]. [phone] [facility], [address] [place] [address], [id number], [place] tel:[phone] [facility] No Information Sep-0 2 Marv Holland. [address] [place] [address], [place], [place], [id number] , [place]. [phone] [facility], [address] [place] [address], [place], [place], [id number], [place] tel:[phone] [facility] No Information Sep-0 2 Marv Holland. [address] [place] [address], [place], [place], [id number] , [place]. [phone] [facility], [address] [place] [address], [place], [place], [id number], [place] tel:[phone] [facility] Pain in right foot Sep-0 2 Doser DPRiddhi Oscar. [address] [place] [address], [place], [place], [id number] , [place]. [phone] [facility], [address] [place] [address], [id number], [place] tel:[phone] [facility] Pain in left knee Sep-0 2 [facility]. [address] [place] [address], [address] , [place], [place], [id number] , [place]. tel:[phone] Referring Provider: Skyler Pereira, [address] [place] [address] [address], [place], [address] . tel:[phone] Office/outpat ient visit,est, mod [facility], [address] [place] [address], [place], [place], [id number], [place] tel:[phone] [facility] left knee (chief complaint) Pain in left kneeSprain of medial collateral ligament of left knee, initOth tear of medial meniscus, current injury, left knee, init 2 Marv Holland. [address] [place] [address], [address], [place], [place], [id number] , [place]. tel:[phone] Office/outpat ient visit,new, mod [facility], [address], [place], [place], [id number], [place] tel:[phone] [facility] RIGHT ANKLE (chief complaint) Pain in right footContusion of right foot, initial encounterFx of right talus, initial encounter for closed fx Doser KATERIN Oscar. [address] [facility], [facility] [address], [place], [place], [id number] , [place]. tel: [phone] Family History Family Member Type Diagnosis Age At Onset No Information Payers Payer name Insurance type Covered democrat ID Mayi mercer(s) Jamie Grimaldo [facility] [id number] Social History Type Description Quantity Date Captured Comments Alcohol Use Details Caffeine Use Details Unknown Tobacco Use Status Cigarette smoker Smoking Status Current some day smoker 023 Sex Female Chief Complaint And Reason For Visit From encounter dated '03/11/2022 13:15'. right ankle (chief complaint) Reason For Referral Reason For Referral No Information Plan Of Treatment Date Type Action Status Referral Ordered: X-ray exam knee, 1 or 2 views LT knee ordered Referral Ordered: MRI lower extrm joint, w/o contrast RT Appointment date/timeframe: 10/29/2021 ordered Referral Ordered: MRI lower extrm joint, w/o contrast LT knee Appointment date/timeframe: 10/22/2021 ordered Referral Ordered: X-ray exam knee, 3 views LT ordered Referral Ordered: X-ray exam foot, minimum 3 views RT ordered History Of Present Illness Encounter Date Complaint History Of Prese nt Illness right ankle right ankle pain left knee Yvonne is a 41 ye ar-old female who presents to the office for evaluation of left knee pain. right ankle left knee Yvonne presents t o the office for left knee complaints. RIGHT ANKLE Functional Status Date Functional Assessmen t No Information Instructions Date Instruction Additional Infor marshall No Information Assessments Type Assessment Date assessment Pain in right foot assessment Tarsal tunnel syndrome, right lo wer limb Patient Care Teams Name Effective Dates (start - stop) Status Members No Information
--- OUTSIDE RECORDS SUMMARY | 2024-05-30 17:11 | XMS_ITS | Encounter Summary ---
Author Organization [facility] Address [address] [facility] [place] [address] Care Team Providers Care Collar Setter Name Role Phone Vinod Zuñiga MD Unavailable [phone] Santos Nguyen MD Primary Care Provider [phone] Ulysses Higgins MD Unavailable [phone] Jennifer Patel RN Unavailable [phone] Reji Mancuso [facility] Unavailable [phone] Reason for Visit * Reason Onset Date Comments Appointment 11/14/2023 Encounter Details Date Type Department Care Team (Late st Contact Info) Description 11/14/2023 Telephone [facility] - Centralized Scheduling [facility] [place] [address] Karl Miller MD [address] [place] [address] Appointment Social History Tobacco Use Types Packs/Day [...] Recorded Patient Health Questionnaire-2 Score 0 03/18/2023 [facility] Occupat ional [facility] - Occupational Stress [...] place to sleep or slept in a care home (including now)? No 02/02/2023 Sex and [...] encounter Miscellaneous Notes * Telephone Encounter - Andra Platt - 11/14/2023 12:17 PM CDT Ears,nose and thoat are inflammed and is patient is requesting a sooner appt. documented in this encounter Plan of Treatment Upcoming Encounters Date Type Department Care Team (Late st Contact Info) Description 07/02/2024 5:30 PM CDT Appointment [facility] [address] [place] [address] Karl Miller MD [facility] [place] [address] documented as of this encounter Visit Diagnoses Not on filedocumented in this encounter Additional Health Concerns Infection Onset Date Last Indicated Resolved Time COVID-19 Under Investigation 12/16/2023 12/16/2023 12/16/2023 11:15 AM CDT documented as of this encounter Care Teams Collar Setter Relationship Specialty Start Date End Date Santos Nguyen MD [address] [facility] [address] [place] [address] PCP - General 01/08/22 Vinod Zuñiga MD [address] [facility] [address] [place] [id number] Obstetrics and Gynecology 09/01/21 Ulysses Higgins MD [address] [place] [address] Orthopedic Surgery 05/10/22 Jennifer Patel RN [address] [facility] [address] [place] [id number] Clothes DesignerBlending Technician 12/20/23 02/10/24 Reji Mancuso LMSW Sound Recording Technician Care Management 02/17/24 02/21/24 documented as of this encounter
--- OUTSIDE RECORDS SUMMARY | 2024-05-30 17:11 | XMS_ITS | Clinical Summary ---
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 cystic or solid mass in the visualized left breast. Physical examination performed by Dr. Camelia Mcdowell does not reveal a suspicious palpable abnormality at the patient's area of concern. Next, ultrasound evaluation of the right breast at the 2:00 position 4 cm the nipple and 3:00 position 4 cm from the nipple was performed to evaluate the additional area of concern. There is no suspicious cystic or solid mass in the visualized right breast. Santos Nguyen MD MAMMO ORDERABLES from Last 3 Months or Most Recently Relevant to Health Maintenance Advance Directives * Full Code (Latest Code Status on File) Date Activated Date Inactivated Comments 02/15/2024 8:38 AM 02/16/2024 4:29 PM * Full Code Date Activated Date Inactivated Comments 12/16/2023 12:58 PM 12/19/2023 3:49 PM * Full Code Date Activated Date Inactivated Comments 03/10/2023 1:55 AM 03/17/2023 4:21 PM * Full Code Date Activated Date Inactivated Comments 02/02/2023 11:00 PM 02/04/2023 1:51 PM * Full Code Date Activated Date Inactivated Comments 08/04/2022 1:00 AM 08/05/2022 4:06 PM Care Teams Veneer Drier Relationship Specialty Start Date End Date Santos Nguyen MD [address] [address] PCP - General 01/08/22 Vinod Zuñiga MD [address] [facility] [address] [place] [address] Obstetrics and Gynecology 09/01/21 Ulysses Higgins MD [address] [place] [address] Orthopedic Surgery 05/10/22
--- OUTSIDE RECORDS SUMMARY | 2024-05-30 17:11 | XMS_ITS | Encounter Summary ---
Author Organization [facility] Address [address] [facility] [place] [address] Care Team Providers Care Billet Grinder Name Role Phone Vinod Zuñiga MD Unavailable [phone] Santos Nguyen MD Primary Care Provider [phone] Ulysses Higgins MD Unavailable [phone] Reji Mancuso [facility] Unavailable [phone] Brunilda Hoff BOOKMOBILE DRIVER Unavailable [phone] Reji Mancuso [facility] Unavailable [phone] Jennifer Patel RN Unavailable [phone] Reji Mancuso [facility] Unavailable [phone] Encounter Details Date Type Department Care Team (Late st Contact Info) Description 02/04/2023 Ophth Exam [facility] - Ophthalmology [address] [place] [address] Len Navas MD [address] [place] [address] Social History Tobacco Use Types [...] Date Recorded Patient Health Questionnaire-2 Score 0 02/07/2023 [facility] of Occupat ional Health - Occupational Stress [...] deaf or have serious hearing difficult y? Yes 02/03/2023 Is person blind or have serious difficulty seein g? Yes 02/03/2023 Does person have serious dif ficulty walking/climbing stairs? No 02/03/2023 Does person have difficulty dressing/bathing? No 02/03/2023 Does person have difficulty doing errands alone? No 02/03/2023 Cognitive Status Response Date of Assessm ent Does person have difficulty concentrating/remembering/making decisions? No 02/03/2023 documented as of this encounter Plan of Treatment Upcoming Encounters Date Type Department Care Team (Late st Contact Info) Description 07/02/2024 5:30 PM CDT Appointment [facility] MRI [address] [place] [address] Karl Miller MD [address] DE[place] [address] documented as of this encounter Visit Diagnoses Not on filedocumented in this encounter Additional Health Concerns Infection Onset Date Last Indicated Resolved Time COVID-19 Under Investigation 03/10/2023 03/10/2023 03/10/2023 6:40 PM PLYWOOD PATCHER COVID-19 Under Investigation 12/16/2023 12/16/2023 12/16/2023 11:15 AM CDT documented as of this encounter Care Teams Billet Grinder Relationship Specialty Start Date End Date Santos Nguyen MD [address] [facility] [address] [place] [address] PCP - General 01/08/22 Vinod Zuñiga MD [address] [facility] [address] [place] [address] Obstetrics and Gynecology 09/01/21 Ulysses Higgins MD [address] [place] [address] Orthopedic Surgery 05/10/22 Reji Mancuso LMSW Outpatient Strategic Debriefing Specialist Care Management 02/07/23 Brunilda Hoff MSW Strategic Debriefing Specialist 02/07/23 02/15/23 Reji Mancuso LMSW Outpatient Strategic Debriefing Specialist Care Management 03/18/23 1/08/14 Jennifer Patel RN [address] [place], [place] [id number] Traveling Repair AccountantCrts 12/20/23 02/10/24 Reji Mancuso LMSW Strategic Debriefing Specialist Care Management 02/17/24 02/21/24 documented as of this encounter
--- OUTSIDE RECORDS SUMMARY | 2024-05-30 17:11 | XMS_ITS | Clinical Summary ---
Author Organization [facility] Address [address] [place] [address] Care Team Providers Care Horticultural Services Supervisor Name Role Phone Santos Nguyen MD Primary Care Provider [phone] Allergies Active Allergy Reactions Criticality Noted Date Comments Amitriptyline Nausea Only,Nausea and Vomiting Low 01/08/2014 Diazepam Unknown 01/12/2016 Per patient was also taking Tramadol that caused allergy Morphine And Codeine Vomiting 04/27/2017 Nsaids Other (see comment),Vomiting Low 01/08/2014 Stomach pain Promethazine Swelling,Unknown Medium 12/22/2012 LOCAL REACTION LOCAL REACTION Swelling Unknown LOCAL REACTION Unknown LOCAL REACTION Tramadol Unknown 06/23/2016 Medications gabapentin 600 MG tablet Take 1 tablet (600 mg total) by mouth 3 (three) times daily. 03/03/19 21 Active atorvastatin (LIPITOR) 40 MG tablet Take 1 tablet (40 mg total) by mouth daily. 10/01/19 22 Active propranolol (INDERAL) 40 MG tablet Take 1 tablet (40 mg total) by mouth 2 (two) times daily as needed for Anxiety. 11/10/19 22 Active folic acid (FOLVITE) 1 MG tablet Take 1 tablet (1 mg total) by mouth daily. 12/09/19 22 Active vitamin D2, ergocalciferol, (DRISDOL) 12121 UNITS capsule Take 1 capsule (50,000 Units total) by mouth once a week. 12/08/19 22 Active traZODone (DESYREL) 50 MG tablet Take 1 tablet (50 mg total) by mouth nightly as needed for Sleep. 12/09/19 22 Active famotidine (PEPCID) 40 MG tablet Take 1 tablet (40 mg total) by mouth daily. 10/08/19 22 Active omeprazole (PRILOSEC) 40 MG capsule Take 1 capsule (40 mg total) by mouth daily. 11/12/19 22 Active HYDROcodone-acetam inophen (NORCO) 10-325 MG tabletIndications: Acute Pain < 7 Day Supply Take 0.5-1 tablets by mouth every 6 (six) hours as needed for Pain. Indications: Acute Pain < 7 Day Supply 15 tablet 05/11/19 23 Active ondansetron (ZOFRAN-ODT) 4 MG disintegrating tablet DISSOLVE 1 TABLET ON THE TONGUE EVERY 6 HOURS NEEDED FOR NAUSEA OR VOMITING 02/18/20 22 Active dicyclomine (BENTYL) 10 MG capsule Take 1 capsule (10 mg total) by mouth 3 (three) times daily. 10/29/19 22 Active diazePAM (VALIUM) 5 MG tablet as needed. 05/09/19 23 Active amphetamine-dextro amphetamine (ADDERALL) 30 MG tablet Take 1 tablet (30 mg total) by mouth 2 (two) times daily. 05/01/19 23 Active oxyCODONE-acetamin ophen (PERCOCET) 5-325 MG tabletIndications: Acute Pain < 7 Day Supply Take 1-2 tablets by mouth every 6 (six) hours as needed for Pain. Indications: Acute Pain < 7 Day Supply 12 tablet 05/29/19 24 Active naloxone (NARCAN) 4 MG/0.1ML nasal spray 1 spray by Nasal route as needed for Opioid reversal. may repeat every 2 to 3 minutes in alternating nostrils until medical assistance becomes available 1 each 05/29/19 24 025 Active Problems Problem Noted Date Diagnosed Date Hepatitis C Infection 05/05/2020 Immunizations Name Administration Dates Next Due MODERNA COVID-19 (12+) MRNA, LNP-S, PF, 100 MCG/ 0.5 ML DOSE 04/04/2020,03/07/2020 Tdap (Adacel) 03/27/2014 Family History Medical History Relation Comments Asthma Daughter Mental Health Daughter Alcohol Abuse Father Liver Disease Father Arthritis Mother COPD Mother Depression Mother Mental Health Mother Relation Status Comments Daughter Alive Father (Age 52) cirrhisis Mother Alive Son 1 Alive Son 2 Alive Social History Tobacco Use Types Packs/Day Years Used Date Smoking Tobacco: Former Cigarettes Q uit: 02/21/1999 Passive Smoke Exposure: Past Smokeless Tobacco: Never Tobacco Cessation:Counseling Given: No Comments:Former, Quit 2015 Alcohol Use Standard Drinks/Week Comments Not Currently 0 (1 standard drink = 0.6 oz pur e alcohol) RARE PHQ-2 Answer Date Recorded Patient Health Questionnaire-2 Score 0 05/14/2022 Comments No Sex and Gender Information Value Date Recorded Sex Assigned at Not on file Legal Sex Female 11:36 PM CDT Gender Identity Female 05/14/2022 9:55 AM CDT Sexual Orientation Not on file Last Filed Vital Signs Vital Sign Reading Time Taken Comments Blood Pressure 117/78 05/29/2023 9:00 PM CDT Pulse 91 05/29/2023 7:00 PM CDT Temperature 36.7 C (98 F) 05/29/2023 5:56 PM CDT Respiratory Rate 17 05/29/2023 7:00 PM CDT Oxygen Saturation 92% 05/29/2023 9:00 PM CDT Inhaled Oxygen Concentration - - Weight 81.6 kg (180 lb) 05/29/2023 5:56 PM CDT Height 157.5 cm (5' 2 ) 05/29/2023 5:56 PM CDT Body Mass Index 32.92 05/29/2023 5:56 PM CDT Plan of Treatment Health Maintenance Due Date Last Done Comments Annual Physical 01/15/1983 Hepatitis B Vaccines (1 of 3 - 19+ 3-dose series) 01/15/1999 COVID-19 Vaccine (3 - 2023-2 5 season) 2023 04/04/2020, 03/07/2020 PHQ-2 (Physician [place]) 02/22/2024 DTaP, Tdap and Td Vaccines ( 2 - Td or Tdap) 03/27/2024 03/27/2014 Mammogram Screening 09/06/2024 09/06/2022 Hepatitis C Completed 08/04/2022, 05/05/2020 HPV Vaccines Aged Out No longer eligi ble based on patient's age to complete this topic Meningococcal B Vaccine Aged Out No l onger eligible based on patient's age to complete this topic Meningococcal Vaccine Aged Out No waleska jeovanny eligible based on patient's age to complete this topic Pneumococcal Vaccine: Pediatrics (0 to 5 Years) and At-Risk Patients (6 to 64 Years) Aged Out No longer eligible b ased on patient's age to complete this topic RSV Immunizations Under 20 Months Aged Out No longer eligible b ased on patient's age to complete this topic Medical Devices Implanted Type Area Pattern Room Attendant Device Identifier Shelf Expiration Date Model / Serial / Lot Chondral Dart Implanted:Qty: 1 on 10/06/2017 by Ulysses Higgins MD at [facility] Right: Ankle [employer] 04/20/2020 [id number] / / [id number] Insurance [place] Care Teams Horticultural Services Supervisor Relationship Specialty Start Date End Date Santos Nguyen MD [address] [facility] [address] [place] [address] PCP - General FAMILY PRACTICE 01/01/22
--- OUTSIDE RECORDS SUMMARY | 2024-05-30 17:11 | XMS_ITS | Encounter Summary ---
Author Organization [facility] Address [facility] [place] [address] Care Team Providers Care Special Effects Makeup Artist Name Role Phone Nate Arteaga MD Primary Care Provider [phone] Santos Nguyen MD Primary Care Provider [phone] Encounter Details Date Type Department Care Team (Late st Contact Info) Description 05/29/2020 MyChart Message Enc [facility] Multispecialty Care - [facility] [address] [facility], [address] [place] [id number] Darío Sanchez MD [address] [place] [address] RE: Question Social History Tobacco Use Types Packs/Day [...] have Coronavirus / COVID-19? No / Unsure 05/27/2020 1:30 PM CDT documented as of this encounter Plan of Treatment Not on file documented as of this encounter Visit Diagnoses Not on filedocumented in this encounter Additional Health Concerns Infection Onset Date Last Indicated Resolved Time COVID-19 Rule Out 11/24/2021 11/24/2021 11/24/2021 4:26 PM CDT documented as of this encounter Care Teams Special Effects Makeup Artist Relationship Specialty Start Date End Date Nate Arteaga MD [address] [place] [address] PCP - General INTERNAL MEDICINE 02/28/20 12/31/21 Santos Nguyen MD [address] [address] PCP - General FAMILY PRACTICE 01/01/22 documented as of this encounter
--- OUTSIDE RECORDS SUMMARY | 2024-05-30 17:11 | XMS_ITS | Encounter Summary ---
Author Organization [facility] Address [address] [facility] [place] [address] Care Team Providers Care Panel Installer Name Role Phone Vinod Zuñiga MD Unavailable [phone] Santos Nguyen MD Primary Care Provider [phone] Ulysses Higgins MD Unavailable [phone] Reji Mancuso [facility] Unavailable [phone] Brunilda Hoff MEDICAL SCHEDULER Unavailable [phone] Reji Mancuso [facility] Unavailable [phone] Jennifer Patel RN Unavailable [phone] Reji Mancuso [facility] Unavailable [phone] Encounter Details Date Type Department Care Team (Late st Contact Info) Description 02/03/2023 Ophth Exam [facility] - Ophthalmology [address] [place] [address] Joanna Adams MD [address] [facility] [place] [address] Social History Tobacco Use Types Packs/Day Years [...] Recorded Patient Health Questionnaire-2 Score 0 02/07/2023 [facility] of Occupat ional Health - Occupational Stress [...] Info) Description 07/02/2024 5:30 PM CDT Appointment [facility] [address] [place] [phone] Karl Miller MD [address] [place] [address] documented as of this encounter Visit Diagnoses Not on filedocumented in this encounter Additional Health Concerns Infection Onset Date Last Indicated Resolved Time COVID-19 Under Investigation 03/10/2023 03/10/2023 03/10/2023 6:40 PM AUTOMOTIVE EXHAUST EMISSIONS TECHNICIAN COVID-19 Under Investigation 12/16/2023 12/16/2023 12/16/2023 11:15 AM CDT documented as of this encounter Care Teams Panel Installer Relationship Specialty Start Date End Date Santos Nguyen MD [address] [facility] [address] [place] [address] PCP - General 01/08/22 Vinod Zuñiga MD [address] [facility] [address] [place] [address] Obstetrics and Gynecology 09/01/21 Ulysses Higgins MD [address] [place] [address] Orthopedic Surgery 05/10/22 Reji Mancuso LMSW Outpatient Supervisor Pig Machine Care Management 02/07/23 Brunilda Hoff MSW Supervisor Pig Machine 02/07/23 02/15/23 Reji Mancuso LMSW Outpatient Supervisor Pig Machine Care Management 03/18/2302/22 Jennifer Patel RN [address] [place] [id number] Machine DrillerInsurance Counselor 12/20/23 02/10/24 Reji Mancuso LMSW Supervisor Pig Machine Care Management 02/17/24 02/21/24 documented as of this encounter
--- OUTSIDE RECORDS SUMMARY | 2024-05-30 17:11 | XMS_ITS | Encounter Summary ---
Author Organization [facility] Address [facility] [place] [address] Care Team Providers Care Deck Builder Name Role Phone Nate Arteaga MD Primary Care Provider [phone] Santos Nguyen MD Primary Care Provider [phone] Encounter Details Date Type Department Care Team (Latest Contact Info) Description 05/03/2020 MyChart Message Enc [facility] Medical Group Multispecialty Care - [facility] [address] [facility], [address] [place] [phone] Darío Sanchez MD [address] [place] [address] RE: Medication Questions Social History Tobacco Use Types Packs/Day Years [...] COVID-19? No / Unsure 05/01/2020 8:18 AM FURNACE CLEANER documented as of this encounter Progress Notes * Beatrice Lewis RN - 05/05/2020 7:56 AM CDT Will discuss with documented in this encounter Plan of Treatment Not on file documented as of this encounter Visit Diagnoses Not on filedocumented in this encounter Additional Health Concerns Infection Onset Date Last Indicated Resolved Time COVID-19 Rule Out 11/24/2021 11/24/2021 11/24/2021 4:26 PM CDT documented as of this encounter Care Teams Deck Builder Relationship Specialty Start Date End Date Nate Arteaga MD [address] [place] [address] PCP - General INTERNAL MEDICINE 02/28/20 12/31/21 Santos Nguyen MD [address] [facility] [address] [place] [address] PCP - General FAMILY PRACTICE 01/01/22 documented as of this encounter
--- OUTSIDE RECORDS SUMMARY | 2024-05-30 17:11 | XMS_ITS | Referral Summary ---
Author Organization [address] Address [facility] [place] [address] Care Team Providers Care Meter Repairer Helper Name Role Phone Santos Nguyen MD Primary Care Provider [phone] Allergies Active Allergy Reactions Criticality Noted Date [...] bleeding and left SI regional pain. 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 Not on file Not on file Last Filed Vital Signs Vital Sign Reading Time Taken Comments Blood Pressure 108/59 02/28/2024 6:40 PM STUD DRIVER Pulse 101 02/28/2024 6:40 PM STUD DRIVER Temperature 37.1 C (98.8 F) 02/28/2024 10:28 AM STUD DRIVER Respiratory Rate 18 02/28/2024 6:40 PM STUD DRIVER Oxygen Saturation 97% 02/28/2024 6:40 PM STUD DRIVER Inhaled Oxygen Concentration - - Weight 86.2 kg (190 lb) 02/28/2024 10:28 AM STUD DRIVER Height 157.5 cm (5' 2 ) 12/06/2022 5:05 PM CDT Body Mass Index 34.75 12/06/2022 5:05 PM CDT Plan of Treatment Not on file Insurance [facility] [address] [place] [address] [address] [facility] [address], [facility] Care Teams Meter Repairer Helper Relationship Specialty Start Date End Date Santos Nguyen MD [address] [facility] [address] [place] [address] PCP - General Family Medicine 10/23/21
--- NOTE | 2024-05-30 18:27 | ED_ITS ---
HPI - Eye Problem General Chief complaint: Eye Problems <Cathryn Terry BULK COOLERS INSTALLER - Last Filed: 05/30/24 18:30> Stated complaint: cellulitis <Cathryn Terry BULK COOLERS INSTALLER - Last Filed: 05/30/24 18:30> Time Seen by Provider: 05/30/24 18:15 <Cathryn Terry BULK COOLERS INSTALLER - Last Filed: 05/30/24 18:30> Focused HPI: Patient is a 44-year-old female who presents to the ER with complaints of left eye pain and infection. She reports she had a pimple and her left eye for approximately 1 and half months. Patient reports it popped while she was sleeping last night. She reports her left eye has been watery and red today. Throughout the day patient endorses swelling around her left upper and lower eyelids. 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 She also endorses a history of a Chiari malformation that was surgically repaired. GENERAL: Well-appearing, well-nourished, tearful HEAD: Normocephalic, atraumatic. CHEST: Clear to auscultation. ?No respiratory distress. HEART: Tachycardia, regular rhythm.? NEURO: ?Alert and oriented x3. Patient screened in triage and initial orders placed.? ?Additional care and disposition to be based upon?diagnostic testing and treatment. <Cathryn Terry BULK COOLERS INSTALLER - Last Filed: 05/30/24 18:30> Focused HPI: Patient is a 44-year-old female who presents to the ER with complaints of left eye pain and infection. She reports she had a pimple and her left eye for approximately 1 and half months. Patient reports it popped while she was sleeping last night. She reports her left eye has been watery and red today. Throughout the day patient endorses swelling around her left upper and lower eyelids. 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 She also endorses a history of a Chiari malformation that was surgically repaired. GENERAL: Well-appearing, well-nourished, tearful. HEAD: Normocephalic, atraumatic. CHEST: Clear to auscultation. ?No respiratory distress. HEART: Tachycardia, regular rhythm.? NEURO: ?Alert and oriented x3. Patient screened in triage and initial orders placed.? ?Additional care and disposition to be based upon?diagnostic testing and treatment. <Susy Rubi PA-C - Last Filed: 05/31/24 01:27> History of Present Illness HPI Narrative: Agree with the above triage note. Patient is endorsing pain when she moves her eye and upward deviation and photophobia. Also reporting clear tearing, no purulent drainage. She is also endorsing a foreign body sensation in the left eye with blurry vision. Patient states she went to urgent care and was sent to the ED for CT scan of her orbit. <Susy Rubi PA-C - Last Filed: 05/31/24 01:27> Related Data Home medications: Home Medications ?Medication ?Instructions ?Recorded ?Confirmed ?Last Taken ?Type dextroamphetamine-amphetamine 30 30 mg PO DAILY 12/12/23 05/30/24 Unknown History mg tablet gabapentin 600 mg tablet 600 mg PO DAILY 12/12/23 05/30/24 Unknown History hydroxyzine HCl 25 mg tablet 25 mg PO DAILY 12/12/23 05/30/24 Unknown History omeprazole 40 mg capsule,delayed 40 mg PO DAILY 12/12/23 05/30/24 Unknown History release diazepam 5 mg tablet (Valium) 5 mg PO TID PRN anxiety 04/02/24 05/30/24 Unknown History methotrexate (PF) 25 mg/0.5 mL 25 mg subcut WEEKLY 04/02/24 05/30/24 Unknown History subcutaneous auto-injector doxepin 10 mg capsule 10 mg PO HS 05/30/24 05/30/24 Unknown History famotidine 40 mg tablet 40 mg PO DAILY 05/30/24 05/30/24 Unknown History folic acid 1 mg tablet 1 mg PO DAILY 05/30/24 05/30/24 Unknown History lidocaine 5 % topical patch patch topical Q24H 05/30/24 Unknown History tofacitinib 11 mg tablet,extended 11 mg PO Q24H 05/30/24 05/30/24 Unknown History release 24 hr (Xeljanz XR) <Cathryn Terry APRN - Last Filed: 05/30/24 18:30> Allergies/adverse reactions: Allergies Allergy/AdvReac Type Severity Reaction Status Date / Time benzonatate (From Tessalon Allergy Hives Verified 05/30/24 15:52 Perles) morphine AdvReac Mild NAUSEA AND Verified 05/30/24 15:52 VOMITING; SEVERE MIGRAINE NSAIDS (Non-Steroidal AdvReac Unknown Nausea and Verified 05/30/24 15:52 Anti-Inflamma Vomiting HAIR DYE Allergy Unknown Itching Uncoded 05/30/24 15:52 <Cathryn Terry APRN - Last Filed: 05/30/24 18:30> Review of Systems 2 Review of Systems: All systems reviewed & are unremarkable except as noted in HPI and below <Susy Rubi PA-C - Last Filed: 05/31/24 01:27> [facility] Past Medical History Medical History: Medical History GERD (gastroesophageal reflux disease) Neck pain Rheumatoid arthritis Uterine cancer Chiari malformation <Cathryn Terry APRN - Last Filed: 05/30/24 18:30> Surgical History Surgical History: Surgical History History of cholecystectomy History of bilateral breast reduction surgery History of hysterectomy History of brain surgery Decompression surgery <Cathryn Terry APRN - Last Filed: 05/30/24 18:30> Family History Family History: Family History Father Alive and well Mother Hypertension Heart disease Seizures Grandparent Family history of malignant neoplasm of cervix Father Patient's father is Mother Family history of epilepsy <Cathryn Terry APRN - Last Filed: 05/30/24 18:30> Social History Social History: Social History Smoking packs per day: 0.25 Smoking cigarettes per day: 5.0 Years smoked: 10 Smoking pack-years: 2.50 Smoking status: Light tobacco smoker Tobacco type: e-cigarettes/vaping Second hand tobacco smoke exposure: No Alcohol intake: current Substance use: current Substance use type: marijuana Do You Feel Safe in your Home?: Yes Lack of Transportation: YES Lack of Food: Sometimes True Current Housing: I Have Housing Concerned About Future Housing: No Difficulty Paying Gas/Electric Bills: YES Difficulty Paying for Meds: YES Currently Unemployed: No Education: Associate Degree Difficulty w/ Childcare or Family Care: No Living arrangements: with family Occupation/Education: occupation Additional occupation/education comments: Currently working from home scheduled to return next week per Yvonne Gender identity (if verbalized by the patient): Female <Cathryn Terry APRN - Last Filed: 05/30/24 18:30> Exam 2 Narrative: GENERAL: Well-appearing, well-nourished, and in no acute distress. HEAD: Normocephalic, atraumatic. EYES: PERRLA and EOMI. Left eye with edema to the upper and lower lids and mild surrounding erythema, no significant warmth. Clear tearing to the left eye, no purulence. Conjunctiva is erythematous with mild chemosis, no proptosis. Fluorescein staining shows no increased uptake, no abrasions, no ulcerations, negative Osvaldo sign. Left ocular pressure is 12 mmHg. ENT: Nares clear, no rhinorrhea or epistaxis. Mucous membranes moist. NECK: Supple. CHEST: Clear to auscultation. No respiratory distress. HEART: Regular rate and rhythm. No murmur heard. Normal peripheral pulses. EXTREMITIES: Normal range of motion. No edema. SKIN: Warm, dry, no rash. NEURO: No focal deficits. Alert and oriented x3 <Susy Rubi PA-C - Last Filed: 05/31/24 01:27> Course Course Emergency Course: Pending transfer to [facility] ED, patient is requesting pain medications for her chronic pain to her shoulders, ribs and knees. States she is having a flair of her autoimmune disease. <Susy uRbi PA-C - Last Filed: 05/31/24 01:27> Vital Signs Vital signs: Vital Signs Temperature 97.6 F 05/30/24 16:58 Pulse Rate 109 H 05/30/24 16:58 Respiratory Rate 16 05/30/24 16:58 Blood Pressure 132/77 05/30/24 16:58 Pulse Oximetry 99 05/30/24 16:58 Oxygen Delivery Room Air 05/30/24 16:58 Temperature 97.6 F 05/30/24 16:58 Pulse Rate 89 05/30/24 23:17 Respiratory Rate 18 05/30/24 23:17 Blood Pressure 136/78 05/30/24 23:17 Pulse Oximetry 98 05/30/24 23:17 Oxygen Delivery Room Air 05/30/24 22:17 <Cathryn Terry APRN - Last Filed: 05/30/24 18:30> Vital Signs Temperature 97.6 F 05/30/24 16:58 Pulse Rate 109 H 05/30/24 16:58 Respiratory Rate 16 05/30/24 16:58 Blood Pressure 132/77 05/30/24 16:58 Pulse Oximetry 99 05/30/24 16:58 Oxygen Delivery Room Air 05/30/24 16:58 Temperature 97.6 F 05/30/24 16:58 Pulse Rate 89 05/30/24 23:17 Respiratory Rate 18 05/30/24 23:17 Blood Pressure 136/78 05/30/24 23:17 Pulse Oximetry 98 05/30/24 23:17 Oxygen Delivery Room Air 05/30/24 22:17 <Susy Rubi PA-C - Last Filed: 05/31/24 01:27> MDM - Eye Problem MDM Narrative Medical decision making narrative: 44-year-old female presents to the emergency department for left eye swelling and pain since this morning. Patient noted she had a ?pimple? to her left upper lid for the past month and a half and believes this ?pimple? popped in her sleep last night and she woke up with her current symptoms. Triage vitals with tachycardia 109, otherwise unremarkable. Patient is afebrile and nontoxic appearing. Exam is significant for the above. Notably patient's visual acuity is 20/400 in her left eye, 20/50 in her right eye. Left eye pressure is 12 mmHg. She does have erythematous and injected conjunctiva with chemosis, no proptosis. There is edema to the upper lower lids with no significant erythema. Forcing staining without increased uptake. Given reported pain with EOMs, lab work and CT orbit obtained. Lab work shows no leukocytosis. Chemistries with mild transaminitis, normal bilirubin and Alk- phos. CT of the orbits shows slightly enlarged enhancing left lacrimal gland which may be due to inflammatory changes, adjacent fat stranding of the lower lid is noted. Patient received a [place] in triage without improvement. She declined Tylenol. She was given a dose of Dilaudid with improvement. Given poor visual acuity to the left eye and pain with EOMs, I did consult [facility] and discussed with Dr. Erickson who recommends transfer to [facility] ED for urgent eye exam given patient's symptoms and findings concerning for septal cellulitis. The patient was started on vancomycin and Rocephin to cover for this. I discussed with [facility] ED physician Dr. Mc who accepts transfer. <Susy Rubi PA-C - Last Filed: 05/31/24 01:27> Lab Data Result diagrams: 05/30/24 22:46 05/30/24 22:46 <Cathryn Terry APRN - Last Filed: 05/30/24 18:30> Labs: Lab Results 05/30/24 Range/Units 22:46 WBC 9.3 (4.5-10.0) K/mm3 RBC 4.16 L (4.2-5.4) M/mm3 Hgb 12.8 (12.0-15.0) g/dL Hct 38.1 (37.0-47.0) % MCV 91.6 (80-100) fl MCH 30.8 (26-34) pg MCHC 33.6 (32-36) g/dl RDW 13.0 (11.5-14.5) % Plt Count 260 (150-375) k/mm3 MPV 10.2 (7.4-10.4) fl Immature Gran % (Auto) 0.4 (0-0.5) % Neut % (Auto) 66.2 (45.5-73.1) % Lymph % (Auto) 24.0 (18.3-44.2) % Harmon % (Auto) 6.4 (2.6-8.5) % Eos % (Auto) 2.4 (0-4.4) % Baso % (Auto) 0.6 (0.2-1.2) % Lymph # (Auto) 2.24 (0.9-3.2) K/mm3 Harmon # (Auto) 0.6 (0.1-0.6) K/mm3 Eos # (Auto) 0.2 (0-0.3) K/mm3 Baso # (Auto) 0.1 (0.0-0.1) K/mm3 Abs Immat Gran (auto) 0.04 H (0.00-0.031) K/mm3 Absolute Neuts (auto) 6.2 (1.3-6.7) K/mm3 Absolute Nucleated RBC 0.000 (0.0-0.012) K/mm3 Nucleated RBC % 0.0 (0.0-0.2) % Sodium 140 (137-145) mmol/L Potassium 3.5 (3.4-5.0) mmol/L Chloride 105 (98-107) mmol/L Carbon Dioxide 27 (22-30) mmol/L Anion Gap 8 (4-12) mmol/L BUN 10 D (7-17) mg/dL Creatinine 0.62 L (0.7-1.0) mg/dL Estim Creat Clear Calc 98 ml/min Estimated GFR > 60 (59 - ) Glucose 84 (65-110) mg/dL Calcium 9.2 (8.4-10.2) mg/dL Total Bilirubin 0.3 (0.2-1.3) mg/dL AST 46 H (14-36) U/L ALT 54 H (6-35) U/L Alkaline Phosphatase 85 (38-126) U/L C-Reactive Protein 0.8 (<1.0) mg/dL Total Protein 7.0 (6.3-8.2) g/dL Albumin 4.3 (3.5-5.1) g/dL <Cathryn Terry, BULK COOLERS INSTALLER - Last Filed: 05/30/24 18:30> Lab Results 05/30/24 Range/Units 22:46 WBC 9.3 (4.5-10.0) K/mm3 RBC 4.16 L (4.2-5.4) M/mm3 Hgb 12.8 (12.0-15.0) g/dL Hct 38.1 (37.0-47.0) % MCV 91.6 (80-100) fl MCH 30.8 (26-34) pg MCHC 33.6 (32-36) g/dl RDW 13.0 (11.5-14.5) % Plt Count 260 (150-375) k/mm3 MPV 10.2 (7.4-10.4) fl Immature Gran % (Auto) 0.4 (0-0.5) % Neut % (Auto) 66.2 (45.5-73.1) % Lymph % (Auto) 24.0 (18.3-44.2) % Harmon % (Auto) 6.4 (2.6-8.5) % Eos % (Auto) 2.4 (0-4.4) % Baso % (Auto) 0.6 (0.2-1.2) % Lymph # (Auto) 2.24 (0.9-3.2) K/mm3 Harmon # (Auto) 0.6 (0.1-0.6) K/mm3 Eos # (Auto) 0.2 (0-0.3) K/mm3 Baso # (Auto) 0.1 (0.0-0.1) K/mm3 Abs Immat Gran (auto) 0.04 H (0.00-0.031) K/mm3 Absolute Neuts (auto) 6.2 (1.3-6.7) K/mm3 Absolute Nucleated RBC 0.000 (0.0-0.012) K/mm3 Nucleated RBC % 0.0 (0.0-0.2) % Sodium 140 (137-145) mmol/L Potassium 3.5 (3.4-5.0) mmol/L Chloride 105 (98-107) mmol/L Carbon Dioxide 27 (22-30) mmol/L Anion Gap 8 (4-12) mmol/L BUN 10 D (7-17) mg/dL Creatinine 0.62 L (0.7-1.0) mg/dL Estim Creat Clear Calc 98 ml/min Estimated GFR > 60 (59 - ) Glucose 84 (65-110) mg/dL Calcium 9.2 (8.4-10.2) mg/dL Total Bilirubin 0.3 (0.2-1.3) mg/dL AST 46 H (14-36) U/L ALT 54 H (6-35) U/L Alkaline Phosphatase 85 (38-126) U/L C-Reactive Protein 0.8 (<1.0) mg/dL Total Protein 7.0 (6.3-8.2) g/dL Albumin 4.3 (3.5-5.1) g/dL <Susy J. Rubi, PA-C - Last Filed: 05/31/24 01:27> Discharge Plan Discharge Clinical Impression: Preseptal cellulitis of left eye <Cathryn Terry APRN - Last Filed: 05/30/24 18:30> Patient Disposition: Acute Care Hospital <Cathryn Terry APRN - Last Filed: 05/30/24 18:30> Condition: Serious <Cathryn Terry APRN - Last Filed: 05/30/24 18:30> Patient Language: Romansh <Cathryn Terry APRN - Last Filed: 05/30/24 18:30> Prescriptions: No Action gabapentin 600 mg tablet 600 mg PO DAILY omeprazole 40 mg capsule,delayed release(DR/EC) 40 mg PO DAILY dextroamphetamine-amphetamine 30 mg tablet 30 mg PO DAILY hydroxyzine HCl 25 mg tablet 25 mg PO DAILY cyclobenzaprine 10 mg tablet 10 mg PO TID PRN (Reason: muscle spasm) Qty: 20 0RF doxepin 10 mg capsule 10 mg PO HS famotidine 40 mg tablet 40 mg PO DAILY folic acid 1 mg tablet 1 mg PO DAILY lidocaine 5 % adhesive patch,medicated topical Q24H Xeljanz XR 11 mg tablet extended release 24 hr 11 mg PO Q24H methotrexate (PF) 25 mg/0.5 mL auto-injector 25 mg subcut WEEKLY diazepam [Valium] 5 mg tablet 5 mg PO TID PRN (Reason: anxiety) <Cathryn Terry APRN - Last Filed: 05/30/24 18:30> Follow-up/Referrals: PHYSICIAN NOT ON STAFF,NONSTAFF [Non-Staff] - <Cathryn Terry APRN - Last Filed: 05/30/24 18:30>
[2024-05-30] MEDS: HYDROcodone/acetaminophen (*CRX) 5-325 MG TABLET 1 TAB PO (19:03)
[2024-05-30 22:17] VITALS: BP 145/81; PULSE 100; RESP 20; O2SAT 100
--- OUTSIDE RECORDS SUMMARY | 2024-05-30 22:17 | XMS_ITS | Encounter Summary ---
Author Organization [facility] Address [address] [facility] [place] [address] Care Team Providers Care Air Pumper Name Role Phone Vinod Zuñiga MD Unavailable [phone] Santos Nguyen MD Primary Care Provider [phone] Ulysses Higgins MD Unavailable Reason for Visit * Reason Onset Date Comments Pain 05/25/2024 Med Question 05/25/2024 Encounter Details Date Type Department Care Team (Late st Contact Info) Description 05/25/2024 Telephone [facility] - Internal Medicine [address] [place] [id number] Santos Nguyen MD [address] [place] [id number] Pain; Med Question Social History Tobacco Use [...] Recorded Patient Health Questionnaire-2 Score 0 04/24/2024 [facility] - Occupational [...] Info) Description 07/02/2024 5:30 PM CDT Appointment [place] [address] [place] [address] Karl Miller MD [address] DEPT [place] [address] documented as of this encounter Visit Diagnoses Not on filedocumented in this encounter Care Teams Air Pumper Relationship Specialty Start Date End Date Santos Nguyen MD [address] [facility] [address] [place] [address] PCP - General 01/08/22 Vinod Zuñiga MD [address] [place], [place] [id number] Obstetrics and Gynecology 09/01/21 Ulysses Higgins MD [address] [place] [address] Orthopedic Surgery 05/10/22 documented as of this encounter
--- OUTSIDE RECORDS SUMMARY | 2024-05-30 22:17 | XMS_ITS | Encounter Summary ---
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 Seronegative rheumatoid arthritis (HCC) Immunosuppression due to drug therapy (HCC) Álvaro Barnett MD [address] [place] [address] Referral ID Status Reason Start Date Expiration Date V isits Requested Visits Authorized [id number] Open Specialty Services Required 05/30/2024 05/30/2025 1 1 Reason for Visit * Reason Comments Follow-up Encounter Details Date Type Department Care Team (Latest Contact Info) Description 05/30/2024 11:00 AM CDT Office Visit [facility] - Rheumatology [address] [facility] [place] [id number] Álvaro Barnett MD [address] [place] [address] Relapsing polychondritis (Primary Dx); Chondritis of both [...] Recorded Patient Health Questionnaire-2 Score 0 04/24/2024 [facility] - Occupational Stress [...] need to get labs this week at [facility] and every 8-12 weeks. After looking at the labs, we will refill the Methotrexate We will place a new pain clinic referral. We sent you a script for topical diclofenac. Please use up to 4 drops in your eye. Please continue the Xeljanz daily. Return to clinic: [address] Huffman/ new fellow To cancel, schedule, or reschedule an appointment, call [phone] or [phone], option 1. If you choose to get labs or imaging at an outside facility, it is your (as the patient) responsibility to have these results sent to us. Our fax number is [phone]. If you need a refill on your medication, please call your pharmacy first to have them send us a refill request. If you have an emergency after hours, you can reach the clerk travel reservations fellow by calling the dye jig operator [phone], but please also seek out appropriate care [...] 10 mg/kg (12/29/22 - Oct 2023; PMIDs [id number], [id number]), Cyclophosphamide 150 mg PO daily (~1.75 mg/kg; [...] BID. Defer to her psychiatrist (Se Purdy [phone]) #. H/o CYC - urine cytology q6-12m [...] Rheumatology Fellowship Program Department of Internal Medicine [facility] Encounter Orders and Future Appointments: Orders Placed This Encounter CBC WITH DIFFERENTIAL COMPREHENSIVE METABOLIC PANEL AMB REFERRAL TO PAIN CLINIC diclofenac 0.1% (Voltaren) 0.1 % ophthalmic solution Future Appointments Date Time Provider Department Center 07/02/2024 5:30 PM [facility] MRI SCANNER 2 3T [facility] * Álvaro Barnett MD - 05/30/2024 11:23 AM CDT Rheumatology Clinic Follow Up Visit [facility] Division of Adult Rheumatology Patient: Yvonne Fonseca [...] Bandages & Supports (Knee Brace Adjustable Hinged) [facility], Use 1 Each once daily Left knee [...] 1 vitamin D, ergocalciferol, (Drisdol) 1.25 MG (67565 UT) capsule, Take 1 (one) capsule by [...] (HCC) 12/27/2022 Relapsing polychondritis 10/2022 Rheumatoid arthritis ([facility]) Traumatic injury of ankle with fracture of [...] attending . Álvaro Barnett MD Rheumatology Fellow [facility] Immunization History Administered Date(s) Administered Covid Moderna [...] 10 mg/kg (12/29/22 - Oct 2023; PMIDs [id number], [id number]), Cyclophosphamide 150 mg PO daily (~1.75 mg/kg; [...] BID. Defer to her psychiatrist (Se Purdy [phone]) #. H/o CYC - urine cytology q6-12m [...] Rheumatology Fellowship Program Department of Internal Medicine [facility] Medicine Encounter Orders and Future Appointments: Orders Placed This Encounter CBC WITH DIFFERENTIAL COMPREHENSIVE METABOLIC PANEL AMB REFERRAL TO PAIN CLINIC diclofenac 0.1% (Voltaren) 0.1 % ophthalmic solution Future Appointments Date Time Provider Department Center 07/02/2024 5:30 PM [facility] MRI SCANNER 2 3T [facility] documented in this encounter Plan of Treatment Upcoming Encounters Date Type Department Care Team (Late st Contact Info) Description 07/02/2024 5:30 PM CDT Appointment [facility] MRI [address] [place] [address] Karl Miller MD [address] DEPT [place] [address] Scheduled Orders Name Type Priority Associated Diagnoses [...] (HCC) documented in this encounter Care Teams Merchandise Coordinator Relationship Specialty Start Date End Date Santos Nguyen MD [address] [facility] [address] [place] [address] PCP - General 01/08/22 Vinod Zuñiga MD [address] [place], [place] [phone] Obstetrics and Gynecology 09/01/21 Ulysses Higgins MD [address] [place] [address] Orthopedic Surgery 05/10/22 documented as of this encounter
--- OUTSIDE RECORDS SUMMARY | 2024-05-30 22:17 | XMS_ITS | Encounter Summary ---
Author Organization [facility] Address [address] [facility] [place] [address] Care Team Providers Care Academic Records Specialist Name Role Phone Vinod Zuñiga MD Unavailable [phone] Santos Nguyen MD Primary Care Provider [phone] Ulysses Higgins MD Unavailable [phone] Encounter Details Date Type Department Care Team (Late st Contact Info) Description 03/08/2024 Telephone [facility] - Centralized Scheduling [address] [place] [address] Mario Huffman MD [address] [place] [address] Social History Tobacco Use Types [...] Recorded Patient Health Questionnaire-2 Score 0 03/12/2024 [facility] Occupat ional Health - [...] Info) Description 07/02/2024 5:30 PM CDT Appointment [facility] [address] [place] [id number] Karl Miller MD [address] [facility] [address] [place] [address] documented as of this encounter Visit Diagnoses Not on filedocumented in this encounter Care Teams Academic Records Specialist Relationship Specialty Start Date End Date Santos Nguyen MD [address] [facility] [address] [place] [address] PCP - General 01/08/22 Vinod Zuñiga MD [address] [place], [place] [phone] Obstetrics and Gynecology 09/01/21 Ulysses Higgins MD [address] [place] [address] Orthopedic Surgery 05/10/22 documented as of this encounter
--- OUTSIDE RECORDS SUMMARY | 2024-05-30 22:17 | XMS_ITS | Clinical Summary ---
Author Organization [address] Address [facility]ly [facility] [place] [address] Care Team Providers Care Paper Finisher Name Role Phone Santos Nguyen MD Primary Care Provider [phone] Allergies Active Allergy Reactions Criticality Noted Date [...] bleeding and left SI regional pain. 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 Not on file Not on file Obstetrics History Last Filed Vital Signs Vital Sign Reading Time Taken Comments Blood Pressure 108/59 02/28/2024 6:40 PM COMPOSITION ROOFER Pulse 101 02/28/2024 6:40 PM COMPOSITION ROOFER Temperature 37.1 C (98.8 F) 02/28/2024 10:28 AM COMPOSITION ROOFER Respiratory Rate 18 02/28/2024 6:40 PM COMPOSITION ROOFER Oxygen Saturation 97% 02/28/2024 6:40 PM COMPOSITION ROOFER Inhaled Oxygen Concentration - - Weight 86.2 kg (190 lb) 02/28/2024 10:28 AM COMPOSITION ROOFER Height 157.5 cm (5' 2 ) 12/06/2022 [...] patient's age to complete this topic Insurance [facility] Care Teams Paper Finisher Relationship Specialty Start Date End Date Santos Nguyen MD [address] [place] [id number] PCP - General Family Medicine 10/23/21
--- OUTSIDE RECORDS SUMMARY | 2024-05-30 22:17 | XMS_ITS | Referral Summary ---
Author Organization [address] Address [facility] [place] [address] Care Team Providers Care Automated Access Systems Technician Name Role Phone Santos Nguyen MD Primary Care Provider [phone] Allergies Active Allergy Reactions Criticality Noted Date [...] bleeding and left SI regional pain. 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 file Not on file Not on file Last Filed Vital Signs Vital Sign Reading Time Taken Comments Blood Pressure 108/59 02/28/2024 6:40 PM HAIR BOILER Pulse 101 02/28/2024 6:40 PM HAIR BOILER Temperature 37.1 C (98.8 F) 02/28/2024 10:28 AM HAIR BOILER Respiratory Rate 18 02/28/2024 6:40 PM HAIR BOILER Oxygen Saturation 97% 02/28/2024 6:40 PM HAIR BOILER Inhaled Oxygen Concentration - - Weight 86.2 kg (190 lb) 02/28/2024 10:28 AM HAIR BOILER Height 157.5 cm (5' 2 ) 12/06/2022 5:05 PM CDT Body Mass Index 34.75 12/06/2022 5:05 PM CDT Plan of Treatment Not on file Insurance [facility] [address] [place] [address] [address] [address] Dia, [facility] Care Teams Automated Access Systems Technician Relationship Specialty Start Date End Date Santos Nguyen MD [address] [facility] [address] [place] [address] PCP - General Family Medicine 10/23/21
--- OUTSIDE RECORDS SUMMARY | 2024-05-30 22:17 | XMS_ITS | Encounter Summary ---
Author Organization [facility] Address [address] [facility] [address] Care Team Providers Care Loom Doffer Name Role Phone Vinod Zuñiga MD Unavailable [phone] Santos Nguyen MD Primary Care Provider [phone] Ulysses Higgins MD Unavailable [phone] Reji Mancuso [facility] Unavailable [phone] Brunilda Hoff STEEL MANAGER Unavailable [phone] Reji Mancuso [facility] Unavailable [phone] Jennifer Patel RN Unavailable [phone] Reji Mancuso [facility] Unavailable [phone] Encounter Details Date Type Department Care Team (Late st Contact Info) Description 02/03/2023 Ophth Exam [facility] - Ophthalmology [address] [place] [address] Joanna Adams MD [address] [facility] [place] [address] Social History Tobacco Use Types Packs/Day Years [...] Recorded Patient Health Questionnaire-2 Score 0 02/07/2023 [facility] of Occupat ional Health - Occupational Stress [...] place to sleep or slept in a fpc (including now)? No 02/02/2023 Sex and Gender [...] Info) Description 07/02/2024 5:30 PM CDT Appointment [facility] [address] [place] [id number] Karl Miller MD [address] [place] [address] documented as of this encounter Visit Diagnoses Not on filedocumented in this encounter Additional Health Concerns Infection Onset Date Last Indicated Resolved Time COVID-19 Under Investigation 03/10/2023 03/10/2023 03/10/2023 6:40 PM PARTS COUNTER REPRESENTATIVE COVID-19 Under Investigation 12/16/2023 12/16/2023 12/16/2023 11:15 AM CDT documented as of this encounter Care Teams Loom Doffer Relationship Specialty Start Date End Date Santos Nguyen MD [address] [facility] [address] [place] [address] PCP - General 01/08/22 Vinod Zuñiga MD [address] [facility] [address] [place] [address] Obstetrics and Gynecology 09/01/21 Ulyssse Higgins MD [address] [place] [address] Orthopedic Surgery 05/10/22 Reji Mancuso LMSW Outpatient Copier Repair Technician Care Management 02/07/23 Brunilda Hoff MSW Copier Repair Technician 02/07/23 02/15/23 Reji Mancuso LMSW Outpatient Copier Repair Technician Care Management 03/18/2302/22 Jennifer Patel RN [address] [place] [id number] Trend InvestigatorEngine Cleaner 12/20/23 02/10/24 Reji Mancuso LMSW Copier Repair Technician Care Management 02/17/24 02/21/24 documented as of this encounter
--- OUTSIDE RECORDS SUMMARY | 2024-05-30 22:17 | XMS_ITS | Encounter Summary ---
Author Organization [facility] Address [facility] [place] [address] Care Team Providers Care Foot Piece Assembler Name Role Phone Nate Arteaga MD Primary Care Provider [phone] Santos Nguyen MD Primary Care Provider [phone] Encounter Details Date Type Department Care Team (Late st Contact Info) Description 07/13/2021 [facility] Enc [facility] Orthopedic & Sports Medicine - [place] [address] [place] [address] Darío Sanchez MD [address] [place] [address] Elbow Social History Tobacco Use Types Packs/Day [...] documented as of this encounter Care Teams Foot Piece Assembler Relationship Specialty Start Date End Date Nate Arteaga MD [address] [place] [address] PCP - General INTERNAL MEDICINE 02/28/20 12/31/21 Santos Nguyen MD [address] [facility] [address] [place] [address] PCP - General FAMILY PRACTICE 01/01/22 documented as of this encounter
--- OUTSIDE RECORDS SUMMARY | 2024-05-30 22:17 | XMS_ITS | Encounter Summary ---
Author Organization [facility] Address [address] [facility] [place] [address] Care Team Providers Care Gas Welding Machine Operator Name Role Phone Vinod Zuñiga MD Unavailable [phone] Santos Nguyen MD Primary Care Provider [phone] Ulysses Higgins MD Unavailable [phone] Jennifer Patel RN Unavailable [phone] Reji Mancuso [facility] Unavailable [phone] Reason for Visit * Reason Onset Date Comments MEDICATION REFILL 05/05/2023 Encounter Details Date Type Department Care Team (Late st Contact Info) Description 05/05/2023 Refill [facility] Medical [facility] - Rheumatology [address] [facility], [address] [place] [address] José Miguel Singleton DO [address] [facility] [address] [place] [address] MEDICATION REFILL Social History Tobacco [...] Recorded Patient Health Questionnaire-2 Score 0 03/18/2023 [facility] of Occupat ional Health - Occupational Stress [...] interval not displayed. No results for input(s): [id number] in the last 29641 hours. No results for input(s): URICACID in the last 84759 hours. 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 Methotrexate, assisted, current use Encounter for long-term (current) use of other medications documented in this encounter Additional Health Concerns Infection Onset Date Last Indicated Resolved Time COVID-19 Under Investigation 12/16/2023 12/16/2023 12/16/2023 11:15 AM CDT documented as of this encounter Care Teams Gas Welding Machine Operator Relationship Specialty Start Date End Date Santos Nguyen MD [address] [address] PCP - General 01/08/22 Vinod Zuñiga MD [address] [facility] [address] [place] [address] Obstetrics and Gynecology 09/01/21 Ulysses Higgins MD [address] [place] [address] Orthopedic Surgery 05/10/22 Jennifer Patel, MARY [address] [place] [address] Rehab TherapistManager Social Services 12/20/23 02/10/24 Reji Mancuso LMSW Prototype Special Build Care Management 02/17/24 02/21/24 documented as of this encounter
--- OUTSIDE RECORDS SUMMARY | 2024-05-30 22:17 | XMS_ITS | Continuity of Care Document ---
Author Organization [facility] Address [address] [facility] [address] [place] [address] Phone Care Team Providers Care Travel Specialist Name Role Phone Colin Mata MD Unavailable [...] OFFICE/OUTPA TIENT VISIT [facility], [address] [facility] [address], [place], [address], [place] tel:[phone] [facility] Knee pain with avascular necrosis determined by x-rayOther osteonecrosis, left femurChiari I malformationLocki ng of left kneeRheumatoid arthritis involving multiple sites, unspecified whether rheumatoid factor presentBody mass index [BMI] 32.0-32.9, adult 2 [address]. [address] [facility] [address] [place], [place], [id number] . tel:[phone] Family History Family Member Type Diagnosis Age At Onset Mother Problem Rheumatoid arthritis Sister Problem Rheumatoid arthritis Sister Problem Lupus erythematosus Mother Problem Seizure disorder Mother Problem COPD Immunizations Vaccine Date Status Comments Flu (split) (3 yrs or older) administered Note: NONE ; Source: Other Provider Payers Payer name Insurance type Covered constitution party ID Mayi mercer(s) Blue Access PPO E2 OT [id number] Social History Type Description Quantity Date Captured [...]
--- OUTSIDE RECORDS SUMMARY | 2024-05-30 22:17 | XMS_ITS | Encounter Summary ---
Author Organization [facility] Address [address] [place] [address] Care Team Providers Care Peanut Farmer Name Role Phone Vinod Zuñiga MD Unavailable [phone] Santos Nguyen MD Primary Care Provider [phone] Ulysses Higgins MD Unavailable [phone] Reji Mancuso [facility] Unavailable [phone] Brunilda Hoff ATMOSPHERIC SCIENTIST Unavailable [phone] Reji Mancuso [facility] Unavailable [phone] Jennifer Patel RN Unavailable [phone] Reji Mancuso [facility] Unavailable [phone] Encounter Details Date Type Department Care Team (Late st Contact Info) Description 02/04/2023 Ophth Exam [facility] - Ophthalmology [address] [place] [address] Len Navas MD [address] [place] [address] Social History Tobacco Use Types [...] Recorded Patient Health Questionnaire-2 Score 0 02/07/2023 [facility] of Occupat ional Health - Occupational Stress [...] place to sleep or slept in a penitentiary (including now)? No 02/02/2023 Sex and Gender [...] Info) Description 07/02/2024 5:30 PM CDT Appointment [facility] MRI [address] [place] [address] Karl Miller MD [address] [place] [address] documented as of this encounter Visit Diagnoses Not on filedocumented in this encounter Additional Health Concerns Infection Onset Date Last Indicated Resolved Time COVID-19 Under Investigation 03/10/2023 03/10/2023 03/10/2023 6:40 PM SUBSCRIPTION CLERK COVID-19 Under Investigation 12/16/2023 12/16/2023 12/16/2023 11:15 AM CDT documented as of this encounter Care Teams Peanut Farmer Relationship Specialty Start Date End Date Santos Nguyen MD [address] [facility] [address] [place] [address] PCP - General 01/08/22 Vinod Zuñiga MD [address] [facility] [address] [place] [address] Obstetrics and Gynecology 09/01/21 Ulysses Higgins MD [address] [place] [address] Orthopedic Surgery 05/10/22 Reji Mancuso LMSW Outpatient School Cafeteria Cook Head Care Management 02/07/23 Bruinlda Hoff MSW School Cafeteria Cook Head 02/07/23 02/15/23 Reji Mancuso LMSW Outpatient School Cafeteria Cook Head Care Management 03/18/23 1/08/14 Jennifer Patel RN [address] [place], [place] [id number] Senior Financial Reporting AnalystHr Administrator 12/20/23 02/10/24 Reji Mancuso LMSW School Cafeteria Cook Head Care Management 02/17/24 02/21/24 documented as of this encounter
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
--- OUTSIDE RECORDS SUMMARY | 2024-05-30 22:17 | XMS_ITS | Encounter Summary ---
Author Organization [facility] Address [address] [place] [address] Care Team Providers Care Aix Architect Name Role Phone Vinod Zuñiga MD Unavailable [phone] Santos Nguyen MD Primary Care Provider [phone] Ulysses Higgins MD Unavailable [phone] Reji Mancuso SALES DRIVER Unavailable [phone] Vero Ingram PLATING OPERATOR Unavailable [phone] [place] SALES DRIVER Unavailable Brunilda Hoff PLATING OPERATOR Unavailable [place] ben[place] SALES DRIVER Unavailable Jennifer Patel RN Unavailable [phone] Reji Mancuso SALES DRIVER Unavailable [phone] Encounter Details Date Type Department Care Team (Late st Contact Info) Description 07/14/2022 Telephone [facility] - Endocrinology [address] [place] [address], [place] [address] Alejandro Layne MD [address] [place] [address] [place] [address] Social History Tobacco Use Types Packs/Day Years [...] call: Ms. Yvonne Fonseca has referral in [facility] for: E04.2 (ICD-10-CM) - Multiple thyroid nodules E03.9 (ICD-10-CM) - Hypothyroidism, unspecified type R63.4 (ICD-10-CM) - Weight loss, non-intentional MULTIPLE THYROID NODULES. She has an Ultra Sound Scheduled 07/29/2022 with [facility]. She has also lost about 55 pounds in a month and a half. Please review referral, per guidelines we are to send in basketmessage to clinic before scheduling. Patient Call Back number: [phone] documented in this encounter Plan of Treatment Upcoming Encounters Date Type Department Care Team (Late st Contact Info) Description 07/02/2024 5:30 PM CDT Appointment [facility] MRI [address] [place] [address] Karl Miller MD [address] DEPT [place] [address] documented as of this encounter Visit Diagnoses Not on filedocumented in this encounter Additional Health Concerns Infection Onset Date Last Indicated Resolved Time COVID-19 Under Investigation 08/03/2022 08/03/2022 08/03/2022 6:41 PM CDT COVID-19 Under Investigation 03/10/2023 03/10/2023 03/10/2023 6:40 PM AIR COMPRESSOR MECHANIC COVID-19 Under Investigation 12/16/2023 12/16/2023 12/16/2023 11:15 AM CDT documented as of this encounter Care Teams Aix Architect Relationship Specialty Start Date End Date Santos Nguyen MD [address] [address] PCP - General 01/08/22 Vinod Zuñiga MD [address] [place] [address] [address] [place], [place] [id number] Obstetrics and Gynecology 09/01/21 Ulysses Higgins MD [address] [place] [address] Orthopedic Surgery 05/10/22 Reji Mancuso LMSW Outpatient [place] Care Management 08/06/2207/22 Vero Ingram MSW Outpatient [place] Care Management 08/06/2208/20 Reji Mancuso LMSW Outpatient [place] Care Management 02/07/23 Brunilda Hoff, PLATING OPERATOR [place] 02/07/23 02/15/23 Reji Mancuso LMSW Outpatient [place] Care Management 03/18/2302/22 Jennifer Patel, MARY [address] [place] [address] Tube DepatcherChainstitch Elastic Attacher 12/20/23 02/10/24 Reji Mancuso, [facility] [place] Care Management 02/17/24 02/21/24 documented as of this encounter
--- OUTSIDE RECORDS SUMMARY | 2024-05-30 22:17 | XMS_ITS | Encounter Summary ---
Author Organization [facility] Address [address] [place] [address] Care Team Providers Care Driver Service Technician Name Role Phone Vinod Zuñiga MD Unavailable [phone] Santos Nguyen MD Primary Care Provider [phone] Ulysses Higgins MD Unavailable [phone] Jennifer Patel RN Unavailable [phone] Reji Mancuso [facility] Unavailable [phone] Reason for Visit * Reason Onset Date Comments Appointment 11/14/2023 Encounter Details Date Type Department Care Team (Late st Contact Info) Description 11/14/2023 Telephone [facility] - Centralized Scheduling [facility] [place] [address] Karl Miller MD [address] [place] [address] Appointment Social History Tobacco Use [...] Recorded Patient Health Questionnaire-2 Score 0 03/18/2023 [facility] of Occupat ional Health - Occupational Stress [...] place to sleep or slept in a usp (including now)? No 02/02/2023 Sex and Gender [...] Info) Description 07/02/2024 5:30 PM CDT Appointment [facility] MRI [address] [place] [address] Kalr Miller MD [facility] [place] [address] documented as of this encounter Visit Diagnoses Not on filedocumented in this encounter Additional Health Concerns Infection Onset Date Last Indicated Resolved Time COVID-19 Under Investigation 12/16/2023 12/16/2023 12/16/2023 11:15 AM CDT documented as of this encounter Care Teams Driver Service Technician Relationship Specialty Start Date End Date Santos Nguyen MD [address] [facility] [address] [place] [address] PCP - General 01/08/22 Vinod Zuñiga MD [address] [facility] [address] [place] [phone] Obstetrics and Gynecology 09/01/21 Ulysses Higgins MD [address] [place] [address] Orthopedic Surgery 05/10/22 Jennifer Patel RN [address] [facility] [address] [place] [phone] Butcher SupervisorStencil Maker 12/20/23 02/10/24 Reji Mancuso LMSW Food Selector Care Management 02/17/24 02/21/24 documented as of this encounter
--- OUTSIDE RECORDS SUMMARY | 2024-05-30 22:17 | XMS_ITS | Encounter Summary ---
Author Organization [facility] Address [address] [place] [address] Care Team Providers Care Brick Offbearer Name Role Phone Vinod Zuñiga MD Unavailable [phone] Santos Nguyen MD Primary Care Provider [phone] Ulysses Higgins MD Unavailable [phone] Jennifer Patel RN Unavailable [phone] Reji Mancuso [facility] Unavailable [phone] Reason for Visit * Reason Onset Date Comments Appointment 11/11/2023 Encounter Details Date Type Department Care Team (Late st Contact Info) Description 11/11/2023 Telephone [facility] - Ophthalmology [address] [place] [address] Alon Acosta MD [address] [place] [address] [place] [address] Appointment Social History Tobacco Use [...] Recorded Patient Health Questionnaire-2 Score 0 03/18/2023 [facility] of Occupat ional Health - Occupational [...] Info) Description 07/02/2024 5:30 PM CDT Appointment [facility] MRI [address] [place] [phone] Karl Miller MD [address] [place] [address] documented as of this encounter Visit Diagnoses Not on filedocumented in this encounter Additional Health Concerns Infection Onset Date Last Indicated Resolved Time COVID-19 Under Investigation 12/16/2023 12/16/2023 12/16/2023 11:15 AM CDT documented as of this encounter Care Teams Brick Offbearer Relationship Specialty Start Date End Date Santos Nguyen MD [address] [facility] [address] [place] [address] PCP - General 01/08/22 Vinod Zuñiga MD [address] [facility] [address] [place] [phone] Obstetrics and Gynecology 09/01/21 Ulysses Higgins MD [address] [place] [address] Orthopedic Surgery 05/10/22 Jennifer Patel RN [address] [place] [address] Comber SetterSteam Fitter Helper 12/20/23 02/10/24 Reji Mancuso INVENTORY AND PRICING ASSOCIATE Custodial Supervisor Care Management 02/17/24 02/21/24 documented as of this encounter
--- OUTSIDE RECORDS SUMMARY | 2024-05-30 22:17 | XMS_ITS ---
Author Organization [facility] Address [address] [facility] [place] [address] Care Team Providers Care Stacker Driver Name Role Phone Vinod Zuñiga MD Unavailable [phone] Santos Nguyen MD Primary Care Provider [phone] Ulysses Higgins MD Unavailable [phone] Active Problems Problem Noted Date Diagnosed Date [...] bleeding and left SI regional pain. Methotrexate, half-way, current use 09/17/2022 Assessment & Plan (09/17/2022 [...] UA pending - Continue home Celebrex BID, [place] 5 PRN for moderate pain, Dilaudid PRN [...] treatments are documented for this patient in [facility]. Treatments may have been administered in [...]
--- OUTSIDE RECORDS SUMMARY | 2024-05-30 22:17 | XMS_ITS | Encounter Summary ---
Author Organization [facility] Address [facility] [place] [address] Care Team Providers Care Activity Therapy Specialist Name Role Phone Nate Arteaga MD Primary Care Provider [phone] Santos Nguyen MD Primary Care Provider [phone] Encounter Details Date Type Department Care Team (Late st Contact Info) Description 05/29/2020 MyChart Message Enc [facility] Medical Group Multispecialty Care - [facility] [address] [facility], [address] [place] [address] Darío Sanchez MD [address] [place] [address] RE: Question Social History Tobacco Use Types [...] documented as of this encounter Care Teams Activity Therapy Specialist Relationship Specialty Start Date End Date Nate Arteaga MD [address] [place] [address] PCP - General INTERNAL MEDICINE 02/28/20 12/31/21 Santos Nguyen MD [address] [address] PCP - General FAMILY PRACTICE 01/01/22 documented as of this encounter
--- OUTSIDE RECORDS SUMMARY | 2024-05-30 22:17 | XMS_ITS | Encounter Summary ---
Author Organization [facility] Address [facility] [place] [address] Care Team Providers Care Prenatal Genetic Counselor Name Role Phone Nate Aretaga MD Primary Care Provider [phone] Santos Nguyen MD Primary Care Provider [phone] Encounter Details Date Type Department Care Team (Latest Contact Info) Description 05/03/2020 MyChart Message Enc [facility] Medical Group Multispecialty Care - [facility] [address] [facility], [address] [place] [address] Darío Sanchez MD [address] [place] [address] RE: Medication Questions Social History Tobacco Use [...] COVID-19? No / Unsure 05/01/2020 8:18 AM SHOCK ABSORPTION FLOOR LAYER documented as of this encounter Progress Notes [...] documented as of this encounter Care Teams Prenatal Genetic Counselor Relationship Specialty Start Date End Date Nate Arteaga MD [address] [place] [address] PCP - General INTERNAL MEDICINE 02/28/20 12/31/21 Santos Nguyen MD 3 [facility] [address] [place] [address] PCP - General FAMILY PRACTICE 01/01/22 documented as of this encounter
--- OUTSIDE RECORDS SUMMARY | 2024-05-30 22:17 | XMS_ITS | Encounter Summary ---
Author Organization [facility] Address [address] [facility] [place] [address] Care Team Providers Care Roof Fixer Name Role Phone Vinod Zuñiga MD Unavailable [phone] Santos Nguyen MD Primary Care Provider [phone] Ulysses Higgins MD Unavailable [phone] Reji Mancuso [facility] Unavailable [phone] Brunilda Hoff TRANSPORTATION ASSOCIATE Unavailable [phone] Reji Mancuso [facility] Unavailable [phone] Jennifer Patel RN Unavailable [phone] Reji Mancuso [facility] Unavailable [phone] Reason for Visit * Reason Onset Date Comments MEDICATION REFILL 12/14/2022 Encounter Details Date Type Department Care Team (Late st Contact Info) Description 12/14/2022 Refill [facility] - Rheumatology [address] [facility], [address] [place] [address] José Miguel Singleton DO [address] [facility] [address] [place] [address] MEDICATION [...] 0.5 0.3 0.4 No results for input(s): [id number] in the last 82435 hours. No results for input(s): URICACID in the last 80300 hours. Last ESR: Recent Labs Component Name 08/04/22 1417 SEDRATE 5 Last 3 CRP: Recent Labs Component Name 08/04/22 1417 CRP <0.20 documented in this encounter Plan of Treatment Upcoming Encounters Date Type Department Care Team (Late st Contact Info) Description 07/02/2024 5:30 PM CDT Appointment [facility] [address] [place] [address] Karl Miller MD [address] [place] [address] documented as of this encounter Visit Diagnoses Diagnosis Knee osteonecrosis, left (HCC) Aseptic necrosis of other bone site Chronic pain of left knee Pain in joint, lower leg documented in this encounter Additional Health Concerns Infection Onset Date Last Indicated Resolved Time COVID-19 Under Investigation 03/10/2023 03/10/2023 03/10/2023 6:40 PM HTML DEVELOPER COVID-19 Under Investigation 12/16/2023 12/16/2023 12/16/2023 11:15 AM CDT documented as of this encounter Care Teams Roof Fixer Relationship Specialty Start Date End Date Santos Nguyen MD [address] [facility] [address] [place] [address] PCP - General 01/08/22 Vinod Zuñiga MD [address] [place] [address] Obstetrics and Gynecology 09/01/21 Ulysses Higgins MD [address] [place] [address] Orthopedic Surgery 05/10/22 Reji Mancuso LMSW Outpatient Flight Director Care Management 02/07/23 Brunilda Hoff MSW Flight Director 02/07/23 02/15/23 Reji Mancuso LMSW Outpatient Flight Director Care Management 03/18/2302/22 Jennifer Patel RN [address] [place] [id number] Material Control ClerkSenior Mortgage Loan Processor 12/20/23 02/10/24 Reji Mancuso LMSW Flight Director Care Management 02/17/24 02/21/24 documented as of this encounter
--- OUTSIDE RECORDS SUMMARY | 2024-05-30 22:17 | XMS_ITS | Encounter Summary ---
Author Organization [facility] Address [address] [facility] [place] [address] Care Team Providers Care Shredded Filler Cutter Operator Name Role Phone Vinod Zuñiga MD Unavailable [phone] Santos Nguyen MD Primary Care Provider [phone] Ulysses Higgins MD Unavailable [phone] Reji Mancuso [place] Unavailable [phone] Brunilda Hoff CLEANER FURNITURE Unavailable [phone] Reji Mancuso [place] Unavailable [phone] Jennifer Patel RN Unavailable [phone] Reji Mancuso [place] Unavailable [phone] Encounter Details Date Type Department Care Team (Late st Contact Info) Description 12/20/2022 Telemedicine [facility] - Rheumatology [address] [place] [address], [place] [address] Aaron Austin MD [address] [place] [address] DIV [place] [address] Social History Tobacco Use Types [...] Info) Description 07/02/2024 5:30 PM CDT Appointment [facility] MRI [address] [place] [address] Karl Miller MD [address] [place] [address] documented as of this encounter Visit Diagnoses Not on filedocumented in this encounter Additional Health Concerns Infection Onset Date Last Indicated Resolved Time COVID-19 Under Investigation 03/10/2023 03/10/2023 03/10/2023 6:40 PM TRANSIT DRIVER COVID-19 Under Investigation 12/16/2023 12/16/2023 12/16/2023 11:15 AM CDT documented as of this encounter Care Teams Shredded Filler Cutter Operator Relationship Specialty Start Date End Date Santos Nguyen MD [address] [facility] [address] [place] [address] PCP - General 01/08/22 Vinod Zuñiga MD [address] [facility] [address] [place] [address] Obstetrics and Gynecology 09/01/21 Ulysses Higgins MD [address] [place] [address] Orthopedic Surgery 05/10/22 Reji Mancuso LMSW Outpatient Regulatory Product Manager Care Management 02/07/23 Brunilda Hoff MSW Regulatory Product Manager 02/07/23 02/15/23 Reji Mancuso LMSW Outpatient Regulatory Product Manager Care Management 03/18/23 1/08/14 Jennifer Patel RN [address] [place] [address] Solar Photovoltaic Systems EngineerLandscape Manager 12/20/23 02/10/24 Reji Mancuso LMSW Regulatory Product Manager Care Management 02/17/24 02/21/24 documented as of this encounter
--- OUTSIDE RECORDS SUMMARY | 2024-05-30 22:17 | XMS_ITS | Encounter Summary ---
Author Organization [facility] Address [address] [facility] [place] [address] Care Team Providers Care Hadoop Software Engineer Name Role Phone Vinod Zuñiga MD Unavailable [phone] Santos Nguyen MD Primary Care Provider [phone] Ulysses Higgins MD Unavailable [phone] Encounter Details Date Type Department Care Team (Late st Contact Info) Description 05/25/2024 Orders Only [facility] - Rheumatology [address] 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 Therapeutic drug monitoring Encounter for therapeutic drug monitoring 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
--- OUTSIDE RECORDS SUMMARY | 2024-05-30 22:17 | XMS_ITS | Encounter Summary ---
Author Organization [facility] Address [address] [facility] [place] [address] Care Team Providers Care Welding Machine Tender Name Role Phone Vinod Zuñiga MD Unavailable [phone] Santos Nguyen MD Primary Care Provider [phone] Ulysses Higgins MD Unavailable [phone] Encounter Details Date Type Department Care Team [...] Recorded Patient Health Questionnaire-2 Score 0 04/24/2024 [facility] [place] of Occupat ional Health - Occupational Stress [...] place to sleep or slept in a senior care (including now)? No 02/02/2023 Sex and Gender [...] Appointment [facility] MRI [address] [place] [address] Karl Miller MD [address] [facility] 2L [place] [address] documented as of this encounter Visit Diagnoses Not on filedocumented in this encounter Care Teams Welding Machine Tender Relationship Specialty Start Date End Date Santos Nguyen MD [address] [facility] 305 [place] [address] PCP - General 01/08/22 Vinod Zuñiga MD [address] [place] [address] Obstetrics and Gynecology 09/01/21 Ulysses Higgins MD [address] [place] [address] Orthopedic Surgery 05/10/22 documented as of this encounter
--- OUTSIDE RECORDS SUMMARY | 2024-05-30 22:17 | XMS_ITS | Encounter Summary ---
Author Organization [facility] Address [address] [facility] [place] [address] Care Team Providers Care Special Forces Specialist Name Role Phone Vinod Zuñiga MD Unavailable [phone] Santos Nguyen MD Primary Care Provider [phone] Ulysses Higgins MD Unavailable [phone] Reji Mancuso SCRAP CUTTER Unavailable [phone] Vero Ingram COSTUME MAKER Unavailable [phone] ClaytonJob benitezra SCRAP CUTTER Unavailable Brunilda Hoff COSTUME MAKER Unavailable [employer] benitezra SCRAP CUTTER Unavailable Jennifer Patel RN Unavailable [phone] Reji Mancuso SCRAP CUTTER Unavailable [phone] Encounter Details Date Type Department Care Team (Late st Contact Info) Description 07/27/2022 Telephone [facility] - Endocrinology [address] [place] [address], [place] [address] Alejandro Layne MD [address] [place] [address] [place] [address] Social History Tobacco Use Types Packs/Day Years [...] well has ultrasound scheduled 07/29/22 done at [facility] and will have it sent over for review. Please advise. Patient Call Back number: [phone] documented in this encounter Plan of Treatment Upcoming Encounters Date Type Department Care Team (Late st Contact Info) Description 07/02/2024 5:30 PM CDT Appointment [facility] MRI [address] [place] [address] Karl Miller MD [address] [place] [address] documented as of this encounter Visit Diagnoses Not on filedocumented in this encounter Additional Health Concerns Infection Onset Date Last Indicated Resolved Time COVID-19 Under Investigation 08/03/2022 08/03/2022 08/03/2022 6:41 PM CDT COVID-19 Under Investigation 03/10/2023 03/10/2023 03/10/2023 6:40 PM OPHTHALMIC MEDICAL ASSISTANT COVID-19 Under Investigation 12/16/2023 12/16/2023 12/16/2023 11:15 AM CDT documented as of this encounter Care Teams Special Forces Specialist Relationship Specialty Start Date End Date Santos Nguyen MD [address] [address] PCP - General 01/08/22 Vinod Zuñiga MD [address] [place] [address] [address] [place], [place] [address] Obstetrics and Gynecology 09/01/21 Ulysses Higgins MD [address] [place] [address] Orthopedic Surgery 05/10/22 Reji Mancuso LMSW Outpatient Refrigeration Specialist Care Management 08/06/2207/22 Vero Ingram MSW Outpatient Refrigeration Specialist Care Management 08/06/2208/20 Reji Mancsuo LMSW Outpatient Refrigeration Specialist Care Management 02/07/23 Brunilda Hoff, MARYAM Refrigeration Specialist 02/07/23 02/15/23 Reji Mancuso LMSW Outpatient Refrigeration Specialist Care Management 03/18/23 108/14 Jennifer Patel RN [address] [place] [address] Clam TreaderConvertible Power Shovel Operator 12/20/23 02/10/24 Reji Mancuso LMSW Refrigeration Specialist Care Management 02/17/24 02/21/24 documented as of this encounter
--- OUTSIDE RECORDS SUMMARY | 2024-05-30 22:17 | XMS_ITS | Clinical Summary ---
Author Organization [facility] Address [address] [place] [address] Care Team Providers Care Classroom Paraprofessional Name Role Phone Santos Nguyen MD Primary Care Provider [phone] Allergies Active Allergy Reactions Criticality Noted Date [...] 12/09/19 22 Active vitamin D2, ergocalciferol, (DRISDOL) 63808 UNITS capsule Take 1 capsule (50,000 Units [...] 5 season) 2023 04/04/2020, 03/07/2020 PHQ-2 (Physician [place]) 02/22/2024 DTaP, Tdap and Td Vaccines ( [...] this topic Medical Devices Implanted Type Area Peoplesoft Programmer Device Identifier Shelf Expiration Date Model / Serial / Lot Chondral Dart Implanted:Qty: 1 on 10/06/2017 by Ulysses Higgins MD at [facility] Right: Ankle [employer] 04/20/2020 [id number] / / [id number] Insurance [place] Care Teams Classroom Paraprofessional Relationship Specialty Start Date End Date Santos Nguyen MD [address] [facility] [address] [place] [address] PCP - General FAMILY PRACTICE 01/01/22
--- OUTSIDE RECORDS SUMMARY | 2024-05-30 22:17 | XMS_ITS | Encounter Summary ---
Author Organization [facility] Address [facility] [place] [address] Care Team Providers Care Erp Specialist Name Role Phone Nate Arteaga MD Primary Care Provider [phone] Santos Nguyen MD Primary Care Provider [phone] Encounter Details Date Type Department Care Team (Latest Contact Info) Description 04/30/2020 MyChart Message Enc [facility] Medical Group Multispecialty Care - [facility] [address] [facility], [address] [place] [address] Darío Sanchez MD [address] [place] [address] RE: Follow Up/Update Social History Tobacco Use [...] COVID-19? No / Unsure 05/01/2020 8:18 AM SLUDGE CONTROL ATTENDANT documented as of this encounter Plan of Treatment Not on file documented as of this encounter Visit Diagnoses Not on filedocumented in this encounter Additional Health Concerns Infection Onset Date Last Indicated Resolved Time COVID-19 Rule Out 11/24/2021 11/24/2021 11/24/2021 4:26 PM CDT documented as of this encounter Care Teams Erp Specialist Relationship Specialty Start Date End Date Nate Arteaga MD [address] [place] [address] PCP - General INTERNAL MEDICINE 02/28/20 12/31/21 Santos Nguyen MD [address] [address] PCP - General FAMILY PRACTICE 01/01/22 documented as of this encounter
--- OUTSIDE RECORDS SUMMARY | 2024-05-30 22:17 | XMS_ITS | Encounter Summary ---
Author Organization [facility] Address [address] [facility] [place] [address] Care Team Providers Care Books Salesperson Name Role Phone Vinod Zuñiga MD Unavailable [phone] Santos Nguyen MD Primary Care Provider [phone] Ulysses Higgins MD Unavailable [phone] Jennifer Patel RN Unavailable [phone] Reji Mancuso ADVANCE SEAL DELIVERY SYSTEM MAINTAINER Unavailable [phone] Encounter Details Date Type Department Care Team (Late st Contact Info) Description 05/25/2023 Telephone [facility] - Rheumatology [address] [facility], [place] [address] Álvaro Barnett MD [address] [place] [address] Social History Tobacco Use Types Packs/Day Years [...] Recorded Patient Health Questionnaire-2 Score 0 03/18/2023 [facility] of Occupat ional Health - [...] place to sleep or slept in a long-term (including now)? No 02/02/2023 Sex and Gender [...] of Dr. Huffman. Patient call back number [phone] Or [phone] documented in this encounter Plan of Treatment Upcoming Encounters Date Type Department Care Team (Late st Contact Info) Description 07/02/2024 5:30 PM CDT Appointment [facility] MRI [address] [place] [phone] Karl Miller MD [address] [place] [address] documented as of this encounter Visit Diagnoses Not on filedocumented in this encounter Additional Health Concerns Infection Onset Date Last Indicated Resolved Time COVID-19 Under Investigation 12/16/2023 12/16/2023 12/16/2023 11:15 AM CDT documented as of this encounter Care Teams Books Salesperson Relationship Specialty Start Date End Date Santos Nguyen MD 10[address] [facility] 305 [place] [address] PCP - General 01/08/22 Vinod Zuñiga MD [address] [place] [address] Obstetrics and Gynecology 09/01/21 Ulysses Higgins MD [address] [place] [address] Orthopedic Surgery 05/10/22 Jennifer Patel RN [address] [place] [address] Dye House HelperTrimmer Operator 12/20/23 02/10/24 Reji Mancuso LMSW Chin Strap Cutter Care Management 02/17/24 02/21/24 documented as of this encounter
--- OUTSIDE RECORDS SUMMARY | 2024-05-30 22:18 | XMS_ITS | Continuity of Care Document ---
Author Organization [facility] Address [address] [place] [address] Phone Care Team Providers Care Rn Prior Authorization Name Role Phone Doser DPM DPM, Dayne [...] Encounter Office/outpat ient visit,est, mod [facility], [address], [id number], tel:[phone] [facility] right ankle (chief complaint) Pain in right footTarsal tunnel syndrome, right lower limb 3 Doser DPM Dayne. [address] [address], [place], [place], [id number] , [place]. tel: [phone] [facility], [address], [id number], [place] tel:[phone] [facility] Pain in right footContusion of right foot, initial encounter 2 Doser DPM Dayne. [address] [address], [place], [place], [id number] , [place]. tel: [phone] [facility], [address], [id number], [place] tel:[phone] [facility] right ankle pain (chief complaint) Pain in right footFx of right talus, initial encounter for closed fx 2 Doser KATERIN Oscar. [address] [facility], [facility] [address], [place], [place], [id number] , [place]. tel:[phone] Office/outpat ient visit,est, [facility], [address] [facility] [address], [place], [place], [id number], [place] tel:[phone] [facility] left knee (chief complaint) Pain in left knee Sep-1 2 Balaji Kunal er. [address] [facility], [facility] [address], [place], [place], [id number] , [place]. tel:[phone] [facility], [address] [address], [place], [place], [id number], [place] tel:[phone] [facility] No Information Sep-1 2 Balaji Kunal er. [address] [facility], [facility] [address], [place], [place], [id number] , [place]. [phone] [facility], [address] [address], [place], [place], [id number], [place] tel:[phone] [place] [address] Pain in right foot Sep-0 2 [facility]. [address] [facility], [place], [place], [id number] , [place]. [phone] Referring Provider: Dayne Tavares, [address] [facility] [address], [place], [address] . tel:[phone] Office/outpat ient visit,est, [facility], [address] [facility] [address], [place], [place], [id number], [place] tel:[phone] [facility] right ankle (chief complaint) Pain in right footFx of right talus, initial encounter for closed fxContusion of right foot, initial encounter Sep-0 2 Doser KATERIN Oscar. [address] [facility], [facility] [address], [place], [place], [id number] , [place]. [phone] [facility], [address] [place] [address], [id number], [place] tel:[phone] [facility] No Information Sep-0 2 Marv Holland. [address] [place] [address], [place], [place], [id number] , [place]. [phone] [facility], [address] [place] [address], [place], [place], [id number], [place] tel:[phone] [facility] No Information Sep-0 2 Marv Holland. [address] [place] [address], [place], [place], [id number] , [place]. [phone] [facility], [address] [place] [address], [place], [place], [id number], [place] tel:[phone] [facility] Pain in right foot Sep-0 2 Doser DPRiddhi Oscar. [address] [place] [address], [place], [place], [id number] , [place]. [phone] [facility], [address] [place] [address], [id number], [place] tel:[phone] [facility] Pain in left knee Sep-0 2 [facility]. [address] [place] [address], [address] , [place], [place], [id number] , [place]. tel:[phone] Referring Provider: Skyler Pereira, [address] [place] [address], [place], [address] . tel:[phone] Office/outpat ient visit,est, mod [facility], [address] [place] [address], [place], [place], [id number], [place] tel:[phone] [facility] left knee (chief complaint) Pain in left kneeSprain of medial collateral ligament of left knee, initOth tear of medial meniscus, current injury, left knee, init 2 Marv Holland. [address] [place] [address], [address], [place], [place], [id number] , [place]. tel:[phone] Office/outpat ient visit,new, mod [facility], [address] [facility] [address] [facility] [address], [place], [place], [id number], [place] tel:[phone] [facility] RIGHT ANKLE (chief complaint) Pain in right footContusion of right foot, initial encounterFx of right talus, initial encounter for closed fx Doser KATERIN Oscar. [address] [facility], [facility] [address], [place], [place], [id number] , [place]. tel: [phone] Family History Family Member Type Diagnosis Age At Onset No Information Payers Payer name Insurance type Covered democrat ID Mayi mercer(s) Jamie Grimaldo [facility] [id number] Social History Type Description Quantity Date Captured [...]
[2024-05-30 22:52] LABS: Basophils Absolute Auto 0.1 K/mm3 (0.0-0.1); Basophils Percent Auto 0.6 % (0.2-1.2); Eosinophils Absolute Auto 0.2 K/mm3 (0-0.3); Eosinophils Percent Auto 2.4 % (0-4.4); Hematocrit 38.1 % (37.0-47.0); Hemoglobin 12.8 g/dL (12.0-15.0); Immature Granulocyte Absolute 0.04 K/mm3 (0.00-0.031); Immature Granulocyte Percent A 0.4 % (0-0.5); Lymphocytes Absolute Auto 2.24 K/mm3 (0.9-3.2); Mean Corpuscular HGB Conc 33.6 g/dl (32-36); Mean Corpuscular Hemoglobin 30.8 pg (26-34); Mean Corpuscular Volume 91.6 fl (80-100); Mean Platelet Volume 10.2 fl (7.4-10.4); Monocytes Absolute Auto 0.6 K/mm3 (0.1-0.6); Monocytes Percent Auto 6.4 % (2.6-8.5); Neutrophils Absolute Auto 6.2 K/mm3 (1.3-6.7); Neutrophils Percent Auto 66.2 % (45.5-73.1); Platelet Count Result 260 k/mm3 (150-375); Red Blood Count 4.16 M/mm3 (4.2-5.4); White Blood Count 9.3 K/mm3 (4.5-10.0)
--- NOTE | 2024-05-30 23:00 | PC.NURSE ---
Pt. does not want ordered Tylenol stating I took it earlier and it didn't work. ANGIE Garvey notified.
[2024-05-30 23:04] LABS: Alanine Aminotransferase 54 U/L (6-35); Albumin Level 4.3 g/dL (3.5-5.1); Alkaline Phosphatase 85 U/L (38-126); Anion Gap 8 mmol/L (4-12); Aspartate Amino Transferase 46 U/L (14-36); Bilirubin,Total 0.3 mg/dL (0.2-1.3); Blood Urea Nitrogen 10 mg/dL (7-17); CRP 0.8 mg/dL (<1.0); Calcium 9.2 mg/dL (8.4-10.2); Carbon Dioxide 27 mmol/L (22-30); Chloride 105 mmol/L (98-107); Estimated CRCL calculation 98 ml/min; Estimated Glomerular Filt Rate > 60; Glucose 84 mg/dL (65-110); Potassium 3.5 mmol/L (3.4-5.0); Sodium 140 mmol/L (137-145)
[2024-05-30 23:17] VITALS: BP 136/78; PULSE 89; RESP 18; O2SAT 98
[2024-05-30] MEDS: HYDROmorphone HCL INJ (*CRX) 1 MG/ML SYR 0.5 MG IV PUSH (23:31)
[2024-05-31] MEDS: cefTRIAXone 2 GM/NS 100 ML 2 GM/100 ML BAG IVPB (01:21)
[2024-05-31] MEDS: VANCOMYCIN 1,250 MG/NS 250 ML 1,250 MG/250 ML BAG 166.67 MG IVPB (01:57)
[2024-05-31] MEDS: LIDOCAINE 5% PATCH 1 PATCH TRANSDERM (01:57)
[2024-05-31 02:34] VITALS: BP 123/85; PULSE 91; RESP 18; O2SAT 100
[2024-05-31 02:41] VITALS: BP 123/85; PULSE 82; RESP 18; O2SAT 99
== END 2024-05-31 02:53 | disposition short-term general hospital (02) ==
PROVIDERS: Registered Nurse; Emergency Provider Physician Assistant
DX: L03.213 Periorbital cellulitis (principal); H00.034 Abscess of left upper eyelid; F17.290 Nicotine dependence, other tobacco product, uncomplicated; K21.9 Gastro-esophageal reflux disease without esophagitis; M06.9 Rheumatoid arthritis, unspecified; Z85.42 Personal history of malignant neoplasm of other parts of uterus
CPT/HCPCS: 36415; 70481; 80053; 85025; 86140; 96365; 96366; 96367; 96374; 99285; A9270; J0696; J1171; J3370; Q9967

== ENCOUNTER 2024-09-12 17:58 | Emergency (ER) | payer OTHER, SELFPAY ==
[2024-09-12 18:06] VITALS: BP 132/73; PULSE 62; RESP 18; TEMP 36.9; O2SAT 97
--- NOTE | 2024-09-12 18:29 | ED_ITS ---
HPI - General Adult General Chief complaint: Skin/Abscess/Foreign Body Stated complaint: Insect Bite/Body Pain Source: patient Mode of arrival: ambulatory Limitations: no limitations History of Present Illness HPI narrative: Pt is a 44 y/o female presenting with c/o insect bite. Pt states she was laying on a raft in her pool, dozed off and woke up to find either a wasp or a hornet on her L. lower abdomen. Pt states she swatted it away. Reports severe, Deep, generalized pain since insect sting. 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 Pt states she read online that the wasp sting can cause her chronic condition to worsen which is why she came here today. 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 No additional complaints. Related Data Home Medications ?Medication ?Instructions ?Recorded ?Confirmed ?Last Taken ?Type dextroamphetamine-amphetamine 30 30 mg PO DAILY 12/12/23 05/30/24 Unknown History mg tablet gabapentin 600 mg tablet 600 mg PO DAILY 12/12/23 05/30/24 Unknown History hydroxyzine HCl 25 mg tablet 25 mg PO DAILY 12/12/23 05/30/24 Unknown History omeprazole 40 mg capsule,delayed 40 mg PO DAILY 12/12/23 05/30/24 Unknown History release diazepam 5 mg tablet (Valium) 5 mg PO TID PRN anxiety 04/02/24 05/30/24 Unknown History methotrexate (PF) 25 mg/0.5 mL 25 mg subcut WEEKLY 04/02/24 05/30/24 Unknown History subcutaneous auto-injector doxepin 10 mg capsule 10 mg PO HS 05/30/24 05/30/24 Unknown History famotidine 40 mg tablet 40 mg PO DAILY 05/30/24 05/30/24 Unknown History folic acid 1 mg tablet 1 mg PO DAILY 05/30/24 05/30/24 Unknown History lidocaine 5 % topical patch 1 patch topical Q24H 05/30/24 09/12/24 Unknown History tofacitinib 11 mg tablet,extended 11 mg PO Q24H 05/30/24 05/30/24 Unknown History release 24 hr (Xeljanz XR) Allergies Allergy/AdvReac Type Severity Reaction Status Date / Time benzonatate (From Tessalon Allergy Hives Verified 09/12/24 18:53 Sherif) morphine AdvReac Mild NAUSEA AND Verified 09/12/24 18:53 VOMITING; SEVERE MIGRAINE NSAIDS (Non-Steroidal AdvReac Unknown Nausea and Verified 09/12/24 18:53 Anti-Inflamma Vomiting HAIR DYE Allergy Unknown Itching Uncoded 09/12/24 18:53 Review of Systems Review of Systems: CONSTITUTIONAL: Denies body aches, fever, chills, or sweats. EYES: Denies visual changes, redness, or discharge. ENT: Denies rhinorrhea, congestion, sore throat, or otalgia. CARDIOVASCULAR: Denies chest pain, palpitations, or edema. RESPIRATORY: Denies cough or dyspnea. GASTROINTESTINAL: Reports abdominal pain, denies nausea, vomiting, or diarrhea. GENITOURINARY: Denies dysuria or hematuria. SKIN: reports wasp/hornet sting to LLQ MUSCULOSKELETAL: Reports pain everywhere. NEUROLOGIC: Denies headache, numbness, tingling, or weakness. All systems reviewed & are unremarkable except as noted in HPI and below PMFSH Past Medical History Medical History GERD (gastroesophageal reflux disease) Neck pain Rheumatoid arthritis Uterine cancer Chiari malformation Surgical History Surgical History History of cholecystectomy History of bilateral breast reduction surgery History of hysterectomy History of brain surgery Decompression surgery Family History Family History Father Alive and well Mother Hypertension Heart disease Seizures Grandparent Family history of malignant neoplasm of cervix Father Patient's father is Mother Family history of epilepsy Social History Social History Smoking packs per day: 0.25 Smoking cigarettes per day: 5.0 Years smoked: 10 Smoking pack-years: 2.50 Smoking status: Light tobacco smoker Tobacco type: e-cigarettes/vaping Second hand tobacco smoke exposure: No Alcohol intake: current Substance use: current Substance use type: marijuana Do You Feel Safe in your Home?: Yes Lack of Transportation: YES Lack of Food: Sometimes True Current Housing: I Have Housing Concerned About Future Housing: No Difficulty Paying Gas/Electric Bills: YES Difficulty Paying for Meds: YES Currently Unemployed: No Education: Associate Degree Difficulty w/ Childcare or Family Care: No Living arrangements: with family Occupation/Education: occupation Additional occupation/education comments: Currently working from home scheduled to return next week per Yvonne Gender identity (if verbalized by the patient): Female Exam Narrative: GENERAL: Well-appearing, well-nourished, drowsy, thrashing around in exam room chair HEAD: Normocephalic, atraumatic. EYES: EOMI. No redness or drainage. Conjunctivae normal. ENT: Mucous membranes pink and moist. Nares clear. No rhinorrhea. TMs normal bilaterally. Throat normal. Tongue midline. Uvula midline. NECK: Normal AROM. Supple. CHEST: No respiratory distress. Clear to auscultation. HEART: Regular rate and rhythm. No murmur appreciated. Normal peripheral pulses. ABDOMEN: Soft, nontender, nondistended, normal active bowel sounds. MUSCULOSKELETAL: No bony tenderness. EXTREMITIES: Normal range of motion. No edema. SKIN: 3 cm area of erythema with central punctate lesion. No drainage. No lymphatic streaking. NonTTP. No evidence of retained stinger. Capillary refill normal. Normal skin turgor. NEURO: No focal deficits. Alert and oriented x3. Gait steady. PSYCH: Normal affect. No signs of depression or anxiety. Course Course Emergency Course: Pt called myself and RN back into room several times during EXPcare visit stating her legs were swelling and she saw hives on her calves. Pt evaluated numerous times during EXPcare visit--no obvious swelling to lower extremities. No urticaria noted at all to body. Pt then told us the swelling is deep within my legs. I once again, offered to transfer to pt to ER, she declined stating I just want to go to my friends house. I offered to administer solumedrol--continues to decline. Offered to Rx prednisone, continues to decline. Strict ER precautions discussed at length. Level of Care: Express Care Visit Vital Signs Vital signs: Vital Signs Temperature 98.4 F 09/12/24 18:06 Pulse Rate 62 09/12/24 18:06 Respiratory Rate 18 09/12/24 18:06 Blood Pressure 132/73 09/12/24 18:06 Pulse Oximetry 97 09/12/24 18:06 Oxygen Delivery Room Air 09/12/24 18:06 Temperature 98.4 F 09/12/24 18:06 Pulse Rate 62 09/12/24 18:06 Respiratory Rate 18 09/12/24 18:06 Blood Pressure 132/73 09/12/24 18:06 Pulse Oximetry 97 09/12/24 18:06 Oxygen Delivery Room Air 09/12/24 18:06 Medical Decision Making MDM Narrative Medical decision making narrative: When I initially lightly palpated the area of reported insect sting, she thrashed around in pain. Shortly after, I asked her to pull her dress back up to visualize the area again. She laid her hand, heavily, directly over the affected area and did not flinch. I asked her if where she was holding her hand on her abdomen hurt to which she replied no, it's much deeper. I then informed her that she has her hand right over the insect sting--she then immediately moved her hand. I offered to administer solumedrol here, she declined stating she has taken too much prednisone in the past which has caused AVN. The insect sting appears to be localized, typical reaction. No evidence of anaphylaxis. Offered to transfer to ER for further monitoring/work up-she declined. I strongly encouraged her to call coding and reimbursement specialist when she leaves. Vital Signs Vital Signs: Vital Signs Temperature 98.4 F 09/12/24 18:06 Pulse Rate 62 09/12/24 18:06 Respiratory Rate 18 09/12/24 18:06 Blood Pressure 132/73 09/12/24 18:06 Pulse Oximetry 97 09/12/24 18:06 Oxygen Delivery Room Air 09/12/24 18:06 Temperature 98.4 F 09/12/24 18:06 Pulse Rate 62 09/12/24 18:06 Respiratory Rate 18 09/12/24 18:06 Blood Pressure 132/73 09/12/24 18:06 Pulse Oximetry 97 09/12/24 18:06 Oxygen Delivery Room Air 09/12/24 18:06 Discharge Plan Discharge Clinical Impression: Accidental insect sting Patient Disposition: Home Condition: Stable Instructions: Insect Bite or Sting (ED) Additional Instructions: Go straight to ER should your symptoms become worse or should any new symptoms develop Patient Language: Belgian Prescriptions: No Action gabapentin 600 mg tablet 600 mg PO DAILY omeprazole 40 mg capsule,delayed release(DR/EC) 40 mg PO DAILY dextroamphetamine-amphetamine 30 mg tablet 30 mg PO DAILY hydroxyzine HCl 25 mg tablet 25 mg PO DAILY cyclobenzaprine 10 mg tablet 10 mg PO TID PRN (Reason: muscle spasm) Qty: 20 0RF doxepin 10 mg capsule 10 mg PO HS famotidine 40 mg tablet 40 mg PO DAILY folic acid 1 mg tablet 1 mg PO DAILY lidocaine 5 % adhesive patch,medicated 1 patch topical Q24H Xeljanz XR 11 mg tablet extended release 24 hr 11 mg PO Q24H methotrexate (PF) 25 mg/0.5 mL auto-injector 25 mg subcut WEEKLY diazepam [Valium] 5 mg tablet 5 mg PO TID PRN (Reason: anxiety) Follow-up/Referrals: PHYSICIAN,VETERINARY LABORATORY TECHNICIAN [Primary Care Provider] - Time of Disposition: 18:42
== END 2024-09-12 19:15 | disposition home or self-care (01) ==
PROVIDERS: Emergency Provider Registered Nurse
DX: T63.481A Toxic effect of venom of other arthropod, accidental (unintentional), initial encounter (principal); K21.9 Gastro-esophageal reflux disease without esophagitis; M06.9 Rheumatoid arthritis, unspecified; Q07.00 Arnold-Chiari syndrome without spina bifida or hydrocephalus; F17.210 Nicotine dependence, cigarettes, uncomplicated; F17.290 Nicotine dependence, other tobacco product, uncomplicated; F12.90 Cannabis use, unspecified, uncomplicated; Z85.42 Personal history of malignant neoplasm of other parts of uterus
CPT/HCPCS: 99211; G0463